=== PATIENT | female | born 1955 ===

== ENCOUNTER 2016-12-26 15:36 | Inpatient (IN) | payer OTHER, SELFPAY ==
[2016-12-26 15:36] VITALS: BMI 18.1
--- NOTE | 2016-12-26 16:10 | C.PDOC ---
History Of Present Illness 61 y/o female presents to the ED complaining of intermittent episodes of shortness of breath and chest tightness, worse since yesterday. Patient notes chest pain last night during the night and again today at noon which radiated to the neck and shoulders. she was brought by EMS and treated with Albuterol/ Atrovent and solumedrol enroute. Note that the patient has history of hypertension, COPD, [place], and prior CVA. She also has recent diagnosis of carcinoma of the rectum for which she has had surgery and follow up with GI. Patient also follows up in the clinic on a regular basis and is noted to have had several admissions for COPD exacerbation. Today patient also complains of some abdominal pain but she denies fever, nausea, vomiting, rash, pain/swelling of the legs, or other complaints. She admits to drinking alcohol 2 nights ago and now c/o feeling shaky. Time Seen by Provider: 12/26/16 15:49 Chief Complaint (Nursing): Respiratory Distress History Per: Patient History/Exam Limitations: no limitations Onset/Duration Of Symptoms: Days, Intermittent Episodes, Persistent, Worse Since (yesterday) Current Symptoms Are (Timing): Still Present Quality: Tightness Current Respiratory Medications: See Home Med List Recent travel outside of the [place]: No Past Medical History Reviewed: Historical Data, Nursing Documentation, Vital Signs Vital Signs: Last Vital Signs Temp 98.5 F 12/26/16 15:47 Pulse 87 12/26/16 17:21 Resp 18 12/26/16 17:21 BP 121/78 12/26/16 17:21 Pulse Ox 98 12/26/16 17:21 - Medical History PMH: Arthritis (B/L KNEE 4 YRS; L SH STIFF), Asthma, COPD, Emphysema, HTN Other PMH: colon ca Surgical History: Appendectomy - [facility] Procedures EXCISION OF ASCENDING COLON, ENDO (07/16/16) EXCISION OF RECTUM, ENDO, DIAGN (07/16/16) EXCISION OF TRANSVERSE COLON, ENDO (07/16/16) INDIVIDUAL PSYCHOTHERAPY, SUPPORTIVE (11/05/16) INTRODUCTION OF ELECTROL/WATER BAL INTO LOW GI, ENDO (07/16/16) Family History: States: Unknown Family Hx - Social History Hx Tobacco Use: Yes Hx Alcohol Use: No Hx Substance Use: No - Immunization History Hx Tetanus Toxoid Vaccination: No Hx Influenza Vaccination: No Hx Pneumococcal Vaccination: No Review Of Systems Except As Marked, All Systems Reviewed And Found Negative. Constitutional: Negative for: Fever Cardiovascular: Positive for: Chest Pain Respiratory: Positive for: Shortness of Breath Gastrointestinal: Positive for: Abdominal Pain. Negative for: Nausea, Vomiting Musculoskeletal: Negative for: Leg Pain (or swelling) Skin: Negative for: Rash Physical Exam - Physical Exam Appears: Non-toxic, Other (in respiratory distress) Skin: Normal Color, Warm, Dry, No Rash Head: Atraumatic, Normacephalic Eye(s): bilateral: Normal Inspection, PERRL Neck: Normal ROM Chest: Symmetrical, No Tenderness Cardiovascular: Rhythm Regular Respiratory: Rales (bibasilar), No Rhonchi, Wheezing (diffuse), Other (tachypnic ) Gastrointestinal/Abdominal: Soft, Tenderness, No Mass, No Guarding, No Rebound Back: Normal Inspection, No CVA Tenderness Extremity: Normal ROM, No Tenderness, No Swelling Extremity: Bilateral: Atraumatic, Normal Color And Temperature Neurological/Psych: Oriented x3, Normal Speech, Normal Cognition ED Course And Treatment - Laboratory Results Result Diagrams: 12/26/16 16:27 12/26/16 16:27 Lab Interpretation: No Acute Changes ECG: Interpreted By Me ECG Rhythm: Sinus Rhythm ECG Interpretation: No Acute Changes O2 Sat by Pulse Oximetry: 97 (ra) Pulse Ox Interpretation: Normal - Radiology CXR: Interpreted by Me CXR Interpretation: Yes: No Acute Disease, COPD, Other (chronic elevation of right hemidiaphragm, 2 clips seen in the rt hemithorax.) Progress Note: Patient comfortable without further respiratory distress. She states that she feels shaky after drinking 2 days ago and would like something to "calm down". She does not appear to have any signs of alcohol withdrawal. Reevaluation Time: 17:59 Reassessment Condition: Improved - Physician Consult Information Time Consulting Physician Contacted: 18:01 Physician Contacted: Daren Strickland Outcome Of Conversation: He knows the patient well and will keep her for exacerbation of COPD with chest pain. Medical Decision Making Medical Decision Making: Plan: * EKG * CXR * Blood Work * Nitrostat SL Tab Disposition - Disposition Disposition: HOSPITALIZED Disposition Time: 18:00 Condition: IMPROVED - POA Present On Arrival: None - Clinical Impression Clinical Impression: Acute exacerbation of chronic obstructive pulmonary disease (COPD) - Scribe Statement The provider has reviewed the documentation as recorded by the Scribe (Addie Portillo) Provider Attestation: All medical record entries made by the Scribe were at my direction and personally dictated by me. I have reviewed the chart and agree that the record accurately reflects my personal performance of the history, physical exam, medical decision making, and the department course for this patient. I have also personally directed, reviewed, and agree with the discharge instructions and disposition.
[2016-12-26 16:33] LABS: BASO # 0.1 K/uL (0.0-0.2); BASO % 0.6 % (0.0-2.0); EOS % 0.3 % (0.0-4.0); LYMPH % 28.9 % (20.0-40.0); MEAN CELL VOLUME 96.7 fL (81.0-99.0); MEAN CORPUSCULAR HEMOGLOBIN 32.1 pg (27.0-31.0); MEAN CORPUSCULAR HGB CONC 33.2 g/dL (33.0-37.0); MEAN PLATELET VOLUME 6.9 fL (7.2-11.7); MONO # 0.6 K/uL (0.0-0.8); MONO % 5.5 % (0.0-10.0); RED CELL DISTRIBUTION WIDTH 15.6 % (11.5-14.5); WHITE BLOOD COUNT 10.5 K/uL (4.8-10.8)
--- NOTE | 2016-12-26 16:36 | RAD ---
PROCEDURE: CHEST RADIOGRAPH, 1 VIEW HISTORY: chest pain COMPARISON: 11/04/2016. FINDINGS: LUNGS: No focal airspace opacity. PLEURA: No pneumothorax or pleural fluid seen.Biapical pleural parenchymal thickening noted. CARDIOVASCULAR: Normal. OSSEOUS STRUCTURES: The osseous structures demonstrate degenerative changes. VISUALIZED UPPER ABDOMEN: Upper abdomen is suboptimally evaluated. OTHER FINDINGS: Nonspecific elevation of the right hemidiaphragm and blunting of the right costophrenic angle essentially unchanged since the prior radiograph from 11/04/2016. Clips in the right paratracheal region. IMPRESSION: Clear lungs. No significant interval change.
[2016-12-26 16:41] LABS: CHLORIDE 104 mmol/L (98-107); POTASSIUM 3.8 mmol/L (3.6-5.2); SODIUM 140 mmol/L (132-148)
[2016-12-26 16:43] LABS: ALB/GLOB RATIO 1.4 (1.0-2.1); ALKALINE PHOSPHATASE 58 U/L (38-126); AST/SGOT 27 U/L (14-36); BILIRUBIN,TOTAL 0.6 mg/dL (0.2-1.3); CARBON DIOXIDE 21 mmol/L (22-30); GFR AFRICAN-AMERICAN > 60; TOTAL PROTEIN 6.5 g/dL (6.3-8.3)
[2016-12-26 16:44] LABS: ALT/SGPT 20 U/L (9-52); BLOOD UREA NITROGEN 16 mg/dL (7-17); CALCIUM 8.1 mg/dl (8.6-10.4); GLUCOSE,RANDOM 80 mg/dL (65-105)
[2016-12-26] MEDS ORDERED: Albuterol-Ipratrop 3 mg / 0.5 (3 ml) UD INH PRN (19:30)
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
[2016-12-26] MEDS ORDERED: cefTRIAXone IV 1 gm in Dextros 0 ML IVPB ONE (20:19)
[2016-12-26] MEDS ORDERED: Morphine 4 MG/ML VIAL ONE (20:32)
[2016-12-26] MEDS: Sodium Chloride 0.9% 1,000 ML IV SCH (20:44)
[2016-12-26] MEDS: Morphine 4 MG/ML VIAL IVP PRN (20:45)
[2016-12-27] MEDS: Morphine 4 MG/ML VIAL IVP PRN ×4 (00:49→18:05)
[2016-12-27] MEDS: Sodium Chloride 0.9% 1,000 ML IV SCH ×3 (04:53→15:45)
[2016-12-27 07:51] LABS: BASO % 0.1 % (0.0-2.0); HEMATOCRIT 43.2 % (34.0-47.0); LYMPH # 1.1 K/uL (1.0-4.3); LYMPH % 10.8 % (20.0-40.0); MEAN CELL VOLUME 98.1 fL (81.0-99.0); MEAN CORPUSCULAR HEMOGLOBIN 32.1 pg (27.0-31.0); MEAN CORPUSCULAR HGB CONC 32.7 g/dL (33.0-37.0); MEAN PLATELET VOLUME 7.4 fL (7.2-11.7); MONO # 0.4 K/uL (0.0-0.8); MONO % 4.3 % (0.0-10.0); NRBC % 0.1 % (0.0-2.0); RED CELL DISTRIBUTION WIDTH 15.7 % (11.5-14.5); WHITE BLOOD COUNT 10.2 K/uL (4.8-10.8)
[2016-12-27 07:53] LABS: CHLORIDE 103 mmol/L (98-107); POTASSIUM 4.6 mmol/L (3.6-5.2); SODIUM 138 mmol/L (132-148)
[2016-12-27 07:55] LABS: ALB/GLOB RATIO 1.5 (1.0-2.1); BILIRUBIN,TOTAL 0.7 mg/dL (0.2-1.3); CARBON DIOXIDE 23 mmol/L (22-30); CHOLESTEROL 139 mg/dL (0-199); GFR AFRICAN-AMERICAN > 60
[2016-12-27 07:56] LABS: ALKALINE PHOSPHATASE 64 U/L (38-126); ALT/SGPT 8 U/L (9-52); AST/SGOT 23 U/L (14-36); BLOOD UREA NITROGEN 12 mg/dL (7-17); CALCIUM 8.8 mg/dl (8.6-10.4); GLUCOSE,RANDOM 103 mg/dL (65-105); MAGNESIUM 1.9 mg/dL (1.6-2.3)
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
[2016-12-27] MEDS ORDERED: MethylPREDNISolone 40 mg Vial IVP SCH (10:00)
--- NOTE | 2016-12-27 10:40 | CP.PCM.PN ---
<Grace Domingo - Last Filed: 12/27/16 12:47> Subjective - Date & Time of Evaluation Date of Evaluation: 12/27/16 Time of Evaluation: 10:37 - Subjective Subjective: Patient seen and examined at bedside. She states she is feeling better today but continues to have abdominal cramping and shortness of breath. Patient describes her chest as feeling tight. She was only given one breathing treatment last night. Patient reports she was able to sleep well last night. She denies nausea but continues to have poor appetite. Objective - Vital Signs/Intake and Output Vital Signs (last 24 hours): Temp Pulse Resp BP Pulse Ox 98.2 F 79 20 149/87 99 12/27/16 09:30 12/27/16 09:30 12/27/16 09:30 12/27/16 09:30 12/27/16 04:30 Intake and Output: 12/27/16 12/27/16 06:59 18:59 Intake Total 900 Output Total 400 Balance 500 - Medications Medications: Current Medications Albuterol/Ipratropium (Duoneb 3 Mg/0.5 Mg (3 Ml) Ud) 3 ml INH RQ6 PRN PRN Reason: Shortness of Breath Amlodipine Besylate (Norvasc) 5 mg PO DAILY [facility] Last Admin: 12/27/16 09:23 Dose: 5 mg Aspirin (Ecotrin) 81 mg PO DAILY [facility] Budesonide (Pulmicort Respules) 0.25 mg INH RQ12 [facility] Escitalopram Oxalate (Lexapro) 5 mg PO DAILY [facility] Last Admin: 12/27/16 09:23 Dose: 5 mg Heparin Sodium (Porcine) (Heparin) 5,000 units SC Q12 [facility] Last Admin: 12/27/16 09:48 Dose: 5,000 units Sodium Chloride (Sodium Chloride 0.9%) 1,000 mls @ 100 mls/hr IV .Q10H [facility] Last Admin: 12/27/16 04:53 Dose: 100 mls/hr Lisinopril (Zestril) 5 mg PO DAILY [facility] Last Admin: 12/27/16 09:23 Dose: 5 mg Lorazepam (Ativan) 1 mg PO Q3H PRN PRN Reason: withdrawal Last Admin: 12/27/16 04:49 Dose: 1 mg Methylprednisolone (Solu-Medrol) 40 mg IVP TID [facility] Last Admin: 12/27/16 09:22 Dose: 40 mg Mirtazapine (Remeron) 7.5 mg PO HS [facility] Last Admin: 12/26/16 22:29 Dose: 7.5 mg Morphine Sulfate (Morphine) 3 mg IVP Q4 PRN PRN Reason: Pain, moderate (4-7) Last Admin: 12/27/16 04:49 Dose: 3 mg Ondansetron HCl (Zofran Inj) 4 mg IVP Q6H PRN PRN Reason: Nausea/Vomiting Tiotropium [place] (Spiriva) 18 mcg INH RQ24 [facility] - Labs Labs: 12/27/16 07:34 12/27/16 07:34 - Constitutional Appears: Non-toxic, No Acute Distress, Cachectic - Head Exam Head Exam: ATRAUMATIC, NORMAL INSPECTION, NORMOCEPHALIC - Eye Exam Eye Exam: EOMI, Normal appearance, PERRL - Neck Exam Neck Exam: Full ROM, Normal Inspection - Respiratory Exam Respiratory Exam: Wheezes, NORMAL BREATHING PATTERN - Cardiovascular Exam Cardiovascular Exam: +S1, +S2. absent: Tachycardia - GI/Abdominal Exam GI & Abdominal Exam: Soft, Normal Bowel Sounds. absent: Tenderness - Extremities Exam Extremities Exam: Normal Inspection. absent: Pedal Edema, Tenderness - Back Exam Back Exam: NORMAL INSPECTION - Neurological Exam Neurological Exam: Alert, Awake, Oriented x3 - Psychiatric Exam Psychiatric exam: Anxious - Skin Skin Exam: Intact, Normal Color, Warm Assessment and Plan - Assessment and Plan (Free Text) Assessment: Chest Pain Rule out Acute Coronary Syndrome Troponin I <0.0120, <0.0120, <0.0102 and EKGs (12/26, 16:04): normal sinus rhythm at 84 (12/26; 00:30) normal sinus rhythm at 92, left atrial enlargement. Chest X-ray: Clear lungs. No significant interval change. Continue on home medications: Norvasc 5 mg po daily, Zestril 5 mg po daily. Continue on Coreg 3.125 mg po BID and Aspirin 81 mg po daily Morphine 2 mg IVP q4 PRN for moderate pain hemoglobin a1c 5.1 triglycerides 75, cholesterol 139, LDL <30, HDL 109 Monitor Shortness of Breath History of COPD Started on Duoneb 3 ml INH RQ6 [facility] instead of PRN Continue on Pulmicort 0,25 mg INH RQ12, Spiriva 18 mcg INH RQ24, and Solumedrol 40 mg IVP TID Monitor Alcohol Abuse Disorder No active signs of withdrawal Ativan 1 mg po q3h PRN for withdrawal Normal Saline IV @100cc History of Rectal Adenocarcinoma Per GI, Dr. Nixon, patient was informed that rectal lesion was removed via endoscopic mucosal resection with negative margins per pathology report. Recommends surgical evaluation for wider excision where rectal lesion was to ensure complete resection to minimize risk of recurrence as there is a chance complete resection was not achieved. Patient requires close outpatient follow- up with frequent endoscopyic evaluations and sigmoidoscopy April 2017. Patient is requesting surgical evaluation. General surgery, Dr. Carey, consulted. Help appreciated. Start on Pepcid 20 mg po daily Start Ensure TID Depression Lexapro 5 mg po daily Started on Remeron 7.5 mg po HS for insomnia and poor appetite Prophylaxis Heparin 5000 U SC Q12 [facility] Zofran 4 mg IVP q6h PRN for nausea Heart Healthy Diet <Daren Strickland H - Last Filed: 12/27/16 15:42> Objective - Vital Signs/Intake and Output Vital Signs (last 24 hours): Temp Pulse Resp BP Pulse Ox 98.2 F 79 20 149/87 99 12/27/16 09:30 12/27/16 09:30 12/27/16 09:30 12/27/16 09:30 12/27/16 04:30 Intake and Output: 12/27/16 12/27/16 06:59 18:59 Intake Total 900 Output Total 400 Balance 500 - Medications Medications: Current Medications Albuterol/Ipratropium (Duoneb 3 Mg/0.5 Mg (3 Ml) Ud) 3 ml INH RQ6 [facility] Amlodipine Besylate (Norvasc) 5 mg PO DAILY [facility] Last Admin: 12/27/16 09:23 Dose: 5 mg Aspirin (Ecotrin) 81 mg PO DAILY [facility] Last Admin: 12/27/16 10:41 Dose: 81 mg Budesonide (Pulmicort Respules) 0.25 mg INH RQ12 [facility] Last Admin: 12/27/16 11:03 Dose: 0.25 mg Escitalopram Oxalate (Lexapro) 5 mg PO DAILY [facility] Last Admin: 12/27/16 09:23 Dose: 5 mg Famotidine (Pepcid) 20 mg PO DAILY [facility] Guaifenesin/Dextromethorphan (Robitussin Dm) 10 ml PO Q4H PRN PRN Reason: Cough and congestion Heparin Sodium (Porcine) (Heparin) 5,000 units SC Q12 [facility] Last Admin: 12/27/16 09:48 Dose: 5,000 units Sodium Chloride (Sodium Chloride 0.9%) 1,000 mls @ 100 mls/hr IV .Q10H [facility] Last Admin: 12/27/16 14:25 Dose: 100 mls/hr Lisinopril (Zestril) 5 mg PO DAILY [facility] Last Admin: 12/27/16 09:23 Dose: 5 mg Lorazepam (Ativan) 1 mg PO Q3H PRN PRN Reason: withdrawal Last Admin: 12/27/16 10:28 Dose: 1 mg Methylprednisolone (Solu-Medrol) 40 mg IVP Q8H [facility] Mirtazapine (Remeron) 7.5 mg PO HS [facility] Last Admin: 12/26/16 22:29 Dose: 7.5 mg Morphine Sulfate (Morphine) 3 mg IVP Q4 PRN PRN Reason: Pain, moderate (4-7) Last Admin: 12/27/16 10:28 Dose: 3 mg Ondansetron HCl (Zofran Inj) 4 mg IVP Q6H PRN PRN Reason: Nausea/Vomiting Tiotropium [place] (Spiriva) 18 mcg INH RQ24 [facility] Last Admin: 12/27/16 11:02 Dose: Not Given - Labs Labs: 12/27/16 07:34 12/27/16 07:34 Attending/Attestation - Attestation I have personally seen and examined this patient.: Yes I have fully participated in the care of the patient.: Yes I have reviewed all pertinent clinical information, including history, physical exam and plan: Yes Notes (Text): Medical attending: Patient was seen and examined by me, agrees the above note by medical records tech. The patient is still on IV Solu-Medrol, Pulmicort, Spiriva. When we saw her she she did appear more calm than when we saw her the previous night, she is getting the Ativan for withdrawal. Her breathing is not as labored as yesterday however she still has the amount of wheezing bilaterally on exam. She was also evaluated by GI as well with regards to the history of rectal CA, and at this there is a surgical evaluation pending in case there needs to be further removal the area. Thank you very much, Daren Strickland
[2016-12-27] MEDS: Tiotropium 18 mcg Cap For Inhalation INH SCH (11:02)
[2016-12-27] MEDS: Budesonide 0.25 mg/2 ml Inhal Susp UD INH SCH ×2 (11:03→19:49)
[2016-12-27 14:56] LABS: CARCINOEMBRYONIC ANTIGEN 2.9 ng/mL (0-3.0)
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
[2016-12-27] MEDS: MethylPREDNISolone 40 mg Vial IVP SCH (16:51)
[2016-12-27] MEDS: Albuterol-Ipratrop 3 mg / 0.5 (3 ml) UD INH SCH (19:49)
[2016-12-28] MEDS: Albuterol-Ipratrop 3 mg / 0.5 (3 ml) UD INH SCH ×4 (01:21→20:02)
[2016-12-28] MEDS: Sodium Chloride 0.9% 1,000 ML IV SCH (01:39)
[2016-12-28] MEDS: MethylPREDNISolone 40 mg Vial IVP SCH ×3 (01:40→17:27)
[2016-12-28] MEDS: Morphine 4 MG/ML VIAL IVP PRN ×3 (05:23→17:37)
--- NOTE | 2016-12-28 07:10 | CP.PCM.PN ---
<Grace Domingo - Last Filed: 12/28/16 15:35> Subjective - Date & Time of Evaluation Date of Evaluation: 12/28/16 Time of Evaluation: 07:09 - Subjective Subjective: Patient seen and examined at bedside. Patient states she continues to feel chest congestion, wheezing, cough and shortness of breath. She denies fever and chills. Patient reports she is tolerating Ensures but has not eaten other food. She continues to have abdominal pain. Patient denies chest pain, palpitations, nausea, vomiting, diarrhea, constipation and dysuria. Objective - Vital Signs/Intake and Output Vital Signs (last 24 hours): Temp Pulse Resp BP Pulse Ox 98 F 81 20 138/85 97 12/27/16 23:35 12/28/16 00:00 12/27/16 23:35 12/27/16 23:35 12/27/16 23:35 Intake and Output: 12/28/16 12/28/16 06:59 18:59 Intake Total 950 Balance 950 - Medications Medications: Current Medications Albuterol/Ipratropium (Duoneb 3 Mg/0.5 Mg (3 Ml) Ud) 3 ml INH RQ6 [facility] Last Admin: 12/28/16 01:21 Dose: Not Given Amlodipine Besylate (Norvasc) 5 mg PO DAILY [facility] Last Admin: 12/27/16 09:23 Dose: 5 mg Aspirin (Ecotrin) 81 mg PO DAILY [facility] Last Admin: 12/27/16 10:41 Dose: 81 mg Budesonide (Pulmicort Respules) 0.25 mg INH RQ12 [facility] Last Admin: 12/27/16 19:49 Dose: 0.25 mg Escitalopram Oxalate (Lexapro) 5 mg PO DAILY [facility] Last Admin: 12/27/16 09:23 Dose: 5 mg Famotidine (Pepcid) 20 mg PO DAILY [facility] Guaifenesin/Dextromethorphan (Robitussin Dm) 10 ml PO Q4H PRN PRN Reason: Cough and congestion Heparin Sodium (Porcine) (Heparin) 5,000 units SC Q12 [facility] Last Admin: 12/27/16 21:39 Dose: 5,000 units Sodium Chloride (Sodium Chloride 0.9%) 1,000 mls @ 100 mls/hr IV .Q10H [facility] Last Admin: 04/21/17 01:39 Dose: 100 mls/hr Lisinopril (Zestril) 5 mg PO DAILY [facility] Last Admin: 12/27/16 09:23 Dose: 5 mg Lorazepam (Ativan) 1 mg PO Q3H PRN PRN Reason: withdrawal Last Admin: 12/28/16 06:31 Dose: 1 mg Methylprednisolone (Solu-Medrol) 40 mg IVP Q8H [facility] Last Admin: 12/28/16 01:40 Dose: 40 mg Mirtazapine (Remeron) 7.5 mg PO HS [facility] Last Admin: 12/27/16 21:59 Dose: 7.5 mg Morphine Sulfate (Morphine) 3 mg IVP Q4 PRN PRN Reason: Pain, moderate (4-7) Last Admin: 12/28/16 05:23 Dose: 3 mg Ondansetron HCl (Zofran Inj) 4 mg IVP Q6H PRN PRN Reason: Nausea/Vomiting Tiotropium Win[place]red (Spiriva) 18 mcg INH RQ24 [facility] Last Admin: 12/27/16 11:02 Dose: Not Given - Labs Labs: 12/27/16 07:34 12/27/16 07:34 - Constitutional Appears: Non-toxic, No Acute Distress, Cachectic - Head Exam Head Exam: ATRAUMATIC, NORMAL INSPECTION, NORMOCEPHALIC - Eye Exam Eye Exam: EOMI, PERRL - ENT Exam ENT Exam: Mucous Membranes Moist - Respiratory Exam Respiratory Exam: Rhonchi, Wheezes, NORMAL BREATHING PATTERN. absent: Rales - Cardiovascular Exam Cardiovascular Exam: +S1, +S2. absent: Tachycardia - GI/Abdominal Exam GI & Abdominal Exam: Soft, Normal Bowel Sounds. absent: Tenderness - Extremities Exam Extremities Exam: Normal Inspection. absent: Pedal Edema, Tenderness - Neurological Exam Neurological Exam: Alert, Awake, Oriented x3 - Psychiatric Exam Psychiatric exam: Normal Affect, Normal Mood - Skin Skin Exam: Intact, Normal Color, Warm Assessment and Plan - Assessment and Plan (Free Text) Assessment: Chest Pain Rule out Acute Coronary Syndrome Troponin I <0.0120, <0.0120, <0.0102 and EKGs (12/26, 16:04): normal sinus rhythm at 84 (12/26; 00:30) normal sinus rhythm at 92, left atrial enlargement. Chest X-ray: Clear lungs. No significant interval change. Continue on home medications: Norvasc 5 mg po daily, Zestril 5 mg po daily. Continue on Coreg 3.125 mg po BID and Aspirin 81 mg po daily Morphine 2 mg IVP q4 PRN for moderate pain hemoglobin a1c 5.1 triglycerides 75, cholesterol 139, LDL <30, HDL 109 Monitor Shortness of Breath History of COPD Started on Avelox 400 mg IVPB Q24h for possible pneumonia. Follow-up Procalcitonin Started on Duoneb 3 ml INH RQ6 [facility] instead of PRN Continue on Pulmicort 0,25 mg INH RQ12, Spiriva 18 mcg INH RQ24, and Solumedrol 40 mg IVP TID Monitor Alcohol Abuse Disorder No active signs of withdrawal Ativan 1 mg po q3h PRN for withdrawal Normal Saline IV @100cc History of Rectal Adenocarcinoma Per GI, Dr. Nixon, patient was informed that rectal lesion was removed via endoscopic mucosal resection with negative margins per pathology report. Recommends surgical evaluation for wider excision where rectal lesion was to ensure complete resection to minimize risk of recurrence as there is a chance complete resection was not achieved. Patient requires close outpatient follow- up with frequent endoscopyic evaluations and sigmoidoscopy April 2017. Patient is requesting surgical evaluation. General surgery, Dr. Carey, consulted. Help appreciated. Per surgery, continue medical management. No emergent or urgent need for surgery. Start on Pepcid 20 mg po daily Start Ensure TID Depression Lexapro 5 mg po daily Started on Remeron 7.5 mg po HS for insomnia and poor appetite Insomnia Start Atarax 25 mg po HS Prophylaxis Heparin 5000 U SC Q12 [facility] Zofran 4 mg IVP q6h PRN for nausea Heart Healthy Diet <Daren Strickland H - Last Filed: 12/28/16 15:55> Objective - Vital Signs/Intake and Output Vital Signs (last 24 hours): Temp Pulse Resp BP Pulse Ox 97.5 F L 78 18 137/87 97 12/28/16 15:41 12/28/16 15:41 12/28/16 15:41 12/28/16 15:41 12/28/16 15:41 Intake and Output: 12/28/16 12/28/16 06:59 18:59 Intake Total 950 Balance 950 - Medications Medications: Current Medications Albuterol/Ipratropium (Duoneb 3 Mg/0.5 Mg (3 Ml) Ud) 3 ml INH RQ6 [facility] Last Admin: 12/28/16 13:35 Dose: 3 ml Amlodipine Besylate (Norvasc) 5 mg PO DAILY [facility] Last Admin: 12/28/16 10:31 Dose: 5 mg Aspirin (Ecotrin) 81 mg PO DAILY [facility] Last Admin: 12/28/16 10:31 Dose: 81 mg Budesonide (Pulmicort Respules) 0.25 mg INH RQ12 [facility] Last Admin: 12/28/16 08:04 Dose: 0.25 mg Escitalopram Oxalate (Lexapro) 5 mg PO DAILY [facility] Last Admin: 12/28/16 10:51 Dose: 5 mg Famotidine (Pepcid) 20 mg PO DAILY [facility] Last Admin: 12/28/16 10:31 Dose: 20 mg Guaifenesin/Dextromethorphan (Robitussin Dm) 10 ml PO Q4H PRN PRN Reason: Cough and congestion Last Admin: 12/28/16 10:51 Dose: 10 ml Heparin Sodium (Porcine) (Heparin) 5,000 units SC Q12 [facility] Last Admin: 12/28/16 10:31 Dose: 5,000 units Hydroxyzine HCl (Atarax) 25 mg PO HS PRN PRN Reason: Insomnia Sodium Chloride (Sodium Chloride 0.9%) 1,000 mls @ 100 mls/hr IV .Q10H [facility] Last Admin: 12/28/16 01:39 Dose: 100 mls/hr Moxifloxacin HCl (Avelox Iv 400mg/250ml Ns) 250 mls @ 167 mls/hr IVPB Q24H [facility] Lisinopril (Zestril) 5 mg PO DAILY [facility] Last Admin: 12/28/16 10:31 Dose: 5 mg Lorazepam (Ativan) 1 mg PO Q3H PRN PRN Reason: withdrawal Last Admin: 12/28/16 10:56 Dose: 1 mg Methylprednisolone (Solu-Medrol) 40 mg IVP Q8H [facility] Last Admin: 12/28/16 09:40 Dose: 40 mg Mirtazapine (Remeron) 7.5 mg PO HS [facility] Last Admin: 12/27/16 21:59 Dose: 7.5 mg Morphine Sulfate (Morphine) 3 mg IVP Q4 PRN PRN Reason: Pain, moderate (4-7) Last Admin: 12/28/16 10:40 Dose: 3 mg Ondansetron HCl (Zofran Inj) 4 mg IVP Q6H PRN PRN Reason: Nausea/Vomiting Tiotropium Winifred (Spiriva) 18 mcg INH RQ24 [facility] Last Admin: 12/28/16 10:31 Dose: Not Given - Labs Labs: 12/28/16 07:17 12/28/16 07:17 Attending/Attestation - Attestation I have personally seen and examined this patient.: Yes I have fully participated in the care of the patient.: Yes I have reviewed all pertinent clinical information, including history, physical exam and plan: Yes Notes (Text): 12/28/16 15:51 Medical Attending: Patient was seen and examined by me. Agree with the above note by the resident. Patient was still having wheezing. It was better than before. At this time continue on IV solumedrol as well as well IV avelox. She is also on pulmicort as well as spiriva and nebulizer treatments. She still appears to be very anxious - yesterday was started on xanax TID. She reports she cannot sleep due to anxiety. She does not want to try trazadone/ benadryl. Camacho did not work either [employer]
[2016-12-28 07:45] LABS: CHLORIDE 100 mmol/L (98-107); POTASSIUM 3.7 mmol/L (3.6-5.2); SODIUM 137 mmol/L (132-148)
[2016-12-28 07:46] LABS: BASO % 0.1 % (0.0-2.0); HEMATOCRIT 42.1 % (34.0-47.0); LYMPH # 0.9 K/uL (1.0-4.3); LYMPH % 8.2 % (20.0-40.0); MEAN CELL VOLUME 97.3 fL (81.0-99.0); MEAN CORPUSCULAR HEMOGLOBIN 32.4 pg (27.0-31.0); MEAN CORPUSCULAR HGB CONC 33.3 g/dL (33.0-37.0); MEAN PLATELET VOLUME 7.7 fL (7.2-11.7); MONO # 0.2 K/uL (0.0-0.8); MONO % 2.1 % (0.0-10.0); NRBC % 0.1 % (0.0-2.0); PLATELET COUNT 206 K/uL (130-400); RED CELL DISTRIBUTION WIDTH 15.8 % (11.5-14.5)
[2016-12-28 07:47] LABS: GFR AFRICAN-AMERICAN > 60
[2016-12-28 07:48] LABS: ALB/GLOB RATIO 1.5 (1.0-2.1); ALKALINE PHOSPHATASE 74 U/L (38-126); ALT/SGPT 15 U/L (9-52); AST/SGOT 21 U/L (14-36); BILIRUBIN,TOTAL 0.7 mg/dL (0.2-1.3); BLOOD UREA NITROGEN 20 mg/dL (7-17); CALCIUM 8.7 mg/dl (8.6-10.4); CARBON DIOXIDE 24 mmol/L (22-30); GLUCOSE,RANDOM 124 mg/dL (65-105); TOTAL PROTEIN 6.6 g/dL (6.3-8.3)
[2016-12-28] MEDS: Budesonide 0.25 mg/2 ml Inhal Susp UD INH SCH ×2 (08:04→20:02)
[2016-12-28] MEDS ORDERED: Potassium Chloride 20 mEq ER Tab PO STA (09:27)
[2016-12-28 09:59] LABS: NEUTROPHIL 86 % (50-75); NUCLEATED RED BLOOD CELL 1 % (0-0); TOTAL CELLS COUNTED 100
[2016-12-28] MEDS: Tiotropium 18 mcg Cap For Inhalation INH SCH (10:31)
[2016-12-28] MEDS: guaiFENesin DM 200 mg-20 mg/10 ml UD PO PRN (10:51)
--- NOTE | 2016-12-28 10:58 | CP.PCM.PN ---
Subjective - Date & Time of Evaluation Date of Evaluation: 12/28/16 Time of Evaluation: 06:45 - Subjective Subjective: General Surgery Dr. Carey Pt S&E @bedside. NAEO. c/o diffuse abd pain worse in lower quadrants and pelvis. some nausea but no vomiting. tolerating diet. Objective - Vital Signs/Intake and Output Vital Signs (last 24 hours): Temp Pulse Resp BP Pulse Ox 97.8 F 61 20 148/88 97 12/28/16 09:12 12/28/16 09:12 12/28/16 09:12 12/28/16 09:12 12/28/16 09:12 Intake and Output: 12/28/16 12/28/16 06:59 18:59 Intake Total 950 Balance 950 - Medications Medications: Current Medications Albuterol/Ipratropium (Duoneb 3 Mg/0.5 Mg (3 Ml) Ud) 3 ml INH RQ6 [facility] Last Admin: 12/28/16 08:04 Dose: 3 ml Amlodipine Besylate (Norvasc) 5 mg PO DAILY [facility] Last Admin: 12/28/16 10:31 Dose: 5 mg Aspirin (Ecotrin) 81 mg PO DAILY [facility] Last Admin: 12/28/16 10:31 Dose: 81 mg Budesonide (Pulmicort Respules) 0.25 mg INH RQ12 [facility] Last Admin: 12/28/16 08:04 Dose: 0.25 mg Escitalopram Oxalate (Lexapro) 5 mg PO DAILY [facility] Last Admin: 12/28/16 10:51 Dose: 5 mg Famotidine (Pepcid) 20 mg PO DAILY [facility] Last Admin: 12/28/16 10:31 Dose: 20 mg Guaifenesin/Dextromethorphan (Robitussin Dm) 10 ml PO Q4H PRN PRN Reason: Cough and congestion Last Admin: 12/28/16 10:51 Dose: 10 ml Heparin Sodium (Porcine) (Heparin) 5,000 units SC Q12 [facility] Last Admin: 12/28/16 10:31 Dose: 5,000 units Sodium Chloride (Sodium Chloride 0.9%) 1,000 mls @ 100 mls/hr IV .Q10H [facility] Last Admin: 12/28/16 01:39 Dose: 100 mls/hr Lisinopril (Zestril) 5 mg PO DAILY [facility] Last Admin: 12/28/16 10:31 Dose: 5 mg Lorazepam (Ativan) 1 mg PO Q3H PRN PRN Reason: withdrawal Last Admin: 12/28/16 06:31 Dose: 1 mg Methylprednisolone (Solu-Medrol) 40 mg IVP Q8H [facility] Last Admin: 12/28/16 09:40 Dose: 40 mg Mirtazapine (Remeron) 7.5 mg PO HS [facility] Last Admin: 12/27/16 21:59 Dose: 7.5 mg Morphine Sulfate (Morphine) 3 mg IVP Q4 PRN PRN Reason: Pain, moderate (4-7) Last Admin: 12/28/16 10:40 Dose: 3 mg Ondansetron HCl (Zofran Inj) 4 mg IVP Q6H PRN PRN Reason: Nausea/Vomiting Tiotropium [place] (Spiriva) 18 mcg INH RQ24 [facility] Last Admin: 12/28/16 10:31 Dose: Not Given - Labs Labs: 12/28/16 07:17 12/28/16 07:17 - Constitutional Appears: Non-toxic, No Acute Distress, Cachectic - Head Exam Head Exam: NORMAL INSPECTION - Eye Exam Eye Exam: Normal appearance - ENT Exam ENT Exam: Mucous Membranes Moist - Respiratory Exam Respiratory Exam: NORMAL BREATHING PATTERN. absent: Accessory Muscle Use, Respiratory Distress - GI/Abdominal Exam GI & Abdominal Exam: Guarding (voluntary), Soft, Tenderness (TTP diffusely; LLQ> RLQ). absent: Distended, Mass Additional comments: scaring from previous surgery present - Rectal Exam Rectal Exam: NORMAL INSPECTION. absent: Hemorrhoids Additional comments: stool present in rectal vault. no mass or lesions palpable - Extremities Exam Extremities Exam: Normal Inspection - Neurological Exam Neurological Exam: Alert, Awake, Oriented x3 - Psychiatric Exam Psychiatric exam: Normal Affect, Normal Mood - Skin Skin Exam: Dry, Intact, Normal Color, Warm Assessment and Plan - Assessment and Plan (Free Text) Assessment: 61 noncompliant F w/ rectal adenocarcinoma (negative margins) and lower abdominal pain - may need pelvic imaging vs repeat colonoscopy - cont medical management - no emergent/urgent need for surgery Further recs per Dr. Aurelio Cook DO PGY1
--- NOTE | 2016-12-28 11:48 | CARD ---
APPROVED REPORT EKG Measurement Heart [id number] <Conclusion> Normal sinus rhythm Possible Left atrial enlargement Septal infarct, age undetermined Abnormal ECG
--- NOTE | 2016-12-28 11:49 | CARD ---
APPROVED REPORT EKG Measurement Heart [id number] <Conclusion> Normal sinus rhythm Normal ECG
[2016-12-28] MEDS: Moxifloxacin IV 400mg/250ml NS 250 ML IVPB SCH (17:26)
[2016-12-29] MEDS: MethylPREDNISolone 40 mg Vial IVP SCH ×5 (01:20→21:39)
[2016-12-29] MEDS: Sodium Chloride 0.9% 1,000 ML IV SCH ×3 (01:20→23:49)
[2016-12-29] MEDS: Morphine 4 MG/ML VIAL IVP PRN ×4 (01:27→22:41)
[2016-12-29 02:51] LABS: HEMATOCRIT 36.6 % (34.0-47.0); LYMPH # 0.9 K/uL (1.0-4.3); LYMPH % 6.4 % (20.0-40.0); MEAN CELL VOLUME 97.2 fL (81.0-99.0); MEAN CORPUSCULAR HEMOGLOBIN 31.6 pg (27.0-31.0); MEAN CORPUSCULAR HGB CONC 32.5 g/dL (33.0-37.0); MEAN PLATELET VOLUME 7.3 fL (7.2-11.7); MONO # 0.7 K/uL (0.0-0.8); PLATELET COUNT 193 K/uL (130-400); RED CELL DISTRIBUTION WIDTH 15.6 % (11.5-14.5); WHITE BLOOD COUNT 14.5 K/uL (4.8-10.8)
[2016-12-29 02:59] LABS: CHLORIDE 105 mmol/L (98-107)
[2016-12-29 03:00] LABS: SODIUM 138 mmol/L (132-148)
[2016-12-29 03:02] LABS: ALB/GLOB RATIO 1.5 (1.0-2.1); ALKALINE PHOSPHATASE 71 U/L (38-126); ALT/SGPT 15 U/L (9-52); AST/SGOT 19 U/L (14-36); BILIRUBIN,TOTAL 0.3 mg/dL (0.2-1.3); BLOOD UREA NITROGEN 18 mg/dL (7-17); CARBON DIOXIDE 23 mmol/L (22-30); GFR AFRICAN-AMERICAN > 60; TOTAL PROTEIN 5.6 g/dL (6.3-8.3)
[2016-12-29 03:03] LABS: CALCIUM 8.4 mg/dl (8.6-10.4); GLUCOSE,RANDOM 123 mg/dL (65-105); MAGNESIUM 1.9 mg/dL (1.6-2.3)
[2016-12-29 04:30] LABS: NEUTROPHIL 87 % (50-75); TOTAL CELLS COUNTED 100
[2016-12-29] MEDS: Budesonide 0.25 mg/2 ml Inhal Susp UD INH SCH ×2 (08:11→20:43)
[2016-12-29] MEDS: Albuterol-Ipratrop 3 mg / 0.5 (3 ml) UD INH SCH ×3 (08:11→20:42)
[2016-12-29] MEDS: Tiotropium 18 mcg Cap For Inhalation INH SCH (09:05)
--- NOTE | 2016-12-29 09:20 | CP.PCM.PN ---
Subjective - Date & Time of Evaluation Date of Evaluation: 12/29/16 Time of Evaluation: 08:00 - Subjective Subjective: Patient explained her breathing seemed to be easier now. She reports still having some shakes and tremors needing ativan IV. Will decrease solumedrol to 20mg IV TID, continue with the inhaled steroids as well as singulair and nebulizers. She reports still difficulty sleeping at night. Will try restoril x 1 tonight She is ambulating, also tolerating diet. Like yesterday and during admission, she has a lot of stress and anxiety. Objective - Vital Signs/Intake and Output Vital Signs (last 24 hours): Temp Pulse Resp BP Pulse Ox 98.2 F 67 20 158/94 H 95 12/29/16 08:53 12/29/16 08:53 12/29/16 08:53 12/29/16 08:53 12/29/16 08:53 Intake and Output: 12/29/16 12/29/16 06:59 18:59 Intake Total 1600 Output Total 400 Balance 1200 - Medications Medications: Current Medications Albuterol/Ipratropium (Duoneb 3 Mg/0.5 Mg (3 Ml) Ud) 3 ml INH RQ6 [facility] Last Admin: 12/28/16 20:02 Dose: 3 ml Amlodipine Besylate (Norvasc) 5 mg PO DAILY [facility] Last Admin: 12/29/16 09:14 Dose: 5 mg Aspirin (Ecotrin) 81 mg PO DAILY [facility] Last Admin: 12/29/16 09:14 Dose: 81 mg Budesonide (Pulmicort Respules) 0.25 mg INH RQ12 [facility] Last Admin: 12/28/16 20:02 Dose: 0.25 mg Escitalopram Oxalate (Lexapro) 5 mg PO DAILY [facility] Last Admin: 12/29/16 09:14 Dose: 5 mg Famotidine (Pepcid) 20 mg PO DAILY [facility] Last Admin: 12/29/16 09:14 Dose: 20 mg Guaifenesin/Dextromethorphan (Robitussin Dm) 10 ml PO Q4H PRN PRN Reason: Cough and congestion Last Admin: 12/28/16 10:51 Dose: 10 ml Heparin Sodium (Porcine) (Heparin) 5,000 units SC Q12 [facility] Last Admin: 12/29/16 09:14 Dose: 5,000 units Hydroxyzine HCl (Atarax) 25 mg PO HS PRN PRN Reason: Insomnia Sodium Chloride (Sodium Chloride 0.9%) 1,000 mls @ 100 mls/hr IV .Q10H [facility] Last Admin: 12/29/16 08:06 Dose: Not Given Moxifloxacin HCl (Avelox Iv 400mg/250ml Ns) 250 mls @ 167 mls/hr IVPB Q24H [facility] Last Admin: 12/28/16 17:26 Dose: 167 mls/hr Lisinopril (Zestril) 5 mg PO DAILY [facility] Last Admin: 12/29/16 09:14 Dose: 5 mg Lorazepam (Ativan) 1 mg PO Q3H PRN PRN Reason: withdrawal Last Admin: 12/29/16 08:18 Dose: 1 mg Methylprednisolone (Solu-Medrol) 40 mg IVP Q8H [facility] Last Admin: 12/29/16 09:14 Dose: 40 mg Mirtazapine (Remeron) 7.5 mg PO HS [facility] Last Admin: 12/28/16 21:30 Dose: 7.5 mg Morphine Sulfate (Morphine) 3 mg IVP Q4 PRN PRN Reason: Pain, moderate (4-7) Last Admin: 12/29/16 08:11 Dose: 3 mg Ondansetron HCl (Zofran Inj) 4 mg IVP Q6H PRN PRN Reason: Nausea/Vomiting Last Admin: 12/29/16 09:13 Dose: 4 mg Tiotropium [place] (Spiriva) 18 mcg INH RQ24 [facility] Last Admin: 12/28/16 10:31 Dose: Not Given - Labs Labs: 12/29/16 02:47 12/29/16 02:47 - Constitutional Appears: No Acute Distress, Chronically Ill - Head Exam Head Exam: NORMAL INSPECTION - Eye Exam Eye Exam: EOMI - ENT Exam ENT Exam: Mucous Membranes Moist - Respiratory Exam Respiratory Exam: Rales, Wheezes - Cardiovascular Exam Cardiovascular Exam: REGULAR RHYTHM - GI/Abdominal Exam GI & Abdominal Exam: Soft, Normal Bowel Sounds - Neurological Exam Neurological Exam: Alert, Awake, CN II-XII Intact, Oriented x3 Neuro motor strength exam: Left Upper Extremity: 5, Right Upper Extremity: 5, Left Lower Extremity: 5, Right Lower Extremity: 5 - Psychiatric Exam Psychiatric exam: Anxious Additional comments: As like before, she is very anxious, appears very depressed - Skin Skin Exam: Warm Assessment and Plan - Assessment and Plan (Free Text) Assessment: COPD, Shortness of Breath, history of smoking 12/29: Today decrease solumedrol to 20 TID, continue pulmicort as well as Spiriva. Currently on Avelox, afebrile - the WBC maybe from the solumedrol being given. Procalcitonin is low. Avelox 400 mg IVPB Q24h for possible pneumonia. Follow-up Procalcitonin Duoneb 3 ml INH RQ6 [facility] instead of PRN Continue on Pulmicort 0,25 mg INH RQ12, Spiriva 18 mcg INH RQ24, Alcohol Abuse Disorder 12/29: She says less shaking today, continue PRN Ativan No active signs of withdrawal Ativan 1 mg po q3h PRN for withdrawal Normal Saline IV @100cc Insomnia 12/29: Will try restoril x 1 today - she reports still unable to sleep. Chest Pain 12/29: Cardiac enzymes negative Rule out Acute Coronary Syndrome Troponin I <0.0120, <0.0120, <0.0102 and EKGs (12/26, 16:04): normal sinus rhythm at 84 (12/26; 00:30) normal sinus rhythm at 92, left atrial enlargement. Chest X-ray: Clear lungs. No significant interval change. Continue on home medications: Norvasc 5 mg po daily, Zestril 5 mg po daily. Continue on Coreg 3.125 mg po BID and Aspirin 81 mg po daily Morphine 2 mg IVP q4 PRN for moderate pain hemoglobin a1c 5.1 triglycerides 75, cholesterol 139, LDL <30, HDL 109 Monitor History of Rectal Adenocarcinoma "Per GI, Dr. Nixon, patient was informed that rectal lesion was removed via endoscopic mucosal resection with negative margins per pathology report. Recommends surgical evaluation for wider excision where rectal lesion was to ensure complete resection to minimize risk of recurrence as there is a chance complete resection was not achieved. Patient requires close outpatient follow- up with frequent endoscopyic evaluations and sigmoidoscopy April 2017. Patient is requesting surgical evaluation. General surgery, Dr. Carey, consulted. Help appreciated. Per surgery, continue medical management. No emergent or urgent need for surgery. " Depression Lexapro 5 mg po daily Started on Remeron 7.5 mg po HS for insomnia and poor appetite Prophylaxis Heparin 5000 U SC Q12 [facility] Zofran 4 mg IVP q6h PRN for nausea Heart Healthy Diet
[2016-12-29] MEDS: Moxifloxacin IV 400mg/250ml NS 250 ML IVPB SCH (13:59)
[2016-12-30] MEDS: Albuterol-Ipratrop 3 mg / 0.5 (3 ml) UD INH SCH ×4 (02:09→20:23)
[2016-12-30] MEDS: Morphine 4 MG/ML VIAL IVP PRN ×4 (04:45→21:09)
[2016-12-30] MEDS: MethylPREDNISolone 40 mg Vial IVP SCH (05:00)
[2016-12-30 08:19] LABS: CHLORIDE 103 mmol/L (98-107)
[2016-12-30 08:20] LABS: POTASSIUM 4.3 mmol/L (3.6-5.2); SODIUM 137 mmol/L (132-148)
[2016-12-30 08:22] LABS: ALB/GLOB RATIO 1.4 (1.0-2.1); ALKALINE PHOSPHATASE 48 U/L (38-126); AST/SGOT 36 U/L (14-36); BASO % 0.1 % (0.0-2.0); BILIRUBIN,TOTAL 0.6 mg/dL (0.2-1.3); CARBON DIOXIDE 23 mmol/L (22-30); GFR AFRICAN-AMERICAN > 60; HEMATOCRIT 38.3 % (34.0-47.0); LYMPH # 1.2 K/uL (1.0-4.3); LYMPH % 8.3 % (20.0-40.0); MEAN CELL VOLUME 98.4 fL (81.0-99.0); MEAN CORPUSCULAR HEMOGLOBIN 32.3 pg (27.0-31.0); MEAN CORPUSCULAR HGB CONC 32.8 g/dL (33.0-37.0); MONO # 0.8 K/uL (0.0-0.8); MONO % 5.7 % (0.0-10.0); PLATELET COUNT 204 K/uL (130-400); RED CELL DISTRIBUTION WIDTH 15.8 % (11.5-14.5); TOTAL PROTEIN 5.9 g/dL (6.3-8.3); WHITE BLOOD COUNT 14.8 K/uL (4.8-10.8)
[2016-12-30 08:23] LABS: ALT/SGPT 22 U/L (9-52); BLOOD UREA NITROGEN 21 mg/dL (7-17); CALCIUM 8.2 mg/dl (8.6-10.4); GLUCOSE,RANDOM 123 mg/dL (65-105)
[2016-12-30] MEDS: Budesonide 0.25 mg/2 ml Inhal Susp UD INH SCH ×2 (09:01→20:23)
[2016-12-30] MEDS: Tiotropium 18 mcg Cap For Inhalation INH SCH (09:02)
--- NOTE | 2016-12-30 10:21 | CP.PCM.PN ---
Subjective - Date & Time of Evaluation Date of Evaluation: 12/30/16 Time of Evaluation: 10:00 - Subjective Subjective: Patient appeared to be more calm and reports she slept ok last night. She still has some wheezing on exam, but she reports it's much easier. Less tremors and withdrawl symptoms as well Today will DC solumedrol IV and change to PO Prednisone Objective - Vital Signs/Intake and Output Vital Signs (last 24 hours): Temp Pulse Resp BP Pulse Ox 98.7 F 63 18 164/84 H 100 12/30/16 07:40 12/30/16 07:42 12/30/16 07:40 12/30/16 07:40 12/30/16 07:40 Intake and Output: 12/30/16 12/30/16 06:59 18:59 Intake Total 1600 Balance 1600 - Medications Medications: Current Medications Albuterol/Ipratropium (Duoneb 3 Mg/0.5 Mg (3 Ml) Ud) 3 ml INH RQ6 [facility] Last Admin: 12/30/16 09:00 Dose: 3 ml Amlodipine Besylate (Norvasc) 5 mg PO DAILY [facility] Last Admin: 12/30/16 09:10 Dose: 5 mg Aspirin (Ecotrin) 81 mg PO DAILY [facility] Last Admin: 12/30/16 09:10 Dose: 81 mg Budesonide (Pulmicort Respules) 0.25 mg INH RQ12 [facility] Last Admin: 12/30/16 09:01 Dose: 0.25 mg Escitalopram Oxalate (Lexapro) 5 mg PO DAILY [facility] Last Admin: 12/30/16 09:10 Dose: 5 mg Famotidine (Pepcid) 20 mg PO DAILY [facility] Last Admin: 12/30/16 09:10 Dose: 20 mg Guaifenesin/Dextromethorphan (Robitussin Dm) 10 ml PO Q4H PRN PRN Reason: Cough and congestion Last Admin: 12/28/16 10:51 Dose: 10 ml Moxifloxacin HCl (Avelox Iv 400mg/250ml Ns) 250 mls @ 167 mls/hr IVPB Q24H [facility] Last Admin: 12/29/16 13:59 Dose: 167 mls/hr Lisinopril (Zestril) 5 mg PO DAILY [facility] Last Admin: 12/30/16 09:10 Dose: 5 mg Lorazepam (Ativan) 1 mg PO Q3H PRN PRN Reason: withdrawal Last Admin: 12/30/16 09:10 Dose: 1 mg Mirtazapine (Remeron) 7.5 mg PO HS [facility] Last Admin: 12/29/16 22:08 Dose: 7.5 mg Morphine Sulfate (Morphine) 3 mg IVP Q4 PRN PRN Reason: Pain, moderate (4-7) Last Admin: 12/30/16 09:10 Dose: 3 mg Ondansetron HCl (Zofran Inj) 4 mg IVP Q6H PRN PRN Reason: Nausea/Vomiting Last Admin: 12/29/16 09:13 Dose: 4 mg Temazepam (Restoril) 30 mg PO HS PRN PRN Reason: Insomnia Last Admin: 12/29/16 21:40 Dose: 30 mg Tiotropium [place] (Spiriva) 18 mcg INH RQ24 [facility] Last Admin: 12/30/16 09:02 Dose: Not Given - Labs Labs: 12/30/16 07:55 12/30/16 07:55 - Constitutional Appears: No Acute Distress, Chronically Ill - Head Exam Head Exam: NORMAL INSPECTION - Eye Exam Eye Exam: EOMI, Normal appearance - ENT Exam ENT Exam: Mucous Membranes Moist - Respiratory Exam Respiratory Exam: Rales, Wheezes - Cardiovascular Exam Cardiovascular Exam: REGULAR RHYTHM - GI/Abdominal Exam GI & Abdominal Exam: Soft, Normal Bowel Sounds - Neurological Exam Neurological Exam: Awake, CN II-XII Intact, Oriented x3 Neuro motor strength exam: Left Upper Extremity: 5, Right Upper Extremity: 5, Left Lower Extremity: 5, Right Lower Extremity: 5 - Psychiatric Exam Psychiatric exam: Anxious, Depressed - Skin Skin Exam: Normal Color, Warm Assessment and Plan - Assessment and Plan (Free Text) Assessment: COPD, Shortness of Breath, history of smoking 12/30: Today DC IV solumedrol. line mover to PO Prednisone BID, continue other respiratory medications 12/29: Today decrease solumedrol to 20 TID, continue pulmicort as well as Spiriva. Currently on Avelox, afebrile - the WBC maybe from the solumedrol being given. Procalcitonin is low. Avelox 400 mg IVPB Q24h for possible pneumonia. Follow-up Procalcitonin Duoneb 3 ml INH RQ6 [facility] instead of PRN Continue on Pulmicort 0,25 mg INH RQ12, Spiriva 18 mcg INH RQ24, Alcohol Abuse Disorder 12/30: Stable withdrawl at this time 12/29: She says less shaking today, continue PRN Ativan No active signs of withdrawal Ativan 1 mg po q3h PRN for withdrawal Normal Saline IV @100cc Insomnia 12/30: Cont Restoril 12/29: Will try restoril x 1 today - she reports still unable to sleep. Chest Pain 12/29: Cardiac enzymes negative Rule out Acute Coronary Syndrome Troponin I <0.0120, <0.0120, <0.0102 and EKGs (12/26, 16:04): normal sinus rhythm at 84 (12/26; 00:30) normal sinus rhythm at 92, left atrial enlargement. Chest X-ray: Clear lungs. No significant interval change. Continue on home medications: Norvasc 5 mg po daily, Zestril 5 mg po daily. Continue on Coreg 3.125 mg po BID and Aspirin 81 mg po daily Morphine 2 mg IVP q4 PRN for moderate pain hemoglobin a1c 5.1 triglycerides 75, cholesterol 139, LDL <30, HDL 109 Monitor History of Rectal Adenocarcinoma "Per GI, Dr. Nixon, patient was informed that rectal lesion was removed via endoscopic mucosal resection with negative margins per pathology report. Recommends surgical evaluation for wider excision where rectal lesion was to ensure complete resection to minimize risk of recurrence as there is a chance complete resection was not achieved. Patient requires close outpatient follow- up with frequent endoscopyic evaluations and sigmoidoscopy April 2017. Patient is requesting surgical evaluation. General surgery, Dr. Carey, consulted. Help appreciated. Per surgery, continue medical management. No emergent or urgent need for surgery. " Depression Lexapro 5 mg po daily Started on Remeron 7.5 mg po HS for insomnia and poor appetite Prophylaxis Heparin 5000 U SC Q12 [facility] Zofran 4 mg IVP q6h PRN for nausea Heart Healthy Diet
[2016-12-30 11:01] LABS: NEUTROPHIL 83 % (50-75); TOTAL CELLS COUNTED 100
[2016-12-30] MEDS: Moxifloxacin IV 400mg/250ml NS 250 ML IVPB SCH (13:24)
[2016-12-31] MEDS: Sodium Chloride 0.9% 1,000 ML IV SCH ×2 (01:30→13:31)
[2016-12-31] MEDS: Albuterol-Ipratrop 3 mg / 0.5 (3 ml) UD INH SCH ×4 (01:31→20:03)
[2016-12-31] MEDS: Morphine 4 MG/ML VIAL IVP PRN ×3 (02:10→12:37)
[2016-12-31 07:54] LABS: BASO % 0.1 % (0.0-2.0); EOS % 0.1 % (0.0-4.0); HEMATOCRIT 34.3 % (34.0-47.0); LYMPH # 2.2 K/uL (1.0-4.3); LYMPH % 17.9 % (20.0-40.0); MEAN CORPUSCULAR HEMOGLOBIN 32.2 pg (27.0-31.0); MEAN CORPUSCULAR HGB CONC 32.5 g/dL (33.0-37.0); MEAN PLATELET VOLUME 7.5 fL (7.2-11.7); MONO # 1.1 K/uL (0.0-0.8); NRBC % 0.1 % (0.0-2.0); RED CELL DISTRIBUTION WIDTH 16.9 % (11.5-14.5); WHITE BLOOD COUNT 12.5 K/uL (4.8-10.8)
[2016-12-31 08:02] LABS: CHLORIDE 105 mmol/L (98-107)
[2016-12-31 08:03] LABS: POTASSIUM 3.7 mmol/L (3.6-5.2); SODIUM 136 mmol/L (132-148)
[2016-12-31 08:05] LABS: ALB/GLOB RATIO 1.5 (1.0-2.1); AST/SGOT 25 U/L (14-36); BILIRUBIN,TOTAL 0.2 mg/dL (0.2-1.3); BLOOD UREA NITROGEN 20 mg/dL (7-17); CARBON DIOXIDE 25 mmol/L (22-30); GFR AFRICAN-AMERICAN > 60; TOTAL PROTEIN 5.2 g/dL (6.3-8.3)
[2016-12-31 08:06] LABS: ALKALINE PHOSPHATASE 52 U/L (38-126); ALT/SGPT 31 U/L (9-52); GLUCOSE,RANDOM 80 mg/dL (65-105)
[2016-12-31] MEDS: Budesonide 0.25 mg/2 ml Inhal Susp UD INH SCH ×2 (08:47→20:03)
[2016-12-31] MEDS: Tiotropium 18 mcg Cap For Inhalation INH SCH (08:47)
--- NOTE | 2016-12-31 09:03 | CP.PCM.PN ---
<Grace Domingo - Last Filed: 12/31/16 13:16> Subjective - Date & Time of Evaluation Date of Evaluation: 12/31/16 Time of Evaluation: 09:03 - Subjective Subjective: Patient seen and examined at bedside. Patient states her breathing has improved. She continues to have dry cough at night. Patient reports difficulty with ambulating due to weakness. She states she is tolerating diet more than last week but continues to have abdominal cramping. Patient admits to normal bowel movements. She expresses concern with being discharged from hospital as she is homeless without clothes. Following examination, medicine notified that patient had a fall when walking and hit her head. Will evaluate for bleed with CT head. Objective - Vital Signs/Intake and Output Vital Signs (last 24 hours): Temp Pulse Resp BP Pulse Ox 97.3 F L 61 20 113/69 96 12/30/16 23:05 12/31/16 07:30 12/30/16 23:05 12/30/16 23:05 12/30/16 23:05 Intake and Output: 12/31/16 12/31/16 06:59 18:59 Intake Total 1600 Output Total 300 Balance 1300 - Medications Medications: Current Medications Albuterol/Ipratropium (Duoneb 3 Mg/0.5 Mg (3 Ml) Ud) 3 ml INH RQ6 [facility] Last Admin: 12/31/16 08:47 Dose: 3 ml Amlodipine Besylate (Norvasc) 5 mg PO DAILY [facility] Last Admin: 12/30/16 09:10 Dose: 5 mg Aspirin (Ecotrin) 81 mg PO DAILY [facility] Last Admin: 12/30/16 09:10 Dose: 81 mg Budesonide (Pulmicort Respules) 0.25 mg INH RQ12 [facility] Last Admin: 12/31/16 08:47 Dose: 0.25 mg Escitalopram Oxalate (Lexapro) 5 mg PO DAILY [facility] Last Admin: 12/30/16 09:10 Dose: 5 mg Famotidine (Pepcid) 20 mg PO DAILY [facility] Last Admin: 12/30/16 09:10 Dose: 20 mg Guaifenesin/Dextromethorphan (Robitussin Dm) 10 ml PO Q4H PRN PRN Reason: Cough and congestion Last Admin: 12/28/16 10:51 Dose: 10 ml Heparin Sodium (Porcine) (Heparin) 5,000 units SC Q8 [facility] Last Admin: 12/31/16 06:19 Dose: 5,000 units Moxifloxacin HCl (Avelox Iv 400mg/250ml Ns) 250 mls @ 167 mls/hr IVPB Q24H [facility] Last Admin: 12/30/16 13:24 Dose: 167 mls/hr Lisinopril (Zestril) 5 mg PO DAILY [facility] Last Admin: 12/30/16 09:10 Dose: 5 mg Lorazepam (Ativan) 1 mg PO Q3H PRN PRN Reason: withdrawal Last Admin: 12/31/16 06:22 Dose: 1 mg Mirtazapine (Remeron) 7.5 mg PO HS [facility] Last Admin: 12/30/16 21:46 Dose: 7.5 mg Morphine Sulfate (Morphine) 3 mg IVP Q4 PRN PRN Reason: Pain, moderate (4-7) Last Admin: 12/31/16 06:22 Dose: 3 mg Ondansetron HCl (Zofran Inj) 4 mg IVP Q6H PRN PRN Reason: Nausea/Vomiting Last Admin: 12/29/16 09:13 Dose: 4 mg Prednisone (Prednisone Tab) 20 mg PO BID [facility] Last Admin: 12/30/16 17:55 Dose: 20 mg Temazepam (Restoril) 30 mg PO HS PRN PRN Reason: Insomnia Last Admin: 12/30/16 21:46 Dose: 30 mg Tiotropium [place] (Spiriva) 18 mcg INH RQ24 [facility] Last Admin: 12/31/16 08:47 Dose: 18 mcg - Labs Labs: 12/31/16 07:38 12/31/16 07:38 - Constitutional Appears: Non-toxic, No Acute Distress, Cachectic - Head Exam Head Exam: ATRAUMATIC, NORMAL INSPECTION, NORMOCEPHALIC - Eye Exam Eye Exam: EOMI, Normal appearance, PERRL - ENT Exam ENT Exam: Mucous Membranes Moist, Normal Exam - Neck Exam Neck Exam: Full ROM, Normal Inspection - Respiratory Exam Respiratory Exam: Clear to Ausculation Bilateral, NORMAL BREATHING PATTERN. absent: Rales, Rhonchi, Wheezes - Cardiovascular Exam Cardiovascular Exam: +S1, +S2. absent: Tachycardia, Murmur - GI/Abdominal Exam GI & Abdominal Exam: Soft, Tenderness, Normal Bowel Sounds Additional comments: lower abdominal tenderness to palpation. - Extremities Exam Extremities Exam: Normal Inspection. absent: Pedal Edema, Tenderness - Neurological Exam Neurological Exam: Alert, Awake, Oriented x3 - Psychiatric Exam Psychiatric exam: Normal Affect, Normal Mood - Skin Skin Exam: Intact, Normal Color, Warm Assessment and Plan - Assessment and Plan (Free Text) Assessment: Chest Pain Rule out Acute Coronary Syndrome Troponin I <0.0120, <0.0120, <0.0102 and EKGs (12/26, 16:04): normal sinus rhythm at 84 (12/26; 00:30) normal sinus rhythm at 92, left atrial enlargement. Chest X-ray: Clear lungs. No significant interval change. Continue on home medications: Norvasc 5 mg po daily, Zestril 5 mg po daily. Aspirin 81 mg po daily Morphine 2 mg IVP q4 PRN for moderate pain hemoglobin a1c 5.1 triglycerides 75, cholesterol 139, LDL <30, HDL 109 Monitor Shortness of Breath History of COPD Started on Avelox 400 mg IVPB Q24h for possible pneumonia. Follow-up Procalcitonin Started on Duoneb 3 ml INH RQ6 [facility] instead of PRN Continue on Pulmicort 0,25 mg INH RQ12, Spiriva 18 mcg INH RQ24, and Solumedrol 40 mg IVP TID Monitor Alcohol Abuse Disorder No active signs of withdrawal Ativan 1 mg po q3h PRN for withdrawal discontinue Normal Saline IV @100cc History of Rectal Adenocarcinoma Per GI, Dr. Nixon, patient was informed that rectal lesion was removed via endoscopic mucosal resection with negative margins per pathology report. Recommends surgical evaluation for wider excision where rectal lesion was to ensure complete resection to minimize risk of recurrence as there is a chance complete resection was not achieved. Patient requires close outpatient follow- up with frequent endoscopyic evaluations and sigmoidoscopy April 2017. Patient is requesting surgical evaluation. General surgery, Dr. Carey, consulted. Help appreciated. Per surgery, continue medical management. No emergent or urgent need for surgery. Start on Pepcid 20 mg po daily Start Ensure TID Depression Lexapro 5 mg po daily Started on Remeron 7.5 mg po HS for insomnia and poor appetite Insomnia Start Atarax 25 mg po HS Fall CT Head without contrast - No CT evidence of acute intracranial hemorrhage or acute territorial infarct. Prophylaxis Heparin 5000 U SC Q12 [facility] Zofran 4 mg IVP q6h PRN for nausea Heart Healthy Diet <Daren Strickland H - Last Filed: 12/31/16 13:25> Objective - Vital Signs/Intake and Output Vital Signs (last 24 hours): Temp Pulse Resp BP Pulse Ox 97.9 F 63 20 154/87 H 98 12/31/16 09:08 12/31/16 09:08 12/31/16 09:08 12/31/16 09:08 12/31/16 09:08 Intake and Output: 12/31/16 12/31/16 06:59 18:59 Intake Total 1600 Output Total 300 Balance 1300 - Medications Medications: Current Medications Albuterol/Ipratropium (Duoneb 3 Mg/0.5 Mg (3 Ml) Ud) 3 ml INH RQ6 [facility] Last Admin: 12/31/16 08:47 Dose: 3 ml Amlodipine Besylate (Norvasc) 5 mg PO DAILY [facility] Last Admin: 12/31/16 10:56 Dose: 5 mg Aspirin (Ecotrin) 81 mg PO DAILY [facility] Last Admin: 12/31/16 10:57 Dose: 81 mg Budesonide (Pulmicort Respules) 0.25 mg INH RQ12 [facility] Last Admin: 12/31/16 08:47 Dose: 0.25 mg Escitalopram Oxalate (Lexapro) 5 mg PO DAILY [facility] Last Admin: 12/31/16 11:05 Dose: 5 mg Famotidine (Pepcid) 20 mg PO DAILY [facility] Last Admin: 12/31/16 10:56 Dose: 20 mg Guaifenesin/Dextromethorphan (Robitussin Dm) 10 ml PO Q4H PRN PRN Reason: Cough and congestion Last Admin: 12/28/16 10:51 Dose: 10 ml Heparin Sodium (Porcine) (Heparin) 5,000 units SC Q8 [facility] Last Admin: 12/31/16 06:19 Dose: 5,000 units Moxifloxacin HCl (Avelox Iv 400mg/250ml Ns) 250 mls @ 167 mls/hr IVPB Q24H [facility] Last Admin: 12/30/16 13:24 Dose: 167 mls/hr Lisinopril (Zestril) 5 mg PO DAILY [facility] Last Admin: 12/31/16 10:56 Dose: 5 mg Mirtazapine (Remeron) 7.5 mg PO HS [facility] Last Admin: 12/30/16 21:46 Dose: 7.5 mg Ondansetron HCl (Zofran Inj) 4 mg IVP Q6H PRN PRN Reason: Nausea/Vomiting Last Admin: 12/29/16 09:13 Dose: 4 mg Prednisone (Prednisone Tab) 20 mg PO BID [facility] Last Admin: 12/31/16 10:56 Dose: 20 mg Temazepam (Restoril) 30 mg PO HS PRN PRN Reason: Insomnia Last Admin: 12/30/16 21:46 Dose: 30 mg Tiotropium [place] (Spiriva) 18 mcg INH RQ24 [facility] Last Admin: 12/31/16 08:47 Dose: 18 mcg - Labs Labs: 12/31/16 07:38 12/31/16 07:38 Attending/Attestation - Attestation I have personally seen and examined this patient.: Yes I have fully participated in the care of the patient.: Yes I have reviewed all pertinent clinical information, including history, physical exam and plan: Yes Notes (Text): 12/31/16 13:23 Medical attending: Patient was seen and examined by me, agree with the above note by medical tech. Earlier in the day the patient had a code*, she fell down as she was in the bathroom. Currently were pending on imaging ordered by the medical tech. The patient states that her breathing is somewhat improved from before. She's having a lot of anxiety issues, difficulty sleeping as well. The issue that worries her the most is her home living situation. The patient explains that she's having difficulty with staying with family. She tells us that she's trying to move to [place] to move in with family members there. In the previous admission she told us the same thing that she was trying to move to [place] to get the family members Thank you very much, Daren Strickland
[2016-12-31] MEDS ORDERED: Potassium Chloride 20 mEq ER Tab PO STA (09:28)
--- NOTE | 2016-12-31 10:17 | CT ---
PROCEDURE: CT HEAD WITHOUT CONTRAST. HISTORY: s/p fall COMPARISON: 07/17/2016 TECHNIQUE: Axial computed tomography images were obtained through the head/brain without intravenous contrast. Radiation dose: Total exam DLP = 695.54 mGy-cm. This CT exam was performed using one or more of the following dose reduction techniques: Automated exposure control, adjustment of the mA and/or kV according to patient size, and/or use of iterative reconstruction technique. FINDINGS: HEMORRHAGE: No intracranial hemorrhage. BRAIN: No mass effect or edema.No CT evidence of acute territorial infarct. Stable mild volume loss. VENTRICLES: Unremarkable. No hydrocephalus. CALVARIUM: Unremarkable. PARANASAL SINUSES: Unremarkable as visualized. No significant inflammatory changes. MASTOID AIR CELLS: Unremarkable as visualized. No inflammatory changes. OTHER FINDINGS: Mild soft tissue swelling in the anterior scalp. IMPRESSION: No CT evidence of acute intracranial hemorrhage or acute territorial infarct. Acute infarction may be CT occult within first 24 hours. If a focal deficit persists, consider followup CT or MRI for further evaluation. Further imaging can be obtained as per clinical indication.
[2016-12-31] MEDS ORDERED: Iohexol 240 (50 ml) PO ONE (13:00)
[2016-12-31] MEDS: Moxifloxacin IV 400mg/250ml NS 250 ML IVPB SCH (13:30)
--- NOTE | 2016-12-31 15:09 | CP.PCM.PN ---
<Beto Sosa - Last Filed: 12/31/16 15:25> Subjective - Date & Time of Evaluation Date of Evaluation: 12/31/16 Time of Evaluation: 06:55 - Subjective Subjective: Gen Surg: Dr. Alexander Patient seen and examined at bedside. Reports dry cough. States she still experiencing abdominal cramping. States she still has lower abdominal pain. Reports dysuria. Patient admits to normal bowel movements. Objective - Vital Signs/Intake and Output Vital Signs (last 24 hours): Temp Pulse Resp BP Pulse Ox 97.9 F 63 20 154/87 H 98 12/31/16 09:08 12/31/16 09:08 12/31/16 09:08 12/31/16 09:08 12/31/16 09:08 Intake and Output: 12/31/16 12/31/16 06:59 18:59 Intake Total 1600 Output Total 300 Balance 1300 - Medications Medications: Current Medications Albuterol/Ipratropium (Duoneb 3 Mg/0.5 Mg (3 Ml) Ud) 3 ml INH RQ6 [facility] Last Admin: 12/31/16 14:39 Dose: Not Given Amlodipine Besylate (Norvasc) 5 mg PO DAILY [facility] Last Admin: 12/31/16 10:56 Dose: 5 mg Aspirin (Ecotrin) 81 mg PO DAILY [facility] Last Admin: 12/31/16 10:57 Dose: 81 mg Budesonide (Pulmicort Respules) 0.25 mg INH RQ12 [facility] Last Admin: 12/31/16 08:47 Dose: 0.25 mg Escitalopram Oxalate (Lexapro) 5 mg PO DAILY [facility] Last Admin: 12/31/16 11:05 Dose: 5 mg Famotidine (Pepcid) 20 mg PO DAILY [facility] Last Admin: 12/31/16 10:56 Dose: 20 mg Guaifenesin/Dextromethorphan (Robitussin Dm) 10 ml PO Q4H PRN PRN Reason: Cough and congestion Last Admin: 12/28/16 10:51 Dose: 10 ml Heparin Sodium (Porcine) (Heparin) 5,000 units SC Q8 [facility] Last Admin: 12/31/16 06:19 Dose: 5,000 units Moxifloxacin HCl (Avelox Iv 400mg/250ml Ns) 250 mls @ 167 mls/hr IVPB Q24H [facility] Last Admin: 12/31/16 13:30 Dose: 167 mls/hr Lisinopril (Zestril) 5 mg PO DAILY [facility] Last Admin: 12/31/16 10:56 Dose: 5 mg Mirtazapine (Remeron) 7.5 mg PO HS [facility] Last Admin: 12/30/16 21:46 Dose: 7.5 mg Ondansetron HCl (Zofran Inj) 4 mg IVP Q6H PRN PRN Reason: Nausea/Vomiting Last Admin: 12/29/16 09:13 Dose: 4 mg Prednisone (Prednisone Tab) 20 mg PO BID [facility] Last Admin: 12/31/16 10:56 Dose: 20 mg Temazepam (Restoril) 30 mg PO HS PRN PRN Reason: Insomnia Last Admin: 12/30/16 21:46 Dose: 30 mg Tiotropium Benson (Spiriva) 18 mcg INH RQ24 [facility] Last Admin: 12/31/16 08:47 Dose: 18 mcg - Labs Labs: 12/31/16 07:38 12/31/16 07:38 - Constitutional Appears: Cachectic - ENT Exam ENT Exam: Mucous Membranes Moist - Respiratory Exam Respiratory Exam: NORMAL BREATHING PATTERN - Cardiovascular Exam Cardiovascular Exam: +S1, +S2 - GI/Abdominal Exam GI & Abdominal Exam: Soft, Tenderness. absent: Distended, Firm, Guarding - Neurological Exam Neurological Exam: Alert, Awake, Oriented x3 - Psychiatric Exam Psychiatric exam: Normal Mood - Skin Skin Exam: Dry, Warm Assessment and Plan - Assessment and Plan (Free Text) Assessment: 61F w/ rectal adenocarcinoma (negative margins) and lower abdominal pain - F/u CT scan -F/u urine culture - cont medical management - no emergent/urgent need for surgery -Gato Alexander <Vishal Alexander - Last Filed: 01/02/17 20:04> Objective - Vital Signs/Intake and Output Vital Signs (last 24 hours): Temp Pulse Resp BP Pulse Ox 98.1 F 77 18 102/66 96 01/02/17 15:33 01/02/17 15:33 01/02/17 15:33 01/02/17 15:33 01/02/17 15:33 - Medications Medications: Current Medications Albuterol/Ipratropium (Duoneb 3 Mg/0.5 Mg (3 Ml) Ud) 3 ml INH RQ6 [facility] Last Admin: 01/02/17 14:00 Dose: Not Given Amlodipine Besylate (Norvasc) 5 mg PO DAILY [facility] Last Admin: 01/02/17 09:17 Dose: 5 mg Aspirin (Ecotrin) 81 mg PO DAILY [facility] Last Admin: 01/02/17 09:18 Dose: 81 mg Budesonide (Pulmicort Respules) 0.25 mg INH RQ12 [facility] Last Admin: 01/02/17 09:24 Dose: Not Given Escitalopram Oxalate (Lexapro) 10 mg PO DAILY [facility] Last Admin: 01/02/17 14:06 Dose: 10 mg Famotidine (Pepcid) 20 mg PO DAILY [facility] Last Admin: 01/02/17 09:18 Dose: 20 mg Gabapentin (Neurontin) 100 mg PO TID [facility] Last Admin: 01/02/17 17:43 Dose: 100 mg Guaifenesin/Dextromethorphan (Robitussin Dm) 10 ml PO Q4H PRN PRN Reason: Cough and congestion Last Admin: 01/01/17 10:37 Dose: 10 ml Heparin Sodium (Porcine) (Heparin) 5,000 units SC Q8 [facility] Moxifloxacin HCl (Avelox Iv 400mg/250ml Ns) 250 mls @ 167 mls/hr IVPB Q24H [facility] Last Admin: 01/02/17 14:06 Dose: 167 mls/hr Lisinopril (Zestril) 5 mg PO DAILY [facility] Last Admin: 01/02/17 09:17 Dose: 5 mg Mirtazapine (Remeron) 7.5 mg PO HS [facility] Last Admin: 01/01/17 21:24 Dose: 7.5 mg Ondansetron HCl (Zofran Inj) 4 mg IVP Q6H PRN PRN Reason: Nausea/Vomiting Last Admin: 12/29/16 09:13 Dose: 4 mg Prednisone (Prednisone Tab) 20 mg PO BID [facility] Last Admin: 01/02/17 17:43 Dose: 20 mg Quetiapine Fumarate (Seroquel) 50 mg PO HS [facility] Temazepam (Restoril) 30 mg PO HS PRN PRN Reason: Insomnia Last Admin: 01/01/17 21:59 Dose: 30 mg Tiotropium Benson (Spiriva) 18 mcg INH RQ24 [facility] Last Admin: 01/02/17 10:09 Dose: 18 mcg - Labs Labs: 01/02/17 07:57 01/02/17 07:57 Attending/Attestation - Attestation I have personally seen and examined this patient.: Yes I have fully participated in the care of the patient.: Yes I have reviewed all pertinent clinical information, including history, physical exam and plan: Yes Notes (Text): 01/02/17 20:03 Pt was seen and examined at bedside on 12/31/16 Agree with above note and assessment. Pt with Abdominal llanes and S/P EMR for Rectal Cancer C/w current mx CT scan of A/P We merary f.u Plan d.w pt in detail.
[2016-12-31] MEDS ORDERED: Iohexol 350mg/ml 100 ML ONE (16:23)
--- NOTE | 2016-12-31 18:10 | CARD ---
APPROVED REPORT EKG Measurement Heart [id number] MD [id number] <Conclusion> Sinus bradycardia with short MD Otherwise normal ECG
[2017-01-01] MEDS: Albuterol-Ipratrop 3 mg / 0.5 (3 ml) UD INH SCH ×4 (01:16→19:52)
[2017-01-01 06:44] LABS: BASO % 0.2 % (0.0-2.0); EOS % 0.1 % (0.0-4.0); HEMATOCRIT 36.4 % (34.0-47.0); LYMPH # 2.2 K/uL (1.0-4.3); MEAN CELL VOLUME 100.1 fL (81.0-99.0); MEAN CORPUSCULAR HEMOGLOBIN 32.9 pg (27.0-31.0); MEAN CORPUSCULAR HGB CONC 32.9 g/dL (33.0-37.0); MEAN PLATELET VOLUME 8.1 fL (7.2-11.7); MONO # 1.1 K/uL (0.0-0.8); MONO % 8.8 % (0.0-10.0); NRBC % 0.1 % (0.0-2.0); RED CELL DISTRIBUTION WIDTH 17.6 % (11.5-14.5)
[2017-01-01] MEDS: Budesonide 0.25 mg/2 ml Inhal Susp UD INH SCH ×2 (07:25→19:52)
[2017-01-01 07:47] LABS: ALT/SGPT 87 U/L (9-52); CALCIUM 8.3 mg/dl (8.6-10.4); MAGNESIUM 2.2 mg/dL (1.6-2.3)
[2017-01-01 08:41] LABS: ALB/GLOB RATIO 1.5 (1.0-2.1); ALKALINE PHOSPHATASE 87 U/L (38-126); AST/SGOT 104 U/L (14-36); BILIRUBIN,TOTAL 0.2 mg/dL (0.2-1.3); BLOOD UREA NITROGEN 25 mg/dL (7-17); CARBON DIOXIDE 22 mmol/L (22-30); CHLORIDE 104 mmol/L (98-107); GFR AFRICAN-AMERICAN > 60; GLUCOSE,RANDOM 81 mg/dL (65-105); POTASSIUM 4.4 mmol/L (3.6-5.2); SODIUM 135 mmol/L (132-148); TOTAL PROTEIN 5.2 g/dL (6.3-8.3)
--- NOTE | 2017-01-01 09:05 | CT ---
PROCEDURE: CT Abdomen and Pelvis with contrast HISTORY: Lower abdominal pain and dysuria. COMPARISON: 07/31/2016. CT thorax including upper abdomen. TECHNIQUE: Contrast dose: 100 cc Omnipaque 350. Radiation dose: Total exam DLP = 198.61. MGy-cm. This CT exam was performed using one or more of the following dose reduction techniques: Automated exposure control, adjustment of the mA and/or kV according to patient size, and/or use of iterative reconstruction technique. FINDINGS: LOWER THORAX: Unremarkable. LIVER: Hepatomegaly. Hepatic steatosis. No intahepatic masses or ductal dilatation. GALLBLADDER AND BILE DUCTS: Unremarkable. PANCREAS: Unremarkable. No gross lesion or ductal dilatation. SPLEEN: Unremarkable. ADRENALS: Unremarkable. No mass. KIDNEYS AND URETERS: Unremarkable. No hydronephrosis. No solid mass. VASCULATURE: Unremarkable. No aortic aneurysm. BOWEL: Unremarkable. No obstruction. No gross mural thickening. Constipation without fecal impaction or obstruction. APPENDIX: Normal appendix. PERITONEUM: Unremarkable. No free fluid. No free air. LYMPH NODES: Unremarkable. No enlarged lymph nodes. BLADDER: Unremarkable. REPRODUCTIVE: Unremarkable. BONES: No acute fracture. OTHER FINDINGS: None. IMPRESSION: No acute findings related to/accounting for the clinical presentation. Concordant results (preliminary interpretation) provided by [facility]. Procedure Completed: 18:32 Preliminary ([facility]) Report: Dictated and Authenticated: 20:30 Final Interpretation: 09:00. January 01, 2017.
[2017-01-01] MEDS: Tiotropium 18 mcg Cap For Inhalation INH SCH (09:14)
--- NOTE | 2017-01-01 09:53 | CP.PCM.PN ---
<Grace Domingo - Last Filed: 01/01/17 12:58> Subjective - Date & Time of Evaluation Date of Evaluation: 01/01/17 Time of Evaluation: 09:51 - Subjective Subjective: Patient seen and examined at bedside. She is complaining of shaking due to anxiety. Patient also notes pain to lower abdomen and difficulty with urination. She denies fever and chills. Patient reports shortness of breath and cough have improved but continues to experience tightness in her chest. She denies palpitations. Patient states appetite continue to be poor but is tolerating Ensures and having normal bowel movements. Objective - Vital Signs/Intake and Output Vital Signs (last 24 hours): Temp Pulse Resp BP Pulse Ox 98.0 F 74 20 155/91 H 96 01/01/17 08:43 01/01/17 08:43 01/01/17 08:43 01/01/17 08:43 01/01/17 08:43 Intake and Output: 01/01/17 01/01/17 06:59 18:59 Intake Total 1280 Output Total 800 Balance 480 - Medications Medications: Current Medications Acetaminophen (Tylenol 325mg Tab) 650 mg PO Q6 PRN PRN Reason: Pain, Mild (1-3) Last Admin: 12/31/16 20:26 Dose: 650 mg Albuterol/Ipratropium (Duoneb 3 Mg/0.5 Mg (3 Ml) Ud) 3 ml INH RQ6 [facility] Last Admin: 01/01/17 07:25 Dose: 3 ml Amlodipine Besylate (Norvasc) 5 mg PO DAILY [facility] Last Admin: 12/31/16 10:56 Dose: 5 mg Aspirin (Ecotrin) 81 mg PO DAILY [facility] Last Admin: 12/31/16 10:57 Dose: 81 mg Budesonide (Pulmicort Respules) 0.25 mg INH RQ12 [facility] Last Admin: 01/01/17 07:25 Dose: 0.25 mg Escitalopram Oxalate (Lexapro) 5 mg PO DAILY [facility] Last Admin: 12/31/16 11:05 Dose: 5 mg Famotidine (Pepcid) 20 mg PO DAILY [facility] Last Admin: 12/31/16 10:56 Dose: 20 mg Guaifenesin/Dextromethorphan (Robitussin Dm) 10 ml PO Q4H PRN PRN Reason: Cough and congestion Last Admin: 12/28/16 10:51 Dose: 10 ml Heparin Sodium (Porcine) (Heparin) 5,000 units SC Q8 [facility] Last Admin: 12/31/16 21:10 Dose: 5,000 units Moxifloxacin HCl (Avelox Iv 400mg/250ml Ns) 250 mls @ 167 mls/hr IVPB Q24H [facility] Last Admin: 12/31/16 13:30 Dose: 167 mls/hr Lisinopril (Zestril) 5 mg PO DAILY [facility] Last Admin: 12/31/16 10:56 Dose: 5 mg Mirtazapine (Remeron) 7.5 mg PO HS [facility] Last Admin: 12/31/16 21:08 Dose: 7.5 mg Ondansetron HCl (Zofran Inj) 4 mg IVP Q6H PRN PRN Reason: Nausea/Vomiting Last Admin: 12/29/16 09:13 Dose: 4 mg Prednisone (Prednisone Tab) 20 mg PO BID [facility] Last Admin: 12/31/16 18:10 Dose: 20 mg Temazepam (Restoril) 30 mg PO HS PRN PRN Reason: Insomnia Last Admin: 12/31/16 22:09 Dose: 30 mg Tiotropium D Hanis (Spiriva) 18 mcg INH RQ24 [facility] Last Admin: 01/01/17 09:14 Dose: 18 mcg - Labs Labs: 01/01/17 06:30 01/01/17 06:49 - Constitutional Appears: Non-toxic, No Acute Distress, Cachectic - Head Exam Head Exam: NORMAL INSPECTION, NORMOCEPHALIC. absent: ATRAUMATIC Additional comments: edema to forehead - Eye Exam Eye Exam: EOMI, Normal appearance, PERRL - ENT Exam ENT Exam: Mucous Membranes Moist - Neck Exam Neck Exam: Full ROM, Normal Inspection - Respiratory Exam Respiratory Exam: Wheezes. absent: Rales, Rhonchi - Cardiovascular Exam Cardiovascular Exam: +S1, +S2. absent: Tachycardia - GI/Abdominal Exam GI & Abdominal Exam: Tenderness, Normal Bowel Sounds. absent: Distended, Firm - Extremities Exam Extremities Exam: Normal Inspection. absent: Pedal Edema, Tenderness - Neurological Exam Neurological Exam: Alert, Awake, Oriented x3 - Psychiatric Exam Psychiatric exam: Anxious - Skin Skin Exam: Intact, Normal Color, Warm Assessment and Plan - Assessment and Plan (Free Text) Assessment: Chest Pain Rule out Acute Coronary Syndrome Troponin I <0.0120, <0.0120, <0.0102 and EKGs (12/26, 16:04): normal sinus rhythm at 84 (12/26; 00:30) normal sinus rhythm at 92, left atrial enlargement. Chest X-ray: Clear lungs. No significant interval change. Continue on home medications: Norvasc 5 mg po daily, Zestril 5 mg po daily. Aspirin 81 mg po daily hemoglobin a1c 5.1 triglycerides 75, cholesterol 139, LDL <30, HDL 109 Monitor Shortness of Breath History of COPD Continue on Avelox 400 mg IVPB Q24h for possible pneumonia. Follow-up Procalcitonin Continue on Duoneb 3 ml INH RQ6 [facility] instead of PRN Continue on Pulmicort 0,25 mg INH RQ12, Spiriva 18 mcg INH RQ24, and Solumedrol 40 mg IVP TID Monitor Alcohol Abuse Disorder No active signs of withdrawal Discontinued Ativan 1 mg po q3h PRN for withdrawal History of Rectal Adenocarcinoma Per GI, Dr. Nixon, patient was informed that rectal lesion was removed via endoscopic mucosal resection with negative margins per pathology report. Recommends surgical evaluation for wider excision where rectal lesion was to ensure complete resection to minimize risk of recurrence as there is a chance complete resection was not achieved. Patient requires close outpatient follow- up with frequent endoscopyic evaluations and sigmoidoscopy April 2017. Patient is requesting surgical evaluation. General surgery, Dr. Carey, consulted. Help appreciated. Per surgery, continue medical management. No emergent or urgent need for surgery. Start on Pepcid 20 mg po daily Start Ensure TID Abdominal Pain Possibly secondary to UTI 01/01: Leukocytosis. WBC increased to 13.0 from 12.5 UA: Negative. F/u urine cx Lipase 79 Start Oxycodone ER 20 mg po q12h Transaminitis likely secondary to Tylenol/Percocet 01/01: AST/ALT 104/87 Discontinue Tylenol and Percocet Anxiety/Depression 12/22: Psychiatry, Dr. Orellana, consulted for anxiety. Help appreciated. Lexapro 5 mg po daily Started on Remeron 7.5 mg po HS for insomnia and poor appetite Insomnia Atarax 25 mg po HS as needed Fall CT Head without contrast - No CT evidence of acute intracranial hemorrhage or acute territorial infarct. Fall Risk Protocol - can only ambulate with assistance Discontinued Morphine and Ativan Prophylaxis Heparin 5000 U SC Q12 [facility] Zofran 4 mg IVP q6h PRN for nausea Heart Healthy Diet <Monica Evans V - Last Filed: 01/02/17 16:07> Objective - Vital Signs/Intake and Output Vital Signs (last 24 hours): Temp Pulse Resp BP Pulse Ox 98.1 F 77 18 102/66 96 01/02/17 15:33 01/02/17 15:33 01/02/17 15:33 01/02/17 15:33 01/02/17 15:33 Intake and Output: 01/02/17 01/02/17 06:59 18:59 Intake Total 240 Balance 240 - Medications Medications: Current Medications Albuterol/Ipratropium (Duoneb 3 Mg/0.5 Mg (3 Ml) Ud) 3 ml INH RQ6 [facility] Last Admin: 01/02/17 14:00 Dose: Not Given Amlodipine Besylate (Norvasc) 5 mg PO DAILY [facility] Last Admin: 01/02/17 09:17 Dose: 5 mg Aspirin (Ecotrin) 81 mg PO DAILY [facility] Last Admin: 01/02/17 09:18 Dose: 81 mg Budesonide (Pulmicort Respules) 0.25 mg INH RQ12 [facility] Last Admin: 01/02/17 09:24 Dose: Not Given Escitalopram Oxalate (Lexapro) 10 mg PO DAILY [facility] Last Admin: 01/02/17 14:06 Dose: 10 mg Famotidine (Pepcid) 20 mg PO DAILY [facility] Last Admin: 01/02/17 09:18 Dose: 20 mg Gabapentin (Neurontin) 100 mg PO TID [facility] Last Admin: 01/02/17 14:05 Dose: 100 mg Guaifenesin/Dextromethorphan (Robitussin Dm) 10 ml PO Q4H PRN PRN Reason: Cough and congestion Last Admin: 01/01/17 10:37 Dose: 10 ml Moxifloxacin HCl (Avelox Iv 400mg/250ml Ns) 250 mls @ 167 mls/hr IVPB Q24H [facility] Last Admin: 01/02/17 14:06 Dose: 167 mls/hr Lisinopril (Zestril) 5 mg PO DAILY [facility] Last Admin: 01/02/17 09:17 Dose: 5 mg Mirtazapine (Remeron) 7.5 mg PO HS [facility] Last Admin: 01/01/17 21:24 Dose: 7.5 mg Ondansetron HCl (Zofran Inj) 4 mg IVP Q6H PRN PRN Reason: Nausea/Vomiting Last Admin: 12/29/16 09:13 Dose: 4 mg Prednisone (Prednisone Tab) 20 mg PO BID [facility] Last Admin: 01/02/17 09:18 Dose: 20 mg Quetiapine Fumarate (Seroquel) 50 mg PO HS [facility] Temazepam (Restoril) 30 mg PO HS PRN PRN Reason: Insomnia Last Admin: 01/01/17 21:59 Dose: 30 mg Tiotropium D Hanis (Spiriva) 18 mcg INH RQ24 [facility] Last Admin: 01/02/17 10:09 Dose: 18 mcg - Labs Labs: 01/02/17 07:57 01/02/17 07:57 Attending/Attestation - Attestation I have personally seen and examined this patient.: Yes I have fully participated in the care of the patient.: Yes I have reviewed all pertinent clinical information, including history, physical exam and plan: Yes Notes (Text): this is a late computer entry for 01/01/17. Patient seen, examined, and case discussed with day-time resident. Patient seen at bedside in the morning complaining of abdominal pain. Patient has mild guarding, positive suprapubic tenderness upon examination. Patient is quite anxious and requesting for ativan and morphine. Patient ordered for repeat lipase, UA/urine culture, discontinue ativan/morphine , and started on low dose extended release narcotic medication. Psych consult ordered given patient's anxiety, alcohol abuse. Assessment/Plan Chest Pain * Rule out Acute Coronary Syndrome * Troponin I <0.0120, <0.0120, <0.0102 and * EKGs (12/26, 16:04): normal sinus rhythm at 84 (12/26; 00:30) normal sinus rhythm at 92, left atrial enlargement. * Chest X-ray (12/26/16): Clear lungs. No significant interval change. * Norvasc 5 mg PO daily * Lisinopril 5 mg po daily. * Aspirin 81 mg po daily * discontinued Morphine 2 mg IVP q4 PRN for moderate pain * Hemoglobin a1c 5.1-->patient is not diabetic * triglycerides 75, cholesterol 139, LDL <30, HDL 109 COPD exacerbation * Avelox 400 mg IVPB Q24H (active since 12/28/16) * Chest X-ray (12/26/16): Clear lungs. No significant interval change * Duoneb 3 ml INH RQ6 [facility] * Pulmicort 0.25 mg INH RQ12 * Spiriva 18 mcg INH RQ24 * Prednsione 20mg PO bid (active since 12/31/15) * Robotussin DM 10ml PO Q 4hou PRN cough and congestion * Chest X-ray (12/26/16): Clear lungs. No significant interval change. Alcohol Abuse Disorder * No active signs of withdrawal * discontinue Ativan 1 mg po q3h PRN for withdrawal * Patient is requesting ativan, but does not show signs of withdrawal. * Psych consult (Dr. Orellana) on board * Repeat lipase-->within normal limits History of Rectal Adenocarcinoma * Per GI, Dr. Nixon, patient was informed that rectal lesion was removed via endoscopic mucosal resection with negative margins per pathology report. Recommends surgical evaluation for wider excision where rectal lesion was to ensure complete resection to minimize risk of recurrence as there is a chance complete resection was not achieved. Patient requires close outpatient follow- up with frequent endoscopyic evaluations and sigmoidoscopy April 2017. * General surgery, Dr. Carey, consulted. Help appreciated. Per surgery, continue medical management. 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 * CT Head without contrast (12/31/16) - No CT evidence of acute intracranial hemorrhage or acute territorial infarct. * Fall risk protocol Prophylaxis * Heparin 5000 units SC [id number] * SCD b/l * Zofran 4 mg IVP q6h PRN for nausea * Heart Healthy Diet * Pepcid 20mh PO bid
[2017-01-01] MEDS ORDERED: Oxycodone/Acetaminophen 5/325 mg Tab PO PRN (10:04)
[2017-01-01] MEDS: guaiFENesin DM 200 mg-20 mg/10 ml UD PO PRN (10:37)
--- NOTE | 2017-01-01 11:39 | CP.PCM.PN ---
Addendum entered and electronically signed by Annie Cook DO 01/01/17 15:43: No surgical intervention at this time. Pt is cleared for discharge from a surgical standpoint. Pt can follow up w/ Dr. Carey as an outpatient to discuss future surgical options. Original Note: <Annie Cook - Last Filed: 01/01/17 11:54> Subjective - Date & Time of Evaluation Date of Evaluation: 01/01/17 Time of Evaluation: 07:30 - Subjective Subjective: General Surgery Dr. Alexander Pt S&E @bedside. Pt fell overnight when trying to use the restroom. pt c/o cramping abd pain worse in lower abdomen. pt requesting better pain control. (+) BM overnight. pt reports decreased appetite and limited mobility 2/2 pain. denies F/C, N/V, D/C. tolerating diet. Objective - Vital Signs/Intake and Output Vital Signs (last 24 hours): Temp Pulse Resp BP Pulse Ox 98.0 F 74 20 155/91 H 96 01/01/17 08:43 01/01/17 08:43 01/01/17 08:43 01/01/17 08:43 01/01/17 08:43 Intake and Output: 01/01/17 01/01/17 06:59 18:59 Intake Total 1280 Output Total 800 Balance 480 - Medications Medications: Current Medications Albuterol/Ipratropium (Duoneb 3 Mg/0.5 Mg (3 Ml) Ud) 3 ml INH RQ6 [facility] Last Admin: 01/01/17 07:25 Dose: 3 ml Amlodipine Besylate (Norvasc) 5 mg PO DAILY [facility] Last Admin: 01/01/17 10:14 Dose: 5 mg Aspirin (Ecotrin) 81 mg PO DAILY [facility] Last Admin: 01/01/17 10:14 Dose: 81 mg Budesonide (Pulmicort Respules) 0.25 mg INH RQ12 [facility] Last Admin: 01/01/17 07:25 Dose: 0.25 mg Escitalopram Oxalate (Lexapro) 5 mg PO DAILY [facility] Last Admin: 01/01/17 10:14 Dose: 5 mg Famotidine (Pepcid) 20 mg PO DAILY [facility] Last Admin: 01/01/17 10:14 Dose: 20 mg Guaifenesin/Dextromethorphan (Robitussin Dm) 10 ml PO Q4H PRN PRN Reason: Cough and congestion Last Admin: 01/01/17 10:37 Dose: 10 ml Heparin Sodium (Porcine) (Heparin) 5,000 units SC Q8 [facility] Last Admin: 12/31/16 21:10 Dose: 5,000 units Moxifloxacin HCl (Avelox Iv 400mg/250ml Ns) 250 mls @ 167 mls/hr IVPB Q24H [facility] Last Admin: 12/31/16 13:30 Dose: 167 mls/hr Ceftriaxone Sodium 1 gm/ (Sodium Chloride) 100 mls @ 200 mls/hr IVPB DAILY [facility] Lisinopril (Zestril) 5 mg PO DAILY [facility] Last Admin: 01/01/17 10:14 Dose: 5 mg Mirtazapine (Remeron) 7.5 mg PO HS [facility] Last Admin: 12/31/16 21:08 Dose: 7.5 mg Ondansetron HCl (Zofran Inj) 4 mg IVP Q6H PRN PRN Reason: Nausea/Vomiting Last Admin: 12/29/16 09:13 Dose: 4 mg Oxycodone/Acetaminophen (Percocet 5/325 Mg Tab) 1 tab PO Q4H PRN PRN Reason: Pain, moderate (4-7) Stop: 01/04/17 10:05 Last Admin: 01/01/17 10:25 Dose: 1 tab Prednisone (Prednisone Tab) 20 mg PO BID [facility] Last Admin: 01/01/17 10:14 Dose: 20 mg Temazepam (Restoril) 30 mg PO HS PRN PRN Reason: Insomnia Last Admin: 12/31/16 22:09 Dose: 30 mg Tiotropium [place] (Spiriva) 18 mcg INH RQ24 [facility] Last Admin: 01/01/17 09:14 Dose: 18 mcg - Labs Labs: 01/01/17 06:30 01/01/17 06:49 - Constitutional Appears: Non-toxic, No Acute Distress, Agitated - Head Exam Head Exam: NORMOCEPHALIC. absent: ATRAUMATIC (hematoma and ecchymosis present over L frontotemporal area) - Eye Exam Eye Exam: Normal appearance Pupil Exam: NORMAL ACCOMODATION - ENT Exam ENT Exam: Mucous Membranes Moist - Neck Exam Neck Exam: Normal Inspection - Respiratory Exam Respiratory Exam: NORMAL BREATHING PATTERN - Cardiovascular Exam Cardiovascular Exam: REGULAR RHYTHM, +S1, +S2 - GI/Abdominal Exam GI & Abdominal Exam: Soft, Tenderness (diffuse TTP; negative exam w/ distraction ), Normal Bowel Sounds. absent: Distended, Firm, Guarding, Rigid, Mass, Rebound - Extremities Exam Extremities Exam: Normal Capillary Refill, Normal Inspection - Neurological Exam Neurological Exam: Alert, Awake, Oriented x3 - Psychiatric Exam Psychiatric exam: Anxious - Skin Skin Exam: Dry, Intact, Normal Color, Warm Assessment and Plan - Assessment and Plan (Free Text) Assessment: 61 F w/ rectal adenocarcinoma (negative margins) and lower abdominal pain - CT scan negative for acute pathology - F/u UCx - cont medical management - no emergent/urgent need for surgery - f/u w/ Dr. Alexander for further recs Annie Cook DO PGY1 <Vishal Alexander - Last Filed: 01/02/17 20:13> Objective - Vital Signs/Intake and Output Vital Signs (last 24 hours): Temp Pulse Resp BP Pulse Ox 98.1 F 77 18 102/66 96 01/02/17 15:33 01/02/17 15:33 01/02/17 15:33 01/02/17 15:33 01/02/17 15:33 - Medications Medications: Current Medications Albuterol/Ipratropium (Duoneb 3 Mg/0.5 Mg (3 Ml) Ud) 3 ml INH RQ6 [facility] Last Admin: 01/02/17 20:02 Dose: 3 ml Amlodipine Besylate (Norvasc) 5 mg PO DAILY [facility] Last Admin: 01/02/17 09:17 Dose: 5 mg Aspirin (Ecotrin) 81 mg PO DAILY [facility] Last Admin: 01/02/17 09:18 Dose: 81 mg Budesonide (Pulmicort Respules) 0.25 mg INH RQ12 [facility] Last Admin: 01/02/17 20:02 Dose: 0.25 mg Escitalopram Oxalate (Lexapro) 10 mg PO DAILY [facility] Last Admin: 01/02/17 14:06 Dose: 10 mg Famotidine (Pepcid) 20 mg PO DAILY [facility] Last Admin: 01/02/17 09:18 Dose: 20 mg Gabapentin (Neurontin) 100 mg PO TID [facility] Last Admin: 01/02/17 17:43 Dose: 100 mg Guaifenesin/Dextromethorphan (Robitussin Dm) 10 ml PO Q4H PRN PRN Reason: Cough and congestion Last Admin: 01/01/17 10:37 Dose: 10 ml Heparin Sodium (Porcine) (Heparin) 5,000 units SC Q8 [facility] Moxifloxacin HCl (Avelox Iv 400mg/250ml Ns) 250 mls @ 167 mls/hr IVPB Q24H [facility] Last Admin: 01/02/17 14:06 Dose: 167 mls/hr Lisinopril (Zestril) 5 mg PO DAILY [facility] Last Admin: 01/02/17 09:17 Dose: 5 mg Mirtazapine (Remeron) 7.5 mg PO HS [facility] Last Admin: 01/01/17 21:24 Dose: 7.5 mg Ondansetron HCl (Zofran Inj) 4 mg IVP Q6H PRN PRN Reason: Nausea/Vomiting Last Admin: 12/29/16 09:13 Dose: 4 mg Prednisone (Prednisone Tab) 20 mg PO BID [facility] Last Admin: 01/02/17 17:43 Dose: 20 mg Quetiapine Fumarate (Seroquel) 50 mg PO HS [facility] Temazepam (Restoril) 30 mg PO HS PRN PRN Reason: Insomnia Last Admin: 01/01/17 21:59 Dose: 30 mg Tiotropium [place] (Spiriva) 18 mcg INH RQ24 [facility] Last Admin: 01/02/17 10:09 Dose: 18 mcg - Labs Labs: 01/02/17 07:57 01/02/17 07:57 Attending/Attestation - Attestation I have personally seen and examined this patient.: Yes I have fully participated in the care of the patient.: Yes I have reviewed all pertinent clinical information, including history, physical exam and plan: Yes Notes (Text): 01/02/17 20:12 Pt was seen and examined at bedside on 01/01/17 Agree with above note and assessment. CT scan of A.P is unremarkable DC plan No surgical intervention is required at present Plan d.w pt in detail.
[2017-01-01 11:50] LABS: URINE BILIRUBIN NEGATIVE (NEGATIVE); URINE BLOOD NEGATIVE (NEGATIVE); URINE COLOR Straw (YELLOW); URINE GLUCOSE (UA) NORMAL (Normal); URINE KETONE NEGATIVE (NEGATIVE); URINE LEUKOCYTE ESTERASE NEG Leu/uL (Negative); URINE PROTEIN NEGATIVE (NEGATIVE); URINE UROBILINOGEN NORMAL mg/dL (0.2-1.0)
[2017-01-01] MEDS: Moxifloxacin IV 400mg/250ml NS 250 ML IVPB SCH (13:49)
[2017-01-01] MEDS ORDERED: Sodium Chloride 0.9% 250 ML IV ONE (16:22)
[2017-01-01] MEDS: oxyCODONE 20 mg ER Tab (oxyCONTIN) PO SCH (21:35)
[2017-01-02] MEDS: Albuterol-Ipratrop 3 mg / 0.5 (3 ml) UD INH SCH ×4 (01:45→20:02)
[2017-01-02 08:11] LABS: BASO % 0.3 % (0.0-2.0); EOS # 0.1 K/uL (0.0-0.7); EOS % 0.4 % (0.0-4.0); HEMATOCRIT 33.9 % (34.0-47.0); LYMPH # 2.6 K/uL (1.0-4.3); LYMPH % 18.4 % (20.0-40.0); MEAN CELL VOLUME 98.9 fL (81.0-99.0); MEAN CORPUSCULAR HGB CONC 32.4 g/dL (33.0-37.0); MEAN PLATELET VOLUME 7.4 fL (7.2-11.7); MONO # 1.3 K/uL (0.0-0.8); MONO % 9.1 % (0.0-10.0); NRBC % 0.1 % (0.0-2.0); RED CELL DISTRIBUTION WIDTH 17.8 % (11.5-14.5); WHITE BLOOD COUNT 14.4 K/uL (4.8-10.8)
[2017-01-02 08:22] LABS: CHLORIDE 102 mmol/L (98-107); SODIUM 135 mmol/L (132-148)
[2017-01-02 08:23] LABS: POTASSIUM 4.2 mmol/L (3.6-5.2)
[2017-01-02 08:25] LABS: ALB/GLOB RATIO 1.4 (1.0-2.1); ALKALINE PHOSPHATASE 62 U/L (38-126); AST/SGOT 58 U/L (14-36); BILIRUBIN,TOTAL 0.2 mg/dL (0.2-1.3); BLOOD UREA NITROGEN 26 mg/dL (7-17); CARBON DIOXIDE 25 mmol/L (22-30); GFR AFRICAN-AMERICAN > 60; GLUCOSE,RANDOM 74 mg/dL (65-105); TOTAL PROTEIN 5.5 g/dL (6.3-8.3)
[2017-01-02 08:26] LABS: ALT/SGPT 86 U/L (9-52); CALCIUM 8.7 mg/dl (8.6-10.4); MAGNESIUM 2.1 mg/dL (1.6-2.3)
[2017-01-02] MEDS: oxyCODONE 20 mg ER Tab (oxyCONTIN) PO SCH (09:17)
[2017-01-02] MEDS: Budesonide 0.25 mg/2 ml Inhal Susp UD INH SCH ×2 (09:24→20:02)
[2017-01-02] MEDS: Tiotropium 18 mcg Cap For Inhalation INH SCH ×2 (09:25→10:09)
--- NOTE | 2017-01-02 12:53 | PCM.PSYCH ---
Initial Psychiatric Evaluation - Initial Psychiatric Evaluation Type of Admission: Voluntary Legal Status: Capacity Chief Complaint (in patient's own words): "Anxiety" History of Present Illness and Precipitating Events: The pt is seen, case discussed, chart reviewed. 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 She reports depressive sxs and anxiety. She blames her adult daughter of using drugs and making her lose her apt and job. She claims she is now homeless and wants to go to [place] where she came from No SI but feels very down and at times hopeless. Used alcohol once recently but has alcoholism in the past. Denies drug use No AVH or del. Past psych hx: Alcohol Medical hx: HTN, asthma, pain syndrome Current Medications: Active Medications Generic Name Dose Route Start Last Admin Trade Name Freq PRN Reason Stop Dose Admin Albuterol/Ipratropium 3 ml 12/27/16 14:00 01/02/17 09:24 Duoneb 3 Mg/0.5 Mg (3 Ml) Ud INH 3 ml RQ6 [facility] Administration Amlodipine Besylate 5 mg 12/27/16 10:00 01/02/17 09:17 Norvasc PO 5 mg DAILY [facility] Administration Aspirin 81 mg 12/27/16 10:00 01/02/17 09:18 Ecotrin PO 81 mg DAILY [facility] Administration Budesonide 0.25 mg 12/26/16 20:00 01/02/17 09:24 Pulmicort Respules INH Not Given RQ12 [facility] Escitalopram Oxalate 5 mg 12/27/16 10:00 01/02/17 09:17 Lexapro PO 5 mg DAILY [facility] Administration Famotidine 20 mg 12/28/16 10:00 01/02/17 09:18 Pepcid PO 20 mg DAILY [facility] Administration Guaifenesin/Dextromethorphan 10 ml 12/27/16 12:53 01/01/17 10:37 Robitussin Dm PO 10 ml Q4H PRN Administration Cough and congestion Heparin Sodium (Porcine) 5,000 units 12/30/16 15:45 01/02/17 05:33 Heparin SC 5,000 units Q8 [facility] Administration Moxifloxacin HCl 250 mls @ 167 mls/hr 12/28/16 14:00 01/01/17 13:49 Avelox Iv 400mg/250ml Ns IVPB 167 mls/hr Q24H [facility] Administration Ceftriaxone Sodium 1 gm/ 100 mls @ 200 mls/hr 01/02/17 10:00 01/02/17 09:18 Sodium Chloride IVPB 200 mls/hr DAILY [facility] Administration Lisinopril 5 mg 12/27/16 10:00 01/02/17 09:17 Zestril PO 5 mg DAILY [facility] Administration Mirtazapine 7.5 mg 12/26/16 22:00 01/01/17 21:24 Remeron PO 7.5 mg HS [facility] Administration Ondansetron HCl 4 mg 12/26/16 19:45 12/29/16 09:13 Zofran Inj IVP 4 mg Q6H PRN Administration Nausea/Vomiting Oxycodone HCl 20 mg 01/01/17 22:00 01/02/17 09:17 Oxycontin Extended Release Tab PO 20 mg Q12 [facility] Administration Prednisone 20 mg 12/30/16 10:30 01/02/17 09:18 Prednisone Tab PO 20 mg BID [facility] Administration Temazepam 30 mg 12/29/16 09:28 01/01/17 21:59 Restoril PO 30 mg HS PRN Administration Insomnia Tiotropium [place] 18 mcg 12/27/16 08:00 01/02/17 10:09 Spiriva INH 18 mcg RQ24 [facility] Administration Past Psychiatric History - Past Psychiatric History Previous Treatment History: None Pertinent Medical Hx (Current Medical&Sleep Prob, Allergies): Allergies Allergy/AdvReac Type Severity Reaction Status Date / Time pantoprazole sodium Allergy RASH Verified 11/04/16 09:40 [From Protonix] Lisinopril [Zestril] 5 mg PO DAILY #0 tab 07/24/16 amLODIPine [Norvasc] 5 mg PO DAILY #0 tab 07/24/16 Acetaminophen/Oxycodone Hydr [Percocet 10/325 mg Tab] 1 tab PO Q6H PRN 10/17/16 Albuterol HFA [Ventolin HFA 90 mcg/actuation (8 g)] 0.09 mg IH PRN PRN 10/17/16 Albuterol/Ipratropium [Duoneb 3 mg/0.5 mg (3 ml) UD] 3 ml INH RQ6 neb 11/09/16 Budesonide [Pulmicort Respules] 0.5 mg INH RQ12 neb 11/09/16 Escitalopram [Lexapro] 5 mg PO DAILY tab 11/09/16 Ferrous Sulfate [Feosol] 325 mg PO BID tab 11/09/16 Gabapentin [Neurontin] 300 mg PO TID cap 11/09/16 Lisinopril [Zestril] 5 mg PO DAILY tab 11/09/16 Polyethylene Glycol 3350 [Miralax] 17 gm PO DAILY packet 11/09/16 QUEtiapine [SEROquel] 150 mg PO HS tab 11/09/16 oxyCODONE/Acetaminophen [Percocet 5/325 mg Tab] 2 tab PO Q6H PRN #0 tab predniSONE [predniSONE Tab] 20 mg PO DAILY tab 11/09/16 Review of Systems - Psychiatric Psychiatric: Abnormal Sleep Pattern, Anhedonia, Anxiety, Depression, Difficulty Concentrating. absent: Homicidal Ideation, Suicidal Ideation Mental Status Examination - Personal Presentation Personal Presentation: Looks older than stated age - Affect Affect: Constricted - Reliability in Providing Information Reliability in Providing Information: Good - Speech Speech: Organized - Mood Mood: Depressed, Anxious - Formal Thought Process Formal Thought Process: No Impairment - Cognitive Functions Orientation: Person, Place, Situation, Time Sensorium: Alert Estimate of Intelligence: Average Judgement: Intact, as evidence by: Insight regarding need for hospitalization Memory: Recent intact, as evidence by: Ability to recall events of the day, Remote intact, as evidenced by: Abilit to recall sig. life events - Risk Risk: Diminished functioning - Strength & Assets Inventory Strength & Assets Inventory: Cooperative - Limitations Limitations: Living alone DSM 5 DX - DSM 5 DSM 5 Diagnosis: Major depressive d/o - single severe CHRIS Alcohol use d/o - in remission - Recommended/Plan of Treatment Treatment Recommendations and Plan of Treatment: Lexapro for depression Gabapentin for anxiety Seroquel for insomnia Support and psychoed 32 min
--- NOTE | 2017-01-02 13:52 | CP.PCM.PN ---
<Grace Domingo - Last Filed: 01/02/17 13:49> Subjective - Date & Time of Evaluation Date of Evaluation: 01/02/17 Time of Evaluation: 13:49 - Subjective Subjective: Patient seen and examined at bedside. Per nursing, no acute events overnight. Patient states her pain is well controlled on Oxycodone extended release. She denies abdominal pain. Patient also states her breathing is improved but continues to feel tightness in her chest. She is notably warm and diaphoretic on examination. Patient reports normal bowel movements and no difficulty with urination. Objective - Vital Signs/Intake and Output Vital Signs (last 24 hours): Temp Pulse Resp BP Pulse Ox 38.7 F L 79 20 165/88 H 100 01/02/17 08:23 01/02/17 08:23 01/02/17 08:23 01/02/17 08:23 01/02/17 08:23 Intake and Output: 01/02/17 01/02/17 06:59 18:59 Intake Total 240 Balance 240 - Medications Medications: Current Medications Albuterol/Ipratropium (Duoneb 3 Mg/0.5 Mg (3 Ml) Ud) 3 ml INH RQ6 [facility] Last Admin: 01/02/17 09:24 Dose: 3 ml Amlodipine Besylate (Norvasc) 5 mg PO DAILY [facility] Last Admin: 01/02/17 09:17 Dose: 5 mg Aspirin (Ecotrin) 81 mg PO DAILY [facility] Last Admin: 01/02/17 09:18 Dose: 81 mg Budesonide (Pulmicort Respules) 0.25 mg INH RQ12 [facility] Last Admin: 01/02/17 09:24 Dose: Not Given Escitalopram Oxalate (Lexapro) 10 mg PO DAILY [facility] Famotidine (Pepcid) 20 mg PO DAILY [facility] Last Admin: 01/02/17 09:18 Dose: 20 mg Gabapentin (Neurontin) 100 mg PO TID [facility] Guaifenesin/Dextromethorphan (Robitussin Dm) 10 ml PO Q4H PRN PRN Reason: Cough and congestion Last Admin: 01/01/17 10:37 Dose: 10 ml Heparin Sodium (Porcine) (Heparin) 5,000 units SC Q8 [facility] Last Admin: 01/02/17 05:33 Dose: 5,000 units Moxifloxacin HCl (Avelox Iv 400mg/250ml Ns) 250 mls @ 167 mls/hr IVPB Q24H [facility] Last Admin: 01/01/17 13:49 Dose: 167 mls/hr Lisinopril (Zestril) 5 mg PO DAILY [facility] Last Admin: 01/02/17 09:17 Dose: 5 mg Mirtazapine (Remeron) 7.5 mg PO HS [facility] Last Admin: 01/01/17 21:24 Dose: 7.5 mg Ondansetron HCl (Zofran Inj) 4 mg IVP Q6H PRN PRN Reason: Nausea/Vomiting Last Admin: 12/29/16 09:13 Dose: 4 mg Prednisone (Prednisone Tab) 20 mg PO BID [facility] Last Admin: 01/02/17 09:18 Dose: 20 mg Quetiapine Fumarate (Seroquel) 50 mg PO HS [facility] Temazepam (Restoril) 30 mg PO HS PRN PRN Reason: Insomnia Last Admin: 01/01/17 21:59 Dose: 30 mg Tiotropium Gay (Spiriva) 18 mcg INH RQ24 [facility] Last Admin: 01/02/17 10:09 Dose: 18 mcg - Labs Labs: 01/02/17 07:57 01/02/17 07:57 - Constitutional Appears: Non-toxic, No Acute Distress, Cachectic, Other (diaphoretic ) - Head Exam Head Exam: ATRAUMATIC, NORMAL INSPECTION, NORMOCEPHALIC - ENT Exam ENT Exam: Mucous Membranes Moist - Neck Exam Neck Exam: Full ROM, Normal Inspection - Respiratory Exam Respiratory Exam: Wheezes, NORMAL BREATHING PATTERN Additional comments: expiratory wheezing present - Cardiovascular Exam Cardiovascular Exam: +S1, +S2. absent: Tachycardia - GI/Abdominal Exam GI & Abdominal Exam: Soft, Tenderness, Normal Bowel Sounds Additional comments: mid-abdominal tenderness to palpation - Extremities Exam Extremities Exam: Normal Inspection. absent: Pedal Edema, Tenderness - Neurological Exam Neurological Exam: Alert, Awake, Oriented x3 - Psychiatric Exam Psychiatric exam: Normal Affect, Normal Mood - Skin Skin Exam: Diaphoretic, Intact, Normal Color, Warm Assessment and Plan - Assessment and Plan (Free Text) Assessment: Chest Pain Rule out Acute Coronary Syndrome Troponin I <0.0120, <0.0120, <0.0102 and EKGs (12/26, 16:04): normal sinus rhythm at 84 (12/26; 00:30) normal sinus rhythm at 92, left atrial enlargement. Chest X-ray: Clear lungs. No significant interval change. Continue on home medications: Norvasc 5 mg po daily, Zestril 5 mg po daily. Aspirin 81 mg po daily hemoglobin a1c 5.1 triglycerides 75, cholesterol 139, LDL <30, HDL 109 Monitor Shortness of Breath History of COPD f/u CT Chest without contrast to rule out pneumonia f/u ESR and CRP Continue on Avelox 400 mg IVPB Q24h for possible pneumonia. Follow-up Procalcitonin Continue on Duoneb 3 ml INH RQ6 [facility] instead of PRN Continue on Pulmicort 0,25 mg INH RQ12, Spiriva 18 mcg INH RQ24, and Solumedrol 40 mg IVP TID Monitor Diaphoresis f/u CRP, ESR f/u CT Chest as above to rule out pneumonia f/u Blood culture Alcohol Abuse Disorder No active signs of withdrawal History of Rectal Adenocarcinoma Per GI, Dr. Nixon, patient was informed that rectal lesion was removed via endoscopic mucosal resection with negative margins per pathology report. Recommends surgical evaluation for wider excision where rectal lesion was to ensure complete resection to minimize risk of recurrence as there is a chance complete resection was not achieved. Patient requires close outpatient follow- up with frequent endoscopyic evaluations and sigmoidoscopy April 2017. Patient is requesting surgical evaluation. General surgery, Dr. Carey, consulted. Help appreciated. Per surgery, continue medical management. No emergent or urgent need for surgery. Start on Pepcid 20 mg po daily Start Ensure TID Abdominal Pain CT Abdomen with contrast: abdominal hernia, palpable. 01/01: Leukocytosis. WBC increased to 14.4 UA: Negative. Urine culture: No growth Lipase 79 Start Oxycodone ER 20 mg po q12h Transaminitis likely secondary to Tylenol/Percocet 01/02: Improved, AST/ALT: 58/86 01/01: AST/ALT 104/87 Discontinue Tylenol and Percocet Anxiety/Depression 12/22: Psychiatry, Dr. Orellana, consulted for anxiety. Help appreciated. Will follow-up recommendations Started on Seroquel 50 mg po HS, Restoril 30 mg po HS Continued on Lexapro 5 mg po daily Continued on on Remeron 7.5 mg po HS for insomnia and poor appetite Insomnia Continued on Remeron. Fall CT Head without contrast - No CT evidence of acute intracranial hemorrhage or acute territorial infarct. Fall Risk Protocol - can only ambulate with assistance Discontinued Morphine and Ativan Prophylaxis Heparin 5000 U SC Q12 [facility] Zofran 4 mg IVP q6h PRN for nausea Heart Healthy Diet PT/OT <Jake Evansia V - Last Filed: 01/02/17 16:21> Objective - Vital Signs/Intake and Output Vital Signs (last 24 hours): Temp Pulse Resp BP Pulse Ox 98.1 F 77 18 102/66 96 01/02/17 15:33 01/02/17 15:33 01/02/17 15:33 01/02/17 15:33 01/02/17 15:33 Intake and Output: 01/02/17 01/02/17 06:59 18:59 Intake Total 240 Balance 240 - Medications Medications: Current Medications Albuterol/Ipratropium (Duoneb 3 Mg/0.5 Mg (3 Ml) Ud) 3 ml INH RQ6 [facility] Last Admin: 01/02/17 14:00 Dose: Not Given Amlodipine Besylate (Norvasc) 5 mg PO DAILY [facility] Last Admin: 01/02/17 09:17 Dose: 5 mg Aspirin (Ecotrin) 81 mg PO DAILY [facility] Last Admin: 01/02/17 09:18 Dose: 81 mg Budesonide (Pulmicort Respules) 0.25 mg INH RQ12 [facility] Last Admin: 01/02/17 09:24 Dose: Not Given Escitalopram Oxalate (Lexapro) 10 mg PO DAILY [facility] Last Admin: 01/02/17 14:06 Dose: 10 mg Famotidine (Pepcid) 20 mg PO DAILY [facility] Last Admin: 01/02/17 09:18 Dose: 20 mg Gabapentin (Neurontin) 100 mg PO TID [facility] Last Admin: 01/02/17 14:05 Dose: 100 mg Guaifenesin/Dextromethorphan (Robitussin Dm) 10 ml PO Q4H PRN PRN Reason: Cough and congestion Last Admin: 01/01/17 10:37 Dose: 10 ml Moxifloxacin HCl (Avelox Iv 400mg/250ml Ns) 250 mls @ 167 mls/hr IVPB Q24H [facility] Last Admin: 01/02/17 14:06 Dose: 167 mls/hr Lisinopril (Zestril) 5 mg PO DAILY [facility] Last Admin: 01/02/17 09:17 Dose: 5 mg Mirtazapine (Remeron) 7.5 mg PO HS [facility] Last Admin: 01/01/17 21:24 Dose: 7.5 mg Ondansetron HCl (Zofran Inj) 4 mg IVP Q6H PRN PRN Reason: Nausea/Vomiting Last Admin: 12/29/16 09:13 Dose: 4 mg Prednisone (Prednisone Tab) 20 mg PO BID [facility] Last Admin: 01/02/17 09:18 Dose: 20 mg Quetiapine Fumarate (Seroquel) 50 mg PO HS [facility] Temazepam (Restoril) 30 mg PO HS PRN PRN Reason: Insomnia Last Admin: 01/01/17 21:59 Dose: 30 mg Tiotropium Gay (Spiriva) 18 mcg INH RQ24 [facility] Last Admin: 01/02/17 10:09 Dose: 18 mcg - Labs Labs: 01/02/17 07:57 01/02/17 07:57 Attending/Attestation - Attestation I have personally seen and examined this patient.: Yes I have fully participated in the care of the patient.: Yes I have reviewed all pertinent clinical information, including history, physical exam and plan: Yes Notes (Text): Patient seen, examined, and case discussed with day-time resident. Patient seen at bedside this morning. Patient appears too comfortable with extended release oxycodone. Will discontinue today. Lipase is normal. UA and urine culture show no growth. Patient is reporting sweats and is sweaty on exam. Patient ordered for CT Chest w/o contrast today. Patient has persistent leukocytosis but is currently on PO steroids. Blood cultures ordered today. Urine culture negative from yesterday. Discussed with psych, patient increased dose of Lexapro and Seroquel. Assessment/Plan Chest Pain * Rule out Acute Coronary Syndrome * Troponin I <0.0120, <0.0120, <0.0102 and * EKGs (12/26, 16:04): normal sinus rhythm at 84 (12/26; 00:30) normal sinus rhythm at 92, left atrial enlargement. * Chest X-ray (12/26/16): Clear lungs. No significant interval change. * Norvasc 5 mg PO daily * Lisinopril 5 mg po daily. * Aspirin 81 mg po daily * discontinued Morphine 2 mg IVP q4 PRN for moderate pain * Hemoglobin a1c 5.1-->patient is not diabetic * triglycerides 75, cholesterol 139, LDL <30, HDL 109 COPD exacerbation * Avelox 400 mg IVPB Q24H (active since 12/28/16) * Chest X-ray (12/26/16): Clear lungs. No significant interval change * Duoneb 3 ml INH RQ6 [facility] * Pulmicort 0.25 mg INH RQ12 * Spiriva 18 mcg INH RQ24 * Prednsione 20mg PO bid (active since 12/31/15) * Robotussin DM 10ml PO Q 4hou PRN cough and congestion * CT Chest (01/02/17): gross stable CT appearance of the chest with multiple tiny calcified and noncalcified pulmonary nodules. Focus of probable scarring within the inferior aspect of the right upper lobe. Centrilobular emphysema Leukocytosis * Patient is undergoing Prednisone taper * Urine culture is negative, CT chest negative for pneumonia * Ordered for repeat blood cultures * Order for procalcitonin, ESR, CR * Patient is on IV abx for cover for community acquired pneumoniaP Alcohol Abuse Disorder * No active signs of withdrawal * discontinue Ativan 1 mg po q3h PRN for withdrawal * Patient is requesting ativan, but does not show signs of withdrawal. * Psych consult (Dr. Orellana) on board * Repeat lipase-->within normal limits * Gabapentin 100mg PO tid History of Rectal Adenocarcinoma * Per GI, Dr. Nixon, patient was informed that rectal lesion was removed via endoscopic mucosal resection with negative margins per pathology report. Recommends surgical evaluation for wider excision where rectal lesion was to ensure complete resection to minimize risk of recurrence as there is a chance complete resection was not achieved. Patient requires close outpatient follow- up with frequent endoscopyic evaluations and sigmoidoscopy April 2017. * CT Abdomen/Pelvis: no acute findings related to/accounting for the clinical presentation * General surgery, Dr. Carey, consulted. Help appreciated. Per surgery, continue medical management. 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 * CT Head without contrast (12/31/16) - No CT evidence of acute intracranial hemorrhage or acute territorial infarct. * Fall risk protocol * will need to work with physical therapy Prophylaxis * Heparin 5000 units SC [id number] * SCD b/l * Zofran 4 mg IVP q6h PRN for nausea * Heart Healthy Diet * Pepcid 20mh PO bid
[2017-01-02] MEDS: Moxifloxacin IV 400mg/250ml NS 250 ML IVPB SCH (14:06)
--- NOTE | 2017-01-02 15:52 | CT ---
CT chest without IV contrast Indication: Chest x-ray performed 11/04/16 Technique: Contiguous axial images were obtained through the chest without intravenous contrast enhancement. Sagittal and coronal reconstructions were generated and reviewed. This CT exam was performed using 1 or more of the falling dose reduction techniques: Automated exposure control, adjustment of the MAA and/or kV according to patient size, and/or use of iterative reconstruction technique. Radiation dose (DLP): 150.97 MGy-cm. Comparison: Chest x-ray performed 11/04/16 Findings: Visualized portions of the inferior thyroid gland appear grossly unremarkable. The mediastinal and hilar vascular structures appear within normal limits. The heart appears within normal limits of size. Atherosclerotic calcifications. Centrilobular emphysema. Scattered regions of scarring or atelectasis. Stable appearing right lower lobe irregular nodular density within the superior aspect of the right upper lobe (for example coronal image 62, axial image 59) with adjacent retraction of the major fissure ; this likely reflects scarring. No pleural effusion. No pneumothorax. Numerous bilateral calcified granuloma measuring no greater than 5 mm. Again seen are several scattered noncalcified tiny nodules measuring less than 4 mm, nonspecific. Limited visualization of the noncontrast upper abdomen appears grossly unremarkable. No acute osseous abnormality is detected. Impression: Grossly stable CT appearance of the chest with multiple tiny calcified and noncalcified pulmonary nodules as above. Focus of probable scarring within the inferior aspect of the right upper lobe. Centrilobular emphysema.
[2017-01-03] MEDS: Albuterol-Ipratrop 3 mg / 0.5 (3 ml) UD INH SCH ×4 (01:54→20:03)
[2017-01-03] MEDS ORDERED: oxyCODONE 20 mg ER Tab (oxyCONTIN) PO STA (05:52)
[2017-01-03 07:21] LABS: BASO % 0.1 % (0.0-2.0); EOS % 0.1 % (0.0-4.0); HEMATOCRIT 35.5 % (34.0-47.0); LYMPH # 2.2 K/uL (1.0-4.3); MEAN CELL VOLUME 99.7 fL (81.0-99.0); MEAN CORPUSCULAR HEMOGLOBIN 32.4 pg (27.0-31.0); MEAN CORPUSCULAR HGB CONC 32.5 g/dL (33.0-37.0); MEAN PLATELET VOLUME 7.5 fL (7.2-11.7); MONO # 1.2 K/uL (0.0-0.8); NRBC % 0.1 % (0.0-2.0); RED CELL DISTRIBUTION WIDTH 17.9 % (11.5-14.5); WHITE BLOOD COUNT 12.4 K/uL (4.8-10.8)
[2017-01-03 08:04] LABS: CHLORIDE 100 mmol/L (98-107); POTASSIUM 4.2 mmol/L (3.6-5.2); SODIUM 136 mmol/L (132-148)
[2017-01-03 08:06] LABS: AST/SGOT 19 U/L (14-36); BILIRUBIN,TOTAL 0.5 mg/dL (0.2-1.3); CARBON DIOXIDE 25 mmol/L (22-30); GFR AFRICAN-AMERICAN > 60
[2017-01-03 08:07] LABS: ALB/GLOB RATIO 1.8 (1.0-2.1); ALKALINE PHOSPHATASE 53 U/L (38-126); ALT/SGPT 65 U/L (9-52); BLOOD UREA NITROGEN 25 mg/dL (7-17); CALCIUM 8.3 mg/dl (8.6-10.4); GLUCOSE,RANDOM 71 mg/dL (65-105); MAGNESIUM 2.3 mg/dL (1.6-2.3); TOTAL PROTEIN 5.5 g/dL (6.3-8.3)
[2017-01-03] MEDS: Budesonide 0.25 mg/2 ml Inhal Susp UD INH SCH ×2 (08:53→20:03)
[2017-01-03] MEDS: Tiotropium 18 mcg Cap For Inhalation INH SCH (08:53)
--- NOTE | 2017-01-03 10:37 | CP.PCM.PN ---
<Grace Domingo - Last Filed: 01/03/17 10:52> Subjective - Date & Time of Evaluation Date of Evaluation: 01/03/17 Time of Evaluation: 10:32 - Subjective Subjective: Patient seen and examined at bedside. Patient complaining of lumbar and sacral pain to the left side. She states she was able to sleep well after receiving sleeping aid. Patient continues to have tightness in her chest. She states her breathing has improved. Patient denies constipation or difficult with urination. Plan for PT to work more with patient. Objective - Vital Signs/Intake and Output Vital Signs (last 24 hours): Temp Pulse Resp BP Pulse Ox 98.5 F 67 20 136/90 99 01/03/17 07:50 01/03/17 07:50 01/03/17 07:50 01/03/17 07:50 01/03/17 07:50 - Medications Medications: Current Medications Albuterol/Ipratropium (Duoneb 3 Mg/0.5 Mg (3 Ml) Ud) 3 ml INH RQ6 [facility] Last Admin: 01/03/17 08:53 Dose: 3 ml Amlodipine Besylate (Norvasc) 5 mg PO DAILY [facility] Last Admin: 01/03/17 09:05 Dose: 5 mg Aspirin (Ecotrin) 81 mg PO DAILY [facility] Last Admin: 01/03/17 09:05 Dose: 81 mg Budesonide (Pulmicort Respules) 0.25 mg INH RQ12 [facility] Last Admin: 01/03/17 08:53 Dose: 0.25 mg Escitalopram Oxalate (Lexapro) 10 mg PO DAILY [facility] Last Admin: 01/03/17 09:05 Dose: 10 mg Famotidine (Pepcid) 20 mg PO DAILY [facility] Last Admin: 01/03/17 09:05 Dose: 20 mg Gabapentin (Neurontin) 100 mg PO TID [facility] Last Admin: 01/03/17 09:05 Dose: 100 mg Guaifenesin/Dextromethorphan (Robitussin Dm) 10 ml PO Q4H PRN PRN Reason: Cough and congestion Last Admin: 01/01/17 10:37 Dose: 10 ml Heparin Sodium (Porcine) (Heparin) 5,000 units SC Q8 [facility] Last Admin: 01/03/17 05:37 Dose: 5,000 units Moxifloxacin HCl (Avelox Iv 400mg/250ml Ns) 250 mls @ 167 mls/hr IVPB Q24H [facility] Last Admin: 01/02/17 14:06 Dose: 167 mls/hr Lisinopril (Zestril) 5 mg PO DAILY [facility] Last Admin: 01/02/17 09:17 Dose: 5 mg Mirtazapine (Remeron) 7.5 mg PO HS [facility] Last Admin: 01/02/17 21:56 Dose: 7.5 mg Ondansetron HCl (Zofran Inj) 4 mg IVP Q6H PRN PRN Reason: Nausea/Vomiting Last Admin: 12/29/16 09:13 Dose: 4 mg Prednisone (Prednisone Tab) 20 mg PO BID [facility] Last Admin: 01/03/17 09:05 Dose: 20 mg Quetiapine Fumarate (Seroquel) 50 mg PO HS [facility] Last Admin: 01/02/17 21:56 Dose: 50 mg Temazepam (Restoril) 30 mg PO HS PRN PRN Reason: Insomnia Last Admin: 01/01/17 21:59 Dose: 30 mg Tiotropium [place] (Spiriva) 18 mcg INH RQ24 [facility] Last Admin: 01/03/17 08:53 Dose: 18 mcg - Labs Labs: 01/03/17 06:54 01/03/17 06:54 - Constitutional Appears: Non-toxic, No Acute Distress, Cachectic - Head Exam Head Exam: ATRAUMATIC, NORMAL INSPECTION, NORMOCEPHALIC - Eye Exam Eye Exam: EOMI, PERRL - ENT Exam ENT Exam: Mucous Membranes Moist - Neck Exam Neck Exam: Full ROM, Normal Inspection - Respiratory Exam Respiratory Exam: Wheezes Additional comments: expiratory wheezing - Cardiovascular Exam Cardiovascular Exam: +S1, +S2. absent: Tachycardia - GI/Abdominal Exam GI & Abdominal Exam: Soft, Normal Bowel Sounds - Extremities Exam Extremities Exam: Normal Inspection. absent: Pedal Edema, Tenderness - Neurological Exam Neurological Exam: Alert, Awake, Oriented x3 - Psychiatric Exam Psychiatric exam: Anxious - Skin Skin Exam: Intact, Normal Color, Warm Assessment and Plan - Assessment and Plan (Free Text) Assessment: Chest Pain Rule out Acute Coronary Syndrome Troponin I <0.0120, <0.0120, <0.0102 and EKGs (12/26, 16:04): normal sinus rhythm at 84 (12/26; 00:30) normal sinus rhythm at 92, left atrial enlargement. Chest X-ray: Clear lungs. No significant interval change. Continue on home medications: Norvasc 5 mg po daily, Zestril 5 mg po daily. Aspirin 81 mg po daily hemoglobin a1c 5.1 triglycerides 75, cholesterol 139, LDL <30, HDL 109 Monitor Shortness of Breath History of COPD CT Chest without contrast:Grossly stable CT appearance of chest with multiple tiny calcified and noncalcified pulmonary nodules. Focus of probable scarring within inferior aspect of right upper lobe. Centrilobular emphysema. Continue on Avelox 400 mg IVPB Q24h for possible pneumonia. Repeat Procalcitonin <0.05 Continue on Duoneb 3 ml INH RQ6 [facility] instead of PRN Continue on Pulmicort 0,25 mg INH RQ12, Spiriva 18 mcg INH RQ24, and Solumedrol 40 mg IVP TID Monitor Diaphoresis CRP 0.73, ESR 2 f/u CT Chest as above to rule out pneumonia f/u Blood culture Alcohol Abuse Disorder No active signs of withdrawal History of Rectal Adenocarcinoma Per GI, Dr. Nixon, patient was informed that rectal lesion was removed via endoscopic mucosal resection with negative margins per pathology report. Recommends surgical evaluation for wider excision where rectal lesion was to ensure complete resection to minimize risk of recurrence as there is a chance complete resection was not achieved. Patient requires close outpatient follow- up with frequent endoscopyic evaluations and sigmoidoscopy April 2017. Patient is requesting surgical evaluation. General surgery, Dr. Carey, consulted. Help appreciated. Per surgery, continue medical management. No emergent or urgent need for surgery. Start on Pepcid 20 mg po daily Start Ensure TID Abdominal Pain No pain medications CT Abdomen with contrast: abdominal hernia, palpable. 01/01: Leukocytosis. WBC increased to 14.4 UA: Negative. Urine culture: No growth Lipase 79 Discontinue Oxycodone ER 20 mg po q12h Transaminitis likely secondary to Tylenol/Percocet 01/02: Improved, AST/ALT: 58/86 01/01: AST/ALT 104/87 Discontinue Tylenol and Percocet Anxiety/Depression 12/22: Psychiatry, Dr. Orellana, consulted for anxiety. Help appreciated. Will follow-up recommendations Continue on Seroquel 50 mg po HS, Restoril 30 mg po HS Continued on Lexapro 5 mg po daily Continued on on Remeron 7.5 mg po HS for insomnia and poor appetite Insomnia Continued on Remeron and Restoril as above Fall CT Head without contrast - No CT evidence of acute intracranial hemorrhage or acute territorial infarct. Fall Risk Protocol - can only ambulate with assistance Discontinued Morphine and Ativan Prophylaxis Heparin 5000 U SC Q12 [facility] Zofran 4 mg IVP q6h PRN for nausea Heart Healthy Diet PT/OT Dispo Physical therapy to work with patient today. <Monica Evans V - Last Filed: 01/03/17 16:08> Objective - Vital Signs/Intake and Output Vital Signs (last 24 hours): Temp Pulse Resp BP Pulse Ox 98.5 F 67 20 136/90 99 01/03/17 07:50 01/03/17 07:50 01/03/17 07:50 01/03/17 07:50 01/03/17 07:50 - Medications Medications: Current Medications Albuterol/Ipratropium (Duoneb 3 Mg/0.5 Mg (3 Ml) Ud) 3 ml INH RQ6 [facility] Last Admin: 01/03/17 14:14 Dose: 3 ml Amlodipine Besylate (Norvasc) 5 mg PO DAILY [facility] Last Admin: 01/03/17 09:05 Dose: 5 mg Aspirin (Ecotrin) 81 mg PO DAILY [facility] Last Admin: 01/03/17 09:05 Dose: 81 mg Budesonide (Pulmicort Respules) 0.25 mg INH RQ12 [facility] Last Admin: 01/03/17 08:53 Dose: 0.25 mg Escitalopram Oxalate (Lexapro) 10 mg PO DAILY [facility] Last Admin: 01/03/17 09:05 Dose: 10 mg Famotidine (Pepcid) 20 mg PO DAILY [facility] Last Admin: 01/03/17 09:05 Dose: 20 mg Gabapentin (Neurontin) 100 mg PO TID [facility] Last Admin: 01/03/17 14:38 Dose: 100 mg Guaifenesin/Dextromethorphan (Robitussin Dm) 10 ml PO Q4H PRN PRN Reason: Cough and congestion Last Admin: 01/01/17 10:37 Dose: 10 ml Heparin Sodium (Porcine) (Heparin) 5,000 units SC Q8 [facility] Last Admin: 01/03/17 14:38 Dose: 5,000 units Lisinopril (Zestril) 5 mg PO DAILY [facility] Last Admin: 01/03/17 12:32 Dose: 5 mg Mirtazapine (Remeron) 7.5 mg PO HS [facility] Last Admin: 01/02/17 21:56 Dose: 7.5 mg Ondansetron HCl (Zofran Inj) 4 mg IVP Q6H PRN PRN Reason: Nausea/Vomiting Last Admin: 12/29/16 09:13 Dose: 4 mg Prednisone (Prednisone Tab) 20 mg PO BID [facility] Last Admin: 01/03/17 09:05 Dose: 20 mg Quetiapine Fumarate (Seroquel) 100 mg PO HS [facility] Temazepam (Restoril) 30 mg PO HS PRN PRN Reason: Insomnia Last Admin: 01/01/17 21:59 Dose: 30 mg Tiotropium [place] (Spiriva) 18 mcg INH RQ24 [facility] Last Admin: 01/03/17 08:53 Dose: 18 mcg - Labs Labs: 01/03/17 06:54 01/03/17 06:54 Attending/Attestation - Attestation I have personally seen and examined this patient.: Yes I have fully participated in the care of the patient.: Yes I have reviewed all pertinent clinical information, including history, physical exam and plan: Yes Notes (Text): Patient seen, examined, and case discussed with day-time resident. Patient seen at bedside this morning. Patient received a dose ox oxycodone overnight. Patient advised this morning she will not be receive narcotic medication Patient was also started new psychiatric medications yesterday to help with anxiety and depression. Patient has persistent leukocytosis which is improving but is currently on PO steroids. Urine culture negative. Awaiting prelim read of blood culture results. procalcitonin is low. Assessment/Plan Chest Pain * Rule out Acute Coronary Syndrome * Troponin I <0.0120, <0.0120, <0.0102 and * EKGs (12/26, 16:04): normal sinus rhythm at 84 (12/26; 00:30) normal sinus rhythm at 92, left atrial enlargement. * Chest X-ray (12/26/16): Clear lungs. No significant interval change. * Norvasc 5 mg PO daily * Lisinopril 5 mg po daily. * Aspirin 81 mg po daily * Hemoglobin a1c 5.1-->patient is not diabetic * triglycerides 75, cholesterol 139, LDL <30, HDL 109 * No narcotic medication COPD exacerbation * Avelox 400 mg IVPB Q24H (active since 12/28/16) * Chest X-ray (12/26/16): Clear lungs. No significant interval change * Duoneb 3 ml INH RQ6 [facility] * Pulmicort 0.25 mg INH RQ12 * Spiriva 18 mcg INH RQ24 * Prednsione 20mg PO bid (active since 12/31/15; will end tomorrow) * Robotussin DM 10ml PO Q 4hou PRN cough and congestion * CT Chest (01/02/17): gross stable CT appearance of the chest with multiple tiny calcified and noncalcified pulmonary nodules. Focus of probable scarring within the inferior aspect of the right upper lobe. Centrilobular emphysema * Patient is stablized Leukocytosis * Patient is undergoing Prednisone taper * Urine culture is negative, CT chest negative for pneumonia * Ordered for repeat blood cultures pending * ESR low, CRP low, and procalcitonin low * Patient is on IV abx for cover for community acquired pneumonia * Monitor CBC Alcohol Abuse Disorder * No active signs of withdrawal * discontinue Ativan 1 mg po q3h PRN for withdrawal * Patient is requesting ativan and narcotic, but does not show signs of withdrawal. * Psych consult (Dr. Orellana) on board * Repeat lipase-->within normal limits * Gabapentin 100mg PO tid History of Rectal Adenocarcinoma * Per GI, Dr. Nixon, patient was informed that rectal lesion was removed via endoscopic mucosal resection with negative margins per pathology report. Recommends surgical evaluation for wider excision where rectal lesion was to ensure complete resection to minimize risk of recurrence as there is a chance complete resection was not achieved. Patient requires close outpatient follow- up with frequent endoscopyic evaluations and sigmoidoscopy April 2017. * CT Abdomen/Pelvis: no acute findings related to/accounting for the clinical presentation * General surgery, Dr. Carey, consulted. Help appreciated. Per surgery, continue medical management. 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 * CT Head without contrast (12/31/16) - No CT evidence of acute intracranial hemorrhage or acute territorial infarct. * Fall risk protocol * will need to work with physical therapy * Discussed with nursing staff, patient is ambulatory. Prophylaxis * Heparin 5000 units SC [id number] * SCD b/l * Zofran 4 mg IVP q6h PRN for nausea * Heart Healthy Diet * Pepcid 20mh PO bid
--- NOTE | 2017-01-03 12:44 | PCM.PYCHPN ---
Psychiatric Progress Note - Psychiatric Progress Note Patient seen today, length of contact: 16 min Patient Chief Complaint: "I couldn't sleep" Problems Identified/Issues Discussed: The pt is seen, chart reviewed, case discussed. Her daughter who she came with from [place] was with her. The pt is compliant with medications and reports no side-effects. Symptoms are improving but needs more time to stabilize. Sleeplessness continue After care discussed, support and psychoeducation given. Medication Change: Yes (increase seroquel) Medical Record Reviewed: Yes Mental Status Examination - Cognitive Function Orientation: Person, Place, Situation, Time Memory: Impaired Attention: Poor Concentration: Poor Association: WNL - Mood Mood: Depressed, Anxious - Affect Affect: Constricted - Speech Speech: Appropriate - Formal Thought Process Formal Thought Process: No Impairment - Suicidal Ideation Suicidal Ideation: No - Homicidal Ideation Homicidal Ideation: No Goal/Treatment Plan - Goal/Treatment Plan Need for Continued Stay: Severe functional impairment Progress Toward Problem(s) and Goals/Treatment Plan: Lexapro for depression Gabapentin for anxiety Seroquel for insomnia, increased Support and psychoed
[2017-01-03] MEDS: Moxifloxacin IV 400mg/250ml NS 250 ML IVPB SCH (14:38)
[2017-01-04 01:27] VITALS: RESP 20
[2017-01-04] MEDS: Albuterol-Ipratrop 3 mg / 0.5 (3 ml) UD INH SCH ×2 (01:29→08:12)
[2017-01-04 07:27] LABS: BASO % 0.1 % (0.0-2.0); EOS % 0.1 % (0.0-4.0); HEMATOCRIT 34.4 % (34.0-47.0); LYMPH # 2.6 K/uL (1.0-4.3); LYMPH % 21.3 % (20.0-40.0); MEAN CELL VOLUME 99.7 fL (81.0-99.0); MEAN CORPUSCULAR HEMOGLOBIN 32.7 pg (27.0-31.0); MEAN CORPUSCULAR HGB CONC 32.8 g/dL (33.0-37.0); MEAN PLATELET VOLUME 7.4 fL (7.2-11.7); MONO # 1.4 K/uL (0.0-0.8); RED CELL DISTRIBUTION WIDTH 18.2 % (11.5-14.5)
[2017-01-04 07:44] LABS: CHLORIDE 100 mmol/L (98-107); POTASSIUM 4.1 mmol/L (3.6-5.2); SODIUM 136 mmol/L (132-148)
[2017-01-04 07:46] LABS: BILIRUBIN,TOTAL 0.6 mg/dL (0.2-1.3); GFR AFRICAN-AMERICAN > 60
[2017-01-04 07:47] LABS: ALB/GLOB RATIO 1.5 (1.0-2.1); ALKALINE PHOSPHATASE 48 U/L (38-126); ALT/SGPT 46 U/L (9-52); AST/SGOT 16 U/L (14-36); BLOOD UREA NITROGEN 27 mg/dL (7-17); CALCIUM 8.5 mg/dl (8.6-10.4); CARBON DIOXIDE 28 mmol/L (22-30); GLUCOSE,RANDOM 75 mg/dL (65-105); MAGNESIUM 2.4 mg/dL (1.6-2.3); TOTAL PROTEIN 5.6 g/dL (6.3-8.3)
[2017-01-04] MEDS: Budesonide 0.25 mg/2 ml Inhal Susp UD INH SCH (08:13)
[2017-01-04 08:38] VITALS: BP 110/69; PULSE 64; TEMP 98.3; O2SAT 95
[2017-01-04] MEDS: Tiotropium 18 mcg Cap For Inhalation INH SCH (10:55)
--- NOTE | 2017-01-04 21:34 | CP.PCM.DIS ---
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 Patient is undergoing Prednisone taper * Urine culture is negative, CT chest negative for pneumonia * Blood cultures are negative thus far; urine culture negative * ESR low, CRP low, and procalcitonin low * Patient is on IV abx for cover for community acquired pneumonia completed * Monitor CBC Alcohol Abuse Disorder * No active signs of withdrawal * discontinue Ativan 1 mg po q3h PRN for withdrawal * Patient is requesting ativan and narcotic, but does not show signs of withdrawal. * Psych consult (Dr. Orellana) on board * Repeat lipase-->within normal limits * Gabapentin 100mg PO tid History of Rectal Adenocarcinoma * Per GI, Dr. Nixon, patient was informed that rectal lesion was removed via endoscopic mucosal resection with negative margins per pathology report. Recommends surgical evaluation for wider excision where rectal lesion was to ensure complete resection to minimize risk of recurrence as there is a chance complete resection was not achieved. Patient requires close outpatient follow- up with frequent endoscopyic evaluations and sigmoidoscopy April 2017. * CT Abdomen/Pelvis: no acute findings related to/accounting for the clinical presentation * General surgery, Dr. Carey, consulted. Help appreciated. Per surgery, continue medical management. 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 * CT Head without contrast (12/31/16) - No CT evidence of acute intracranial hemorrhage or acute territorial infarct. * Fall risk protocol * will need to work with physical therapy * Discussed with nursing staff, patient is ambulatory. Prophylaxis * Heparin 5000 units SC [id number] * SCD b/l * Zofran 4 mg IVP q6h PRN for nausea * Heart Healthy Diet * Pepcid 20mh PO bid
--- NOTE | 2017-01-07 23:19 | CARD ---
APPROVED REPORT EKG Measurement Heart [id number] <Conclusion> Normal sinus rhythm Possible Left atrial enlargement Borderline ECG
== END 2017-01-04 13:27 | disposition home or self-care (01) | DRG 88 ==
LOC: C.ER 15:36 → C.5T 18:03 → OBSVTOIN 18:55 → C.9E 18:55 → C.6T 20:56
PROVIDERS: ADMIT Hospitalist; ATTEND Hospitalist
DX: J44.1 Chronic obstructive pulmonary disease with (acute) exacerbation (principal); C20 Malignant neoplasm of rectum; I10 Essential (primary) hypertension; F32.9 Major depressive disorder, single episode, unspecified; D72.829 Elevated white blood cell count, unspecified; J43.2 Centrilobular emphysema; W19.XXXA Unspecified fall, initial encounter; K59.00 Constipation, unspecified; F10.10 Alcohol abuse, uncomplicated; R07.2 Precordial pain; J45.909 Unspecified asthma, uncomplicated; F17.210 Nicotine dependence, cigarettes, uncomplicated; Z91.19 Patient's noncompliance with other medical treatment and regimen; Z86.73 Personal history of transient ischemic attack (TIA), and cerebral infarction without residual deficits; I25.2 Old myocardial infarction; Z83.3 Family history of diabetes mellitus; Z82.49 Family history of ischemic heart disease and other diseases of the circulatory system; Z59.0 Homelessness; Z79.899 Other long term (current) drug therapy; Z79.82 Long term (current) use of aspirin; F41.1 Generalized anxiety disorder; R74.0 Nonspecific elevation of levels of transaminase and lactic acid dehydrogenase [LDH]; S00.83XA Contusion of other part of head, initial encounter; T42.4X5A Adverse effect of benzodiazepines, initial encounter; T40.2X5A Adverse effect of other opioids, initial encounter; Y92.230 Patient room in hospital as the place of occurrence of the external cause; K29.50 Unspecified chronic gastritis without bleeding; K44.9 Diaphragmatic hernia without obstruction or gangrene; M53.3 Sacrococcygeal disorders, not elsewhere classified

== ENCOUNTER 2017-03-03 09:31 | Inpatient (IN) | payer MEDICAID, OTHER ==
[2017-03-03 09:36] VITALS: BMI 18.6
[2017-03-03] MEDS ORDERED: Albuterol-Ipratrop 3 mg / 0.5 (3 ml) UD INH STA ×4 (09:49→13:28)
[2017-03-03] MEDS ORDERED: Oxycodone/Acetaminophen 5/325 mg Tab PO STA (09:50)
[2017-03-03] MEDS ORDERED: Albuterol-Ipratrop 3 mg / 0.5 (3 ml) UD ONE ×2 (09:58→12:30)
[2017-03-03] MEDS ORDERED: Oxycodone/Acetaminophen 5/325 mg Tab ONE (09:59)
[2017-03-03 10:18] LABS: BASO % 0.4 % (0.0-2.0); EOS # 0.1 K/uL (0.0-0.7); EOS % 0.5 % (0.0-4.0); HEMOGLOBIN 13.3 g/dL (11.0-16.0); LYMPH # 2.3 K/uL (1.0-4.3); LYMPH % 24.6 % (20.0-40.0); MEAN CELL VOLUME 93.5 fL (81.0-99.0); MEAN CORPUSCULAR HEMOGLOBIN 30.4 pg (27.0-31.0); MEAN CORPUSCULAR HGB CONC 32.5 g/dL (33.0-37.0); MEAN PLATELET VOLUME 7.2 fL (7.2-11.7); MONO # 0.4 K/uL (0.0-0.8); MONO % 4.3 % (0.0-10.0); NEUT # 6.6 K/uL (1.8-7.0); NEUT % 70.2 % (50.0-75.0); RBC 4.37 Mil/uL (3.80-5.20); RED CELL DISTRIBUTION WIDTH 15.7 % (11.5-14.5); WHITE BLOOD COUNT 9.4 K/uL (4.8-10.8)
--- NOTE | 2017-03-03 10:31 | C.PDOC ---
History Of Present Illness 61 year old female presents to the ER with a complaint of SOB, wheezing and productive cough with clear sputum since yesterday. Patient has Hx of COPD/ asthma. Patient also reports having chronic bilateral leg pain due sciatica; she states she has not been able to follow up with pain management due to the recent of her daughter. She states she takes Percocet 10mg. She denies fever, chest pain, abdominal pain, nausea/vomiting. Time Seen by Provider: 03/03/17 09:43 Chief Complaint (Nursing): Shortness Of Breath History Per: Patient History/Exam Limitations: no limitations Onset/Duration Of Symptoms: Days (Since yesterday) Current Symptoms Are (Timing): Still Present Initiating Event: Other (Not known) Severity: Moderate Associated Symptoms: Productive Cough (Clear sputum), Other (Wheezing). denies : Fever, Chest Pain Past Medical History Reviewed: Historical Data, Nursing Documentation, Vital Signs Vital Signs: Last Vital Signs Temp 98.3 F 03/04/17 15:00 Pulse 80 03/04/17 15:30 Resp 20 03/04/17 15:00 BP 117/72 03/04/17 15:00 Pulse Ox 97 03/04/17 15:00 - Medical History PMH: Anxiety, Arthritis (B/L KNEE 4 YRS; L SH STIFF), Asthma, COPD, Depression, Emphysema, HTN Surgical History: Appendectomy - [facility] Procedures EXCISION OF ASCENDING COLON, ENDO (07/16/16) EXCISION OF RECTUM, ENDO, DIAGN (07/16/16) EXCISION OF TRANSVERSE COLON, ENDO (07/16/16) INDIVIDUAL PSYCHOTHERAPY, SUPPORTIVE (11/05/16) INTRODUCTION OF ELECTROL/WATER BAL INTO LOW GI, ENDO (07/16/16) Family History: States: No Known Family Hx - Social History Hx Tobacco Use: Yes Hx Alcohol Use: Yes Hx Substance Use: No - Immunization History Hx Tetanus Toxoid Vaccination: No Hx Influenza Vaccination: No Hx Pneumococcal Vaccination: No Review Of Systems Except As Marked, All Systems Reviewed And Found Negative. Cardiovascular: Negative for: Chest Pain, Palpitations Respiratory: Positive for: Cough, Shortness of Breath, Sputum (Clear), Wheezing Gastrointestinal: Negative for: Nausea, Vomiting, Abdominal Pain, Diarrhea Musculoskeletal: Positive for: Leg Pain (Bilateral, chronic) Physical Exam - Physical Exam Appears: Non-toxic, Other (Speaking in complete sentences) Skin: Normal Color, Warm, Dry Head: Normacephalic Oral Mucosa: Moist Throat: Normal, No Erythema, No Exudate Neck: Normal, Supple Cardiovascular: Rhythm Regular, No Murmur Respiratory: No Accessory Muscle Use, No Rales, No Rhonchi, Wheezing (Diffuse expiratory wheezing bilaterally) Gastrointestinal/Abdominal: Normal Exam, Bowel Sounds, Soft, No Tenderness Extremity: No Pedal Edema, No Calf Tenderness, No Deformity, No Swelling (Lower extremity) Neurological/Psych: Oriented x3 ED Course And Treatment - Laboratory Results Result Diagrams: 03/04/17 08:08 03/04/17 08:08 ECG: Interpreted By Me, Viewed By Me (NSR 81 bpm, normal axis, no acute ST/T wave changes) ECG Rhythm: Sinus Rhythm ECG Interpretation: Normal O2 Sat by Pulse Oximetry: 99 (Room air) Pulse Ox Interpretation: Normal - Radiology CXR: Interpreted by Me, Viewed By Me CXR Interpretation: No: No Acute Disease, Infiltrates Progress Note: Blood work, EKG and CXR ordered and reviewed. Patient given IV solumedrol, duoneb treatments, PO Prednisone. Patient then coughed up Percocet , IV morphine given instead. Reevaluation Time: 13:15 Reassessment Condition: Improved (Patient reassessed, pain has improved. On exam, she has improved air entry B/L and wheezing has improved but is still present. Patient still c/o feeling SOB, will need admission for COPD exacerbation.) - Physician Consult Information Physician Contacted: Monica Evans Outcome Of Conversation: Discussed patient with hospitalist, agrees with admission for COPD exacerbation. Given IV Rocephin and IV azithromycin dose for COPD. Critical Care Time - Critical Care Note Total Time (in mins): 35 Documented critical care: time excludes all time spent performing seperately billable procedures. Disposition - Disposition Disposition: HOSPITALIZED Disposition Time: 13:30 Condition: STABLE - Clinical Impression Clinical Impression: COPD exacerbation, Dyspnea - Scribe Statement The provider has reviewed the documentation as recorded by the Jorge Libhunter Tilley All medical record entries made by the Scribe were at my direction and personally dictated by me. I have reviewed the chart and agree that the record accurately reflects my personal performance of the history, physical exam, medical decision making, and the department course for this patient. I have also personally directed, reviewed, and agree with the discharge instructions and disposition.
[2017-03-03 11:20] LABS: ALBUMIN 3.5 g/dL (3.5-5.0)
[2017-03-03 11:23] LABS: ALB/GLOB RATIO 1.4 (1.0-2.1); AST/SGOT 57 U/L (14-36); GFR AFRICAN-AMERICAN > 60; GFR NON-AFRICAN AMERICAN > 60
[2017-03-03 11:24] LABS: ALT/SGPT 32 U/L (9-52); BLOOD UREA NITROGEN 10 mg/dL (7-17); CALCIUM 8.3 mg/dl (8.6-10.4)
[2017-03-03 11:38] LABS: B-TYPE NATRIURETIC PEPTIDE 193 pg/mL (0-900); CK-MB 0.83 ng/mL (0.0-3.38)
[2017-03-03] MEDS ORDERED: Morphine 4 MG/ML VIAL ONE (12:11)
[2017-03-03] MEDS ORDERED: Azithromycin 500 MG in Sodium Chloride 0.9% 250 ML IVPB STA (13:27)
[2017-03-03] MEDS ORDERED: cefTRIAXone IV 1 gm in Dextros 50 ML IV STA (13:27)
[2017-03-03] MEDS ORDERED: cefTRIAXone IV 1 gm in Dextros 50 ML IVPB ONE (13:58)
[2017-03-03] MEDS ORDERED: Azithromycin 500mg/250ML NS 500 MG/250 ML BAG IVPB ONE (13:59)
--- NOTE | 2017-03-03 15:22 | RAD ---
PROCEDURE: CHEST RADIOGRAPH, 1 VIEW HISTORY: SOB COMPARISON: 12/26/2016 FINDINGS: LUNGS: Clear. PLEURA: Elevated right hemidiaphragm with associated blunting of the right costophrenic angle. This is unchanged compared to at least 2015 and is a chronic finding. CARDIOVASCULAR: Normal heart size. Surgical clips seen in right paratracheal region. OSSEOUS STRUCTURES: No significant abnormalities. VISUALIZED UPPER ABDOMEN: Normal. OTHER FINDINGS: None. IMPRESSION: No active disease.
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
[2017-03-03] MEDS: Budesonide 0.5 mg/2 ml Inhal Susp UD INH SCH (20:13)
[2017-03-03] MEDS: Albuterol-Ipratrop 3 mg / 0.5 (3 ml) UD INH SCH (20:14)
[2017-03-03 20:23] LABS: CK-MB 1.22 ng/mL (0.0-3.38)
[2017-03-03] MEDS: Oxycodone/Acetaminophen 5/325 mg Tab PO PRN (21:48)
[2017-03-04] MEDS: Albuterol-Ipratrop 3 mg / 0.5 (3 ml) UD INH SCH ×4 (01:42→19:40)
[2017-03-04] MEDS: Budesonide 0.5 mg/2 ml Inhal Susp UD INH SCH ×2 (07:25→19:40)
[2017-03-04] MEDS: Tiotropium 18 mcg Cap For Inhalation INH SCH (07:29)
[2017-03-04 08:19] LABS: BASO % 0.1 % (0.0-2.0); HEMOGLOBIN 13.2 g/dL (11.0-16.0); LYMPH # 0.9 K/uL (1.0-4.3); MEAN CELL VOLUME 92.1 fL (81.0-99.0); MEAN CORPUSCULAR HEMOGLOBIN 30.8 pg (27.0-31.0); MEAN CORPUSCULAR HGB CONC 33.5 g/dL (33.0-37.0); MEAN PLATELET VOLUME 7.4 fL (7.2-11.7); MONO # 0.2 K/uL (0.0-0.8); MONO % 1.7 % (0.0-10.0); NEUT # 8.2 K/uL (1.8-7.0); NEUT % 88.2 % (50.0-75.0); RBC 4.3 Mil/uL (3.80-5.20); RED CELL DISTRIBUTION WIDTH 15.3 % (11.5-14.5); WHITE BLOOD COUNT 9.2 K/uL (4.8-10.8)
[2017-03-04 08:30] LABS: ALBUMIN 3.4 g/dL (3.5-5.0)
[2017-03-04 08:33] LABS: ALB/GLOB RATIO 1.2 (1.0-2.1); ALT/SGPT 22 U/L (9-52); AST/SGOT 25 U/L (14-36); BLOOD UREA NITROGEN 10 mg/dL (7-17); GFR AFRICAN-AMERICAN > 60; GFR NON-AFRICAN AMERICAN > 60
[2017-03-04 08:34] LABS: CALCIUM 8.8 mg/dl (8.6-10.4)
[2017-03-04 08:42] LABS: CK-MB 1.44 ng/mL (0.0-3.38)
[2017-03-04] MEDS: Oxycodone/Acetaminophen 5/325 mg Tab PO PRN ×2 (08:51→17:08)
--- NOTE | 2017-03-04 10:05 | CARD ---
APPROVED REPORT EKG Measurement Heart [id number] <Conclusion> Normal sinus rhythm Cannot rule out Anterior infarct, age undetermined Abnormal ECG
--- NOTE | 2017-03-04 11:06 | CP.PCM.PN ---
<Kiana Lua - Last Filed: 03/04/17 13:33> Subjective - Date & Time of Evaluation Date of Evaluation: 03/04/17 Time of Evaluation: 11:06 - Subjective Subjective: Medicine Progress Note: Dr. Strickland Service Patient was seen and examined at bedside. Patient was upset and depressed due to her daughter recent passing. Patient reports not sleeping well the previous night, only getting a few hours of sleep. Patient reports her shortness of breath and chest pain has improved. She also states that she has very high anxiety and her throat and chest feel tight. Patient admits to feeling dizzy and no appetite this morning.Patient denies chest pain, palpitations, abdominal pain, vomiting, diarrhea, constipation, fever, and chills. Objective - Vital Signs/Intake and Output Vital Signs (last 24 hours): Temp Pulse Resp BP Pulse Ox 98.1 F 62 18 148/89 98 03/04/17 08:00 03/04/17 08:00 03/04/17 08:00 03/04/17 08:00 03/04/17 08:00 - Medications Medications: Current Medications Albuterol/Ipratropium (Duoneb 3 Mg/0.5 Mg (3 Ml) Ud) 3 ml INH RQ6 [facility] Last Admin: 03/04/17 07:25 Dose: Not Given Alprazolam (Xanax) 0.5 mg PO TID PRN PRN Reason: Anxiety Last Admin: 03/04/17 10:15 Dose: 0.5 mg Amlodipine Besylate (Norvasc) 5 mg PO DAILY [facility] Last Admin: 03/04/17 10:14 Dose: 5 mg Aspirin (Ecotrin) 81 mg PO DAILY [facility] Last Admin: 03/04/17 10:15 Dose: 81 mg Budesonide (Pulmicort Respules) 0.5 mg INH RQ12 [facility] Last Admin: 03/04/17 07:25 Dose: Not Given Escitalopram Oxalate (Lexapro) 10 mg PO DAILY [facility] Last Admin: 03/04/17 10:15 Dose: 10 mg Famotidine (Pepcid) 20 mg PO BID [facility] Last Admin: 03/04/17 10:15 Dose: 20 mg Gabapentin (Neurontin) 100 mg PO TID [facility] Last Admin: 03/04/17 10:15 Dose: 100 mg Heparin Sodium (Porcine) (Heparin) 5,000 units SC BID [facility] Last Admin: 03/04/17 10:15 Dose: 5,000 units Ceftriaxone Sodium 1 gm/ (Sodium Chloride) 100 mls @ 100 mls/hr IVPB DAILY [facility] Last Admin: 03/04/17 10:15 Dose: 100 mls/hr Lisinopril (Zestril) 5 mg PO DAILY [facility] Last Admin: 03/04/17 10:14 Dose: 5 mg Methylprednisolone (Solu-Medrol) 50 mg IV Q12H [facility] Mirtazapine (Remeron) 7.[address] [facility] Last Admin: 03/03/17 21:36 Dose: 7.5 mg Oxycodone/Acetaminophen (Percocet 5/325 Mg Tab) 1 tab PO Q6H PRN PRN Reason: Pain, moderate (4-7) Stop: 03/06/17 15:55 Last Admin: 03/04/17 08:51 Dose: 1 tab Potassium Chloride (K-Dur 20 Meq Er Tab) 40 meq PO ONCE ONE Stop: 03/05/17 10:36 Potassium Chloride (K-Dur 20 Meq Er Tab) 20 meq PO ONCE ONE Stop: 03/04/17 15:01 Quetiapine Fumarate (Seroquel) [address] [facility] Last Admin: 03/04/17 00:05 Dose: 100 mg Tiotropium [place] (Spiriva) 18 mcg INH RQ24 [facility] - Labs Labs: 03/04/17 08:08 03/04/17 08:08 - Constitutional Appears: In Acute Distress - Head Exam Head Exam: NORMAL INSPECTION, NORMOCEPHALIC - Eye Exam Eye Exam: EOMI, Normal appearance - ENT Exam ENT Exam: Mucous Membranes Moist - Neck Exam Neck Exam: Full ROM, Normal Inspection - Respiratory Exam Respiratory Exam: Decreased Breath Sounds, Wheezes, NORMAL BREATHING PATTERN. absent: Clear to Ausculation Bilateral - Cardiovascular Exam Cardiovascular Exam: REGULAR RHYTHM, +S1, +S2 - GI/Abdominal Exam GI & Abdominal Exam: Soft, Normal Bowel Sounds. absent: Distended, Tenderness - Extremities Exam Extremities Exam: Full ROM. absent: Calf Tenderness, Pedal Edema, Tenderness - Neurological Exam Neurological Exam: Alert, Awake, Oriented x3 - Psychiatric Exam Psychiatric exam: Anxious, Depressed. absent: Normal Affect, Normal Mood - Skin Skin Exam: Dry, Intact, Normal Color, Warm Assessment and Plan (1) COPD exacerbation Assessment & Plan: Chest Xray (03/03/17)- no active disease Duoneb 3ml ING Q6 Methyprednisolone 50mg IV Q6 Pulmicort 0.5 INH Q12 (home med) Spiriva 18mcg ING Q24 (home med) Tiotropium [place] 1 inhaler INH once Status: Acute (2) Sciatica Assessment & Plan: Gabapentin 100mg PO TID Status: Acute (3) Chest pain Assessment & Plan: ROMIs x 3 negative EKG- normal Percocet 5/325mg Tab Q6 PRN Status: Acute (4) HTN (hypertension) Assessment & Plan: Norvasc 5mg PO daily (home med) Lisinopril 5mg PO daily (home med) Monitor BP Heart healthy diet, 2Na diet Status: Chronic (5) Depression with anxiety Assessment & Plan: Xanax 0.5mg PO TID PRN Lexapro 10mg PO Daily (home med) Remeron 7.5mg PO HS (home med) Seroquel 100mg PO HS Consult Psychiatry- Dr. Palencia, help appreciated. Status: Acute (6) Hypokalemia Assessment & Plan: Potassium on 03/04/17- 3.2 K-Dur 40mEq PO once (03/04/17) K-Dur 20mEq PO once (03/04/17) Status: Acute (7) Prophylactic measure Assessment & Plan: SCDs Heart Healthy Diet ASA 81mg daily Pepcid 20mg BID Heparin 5,000 SC BID Activity as tolerated Status: Acute <Daren Strickland H - Last Filed: 03/04/17 16:38> Objective - Vital Signs/Intake and Output Vital Signs (last 24 hours): Temp Pulse Resp BP Pulse Ox 98.1 F 80 18 148/89 98 03/04/17 08:00 03/04/17 15:30 03/04/17 08:00 03/04/17 08:00 03/04/17 08:00 Intake and Output: 03/04/17 03/04/17 06:59 18:59 Intake Total 840 Balance 840 - Medications Medications: Current Medications Albuterol/Ipratropium (Duoneb 3 Mg/0.5 Mg (3 Ml) Ud) 3 ml INH RQ6 [facility] Last Admin: 03/04/17 13:29 Dose: 3 ml Alprazolam (Xanax) 0.5 mg PO TID PRN PRN Reason: Anxiety Last Admin: 03/04/17 10:15 Dose: 0.5 mg Amlodipine Besylate (Norvasc) 5 mg PO DAILY [facility] Last Admin: 03/04/17 10:14 Dose: 5 mg Aspirin (Ecotrin) 81 mg PO DAILY [facility] Last Admin: 03/04/17 10:15 Dose: 81 mg Budesonide (Pulmicort Respules) 0.5 mg INH RQ12 [facility] Last Admin: 03/04/17 07:25 Dose: Not Given Escitalopram Oxalate (Lexapro) 10 mg PO DAILY [facility] Last Admin: 03/04/17 10:15 Dose: 10 mg Famotidine (Pepcid) 20 mg PO BID [facility] Last Admin: 03/04/17 10:15 Dose: 20 mg Gabapentin (Neurontin) 100 mg PO TID [facility] Last Admin: 03/04/17 14:23 Dose: 100 mg Heparin Sodium (Porcine) (Heparin) 5,000 units SC BID [facility] Last Admin: 03/04/17 10:15 Dose: 5,000 units Ceftriaxone Sodium 1 gm/ (Sodium Chloride) 100 mls @ 100 mls/hr IVPB DAILY [facility] Last Admin: 03/04/17 10:15 Dose: 100 mls/hr Lisinopril (Zestril) 5 mg PO DAILY [facility] Last Admin: 03/04/17 10:14 Dose: 5 mg Methylprednisolone (Solu-Medrol) 50 mg IV Q12H [facility] Mirtazapine (Remeron) 7.5 mg PO HS [facility] Last Admin: 03/03/17 21:36 Dose: 7.5 mg Oxycodone/Acetaminophen (Percocet 5/325 Mg Tab) 1 tab PO Q6H PRN PRN Reason: Pain, moderate (4-7) Stop: 03/06/17 15:55 Last Admin: 03/04/17 08:51 Dose: 1 tab Quetiapine Fumarate (Seroquel) 100 mg PO HS [facility] Last Admin: 03/04/17 00:05 Dose: 100 mg Tiotropium [place] (Spiriva) 18 mcg INH RQ24 [facility] Last Admin: 03/04/17 07:29 Dose: Not Given - Labs Labs: 03/04/17 08:08 03/04/17 08:08 Attending/Attestation - Attestation I have personally seen and examined this patient.: Yes I have fully participated in the care of the patient.: Yes I have reviewed all pertinent clinical information, including history, physical exam and plan: Yes Notes (Text): 03/04/17 16:37 Medical attending: Patient was seen and examined by me, agree with the above note by vp medical. The patient's breathing was improved, however like previous admissions, here she 's been very emotional, crying, anxiety, this is not a new situation from before she she's had a lot of stress and anxiety in her life she reports that she recently her daughter has . Regarding consult psychiatry to see if any adjustments to her medications need to be made. Thank you very much, Daren Strickland
[2017-03-04] MEDS ORDERED: Potassium Chloride 20 mEq ER Tab PO ONE ×2 (12:00→15:00)
[2017-03-05] MEDS: Albuterol-Ipratrop 3 mg / 0.5 (3 ml) UD INH SCH ×4 (01:42→20:44)
--- NOTE | 2017-03-05 07:21 | CP.PCM.PN ---
Subjective - Date & Time of Evaluation Date of Evaluation: 03/05/17 Time of Evaluation: 07:20 - Subjective Subjective: Medicine Progress Note: Dr. Strickland Service Patient was seen and examined at bedside. Patient reports her shortness of breath and chest pain has improved. She states she has chest tightness and congestion, coughing up green sputum. Patient reports sleeping better. Patient reports her sciatic is still causing discomfort. She states she had a bowel movement yesterday. Patient denies chest pain, palpitations, abdominal pain, vomiting, diarrhea, constipation, dizziness fever, and chills. Objective - Vital Signs/Intake and Output Vital Signs (last 24 hours): Temp Pulse Resp BP Pulse Ox 97.4 F L 84 20 132/82 99 03/04/17 23:05 03/04/17 23:05 03/04/17 23:05 03/04/17 23:05 03/04/17 23:05 Intake and Output: 03/05/17 03/05/17 06:59 18:59 Intake Total 240 Balance 240 - Medications Medications: Current Medications Albuterol/Ipratropium (Duoneb 3 Mg/0.5 Mg (3 Ml) Ud) 3 ml INH RQ6 [facility] Last Admin: 03/05/17 01:42 Dose: Not Given Alprazolam (Xanax) 0.5 mg PO TID PRN PRN Reason: Anxiety Last Admin: 03/04/17 21:38 Dose: 0.5 mg Amlodipine Besylate (Norvasc) 5 mg PO DAILY [facility] Last Admin: 03/04/17 10:14 Dose: 5 mg Aspirin (Ecotrin) 81 mg PO DAILY [facility] Last Admin: 03/04/17 10:15 Dose: 81 mg Budesonide (Pulmicort Respules) 0.5 mg INH RQ12 [facility] Last Admin: 03/04/17 19:40 Dose: Not Given Escitalopram Oxalate (Lexapro) 10 mg PO DAILY [facility] Last Admin: 03/04/17 10:15 Dose: 10 mg Famotidine (Pepcid) 20 mg PO BID [facility] Last Admin: 03/04/17 17:07 Dose: 20 mg Gabapentin (Neurontin) 100 mg PO TID [facility] Last Admin: 03/04/17 17:07 Dose: 100 mg Heparin Sodium (Porcine) (Heparin) 5,000 units SC BID [facility] Last Admin: 03/04/17 17:07 Dose: 5,000 units Ceftriaxone Sodium 1 gm/ (Sodium Chloride) 100 mls @ 100 mls/hr IVPB DAILY [facility] Last Admin: 03/04/17 10:15 Dose: 100 mls/hr Lisinopril (Zestril) 5 mg PO DAILY [facility] Last Admin: 03/04/17 10:14 Dose: 5 mg Methylprednisolone (Solu-Medrol) 50 mg IV Q12H [facility] Last Admin: 03/05/17 06:29 Dose: 50 mg Mirtazapine (Remeron) 7.5 mg PO [facility] Last Admin: 03/04/17 21:39 Dose: 7.5 mg Oxycodone/Acetaminophen (Percocet 5/325 Mg Tab) 1 tab PO Q6H PRN PRN Reason: Pain, moderate (4-7) Stop: 03/06/17 15:55 Last Admin: 03/04/17 17:08 Dose: 1 tab Quetiapine Fumarate (Seroquel) 100 mg PO [facility] Last Admin: 03/04/17 21:39 Dose: 100 mg Tiotropium [place] (Spiriva) 18 mcg INH RQ24 [facility] Last Admin: 03/04/17 07:29 Dose: Not Given - Labs Labs: 03/04/17 08:08 03/04/17 08:08 - Constitutional Appears: No Acute Distress - Head Exam Head Exam: NORMAL INSPECTION, NORMOCEPHALIC - Eye Exam Eye Exam: EOMI, Normal appearance - ENT Exam ENT Exam: Mucous Membranes Moist - Neck Exam Neck Exam: Full ROM, Normal Inspection - Respiratory Exam Respiratory Exam: Decreased Breath Sounds, Rhonchi, Wheezes. absent: Clear to Ausculation Bilateral - Cardiovascular Exam Cardiovascular Exam: REGULAR RHYTHM, +S1, +S2 - GI/Abdominal Exam GI & Abdominal Exam: Soft, Tenderness (when palpated), Normal Bowel Sounds - Extremities Exam Extremities Exam: Full ROM. absent: Calf Tenderness, Pedal Edema, Tenderness - Neurological Exam Neurological Exam: Alert, Awake, Oriented x3 - Psychiatric Exam Psychiatric exam: Anxious, Depressed - Skin Skin Exam: Dry, Intact, Normal Color, Warm Assessment and Plan (1) COPD exacerbation Assessment & Plan: Chest Xray (03/03/17)- no active disease Duoneb 3ml ING Q6 Methyprednisolone 50mg IV Q6 Pulmicort 0.5 INH Q12 (home med) Spiriva 18mcg ING Q24 (home med) Tiotropium [place] 1 inhaler INH once Status: Acute (2) Sciatica Assessment & Plan: Gabapentin 100mg PO TID Status: Acute (3) Chest pain Assessment & Plan: ROMIs x 3 negative EKG- normal Percocet 5/325mg Tab Q6 PRN Status: Acute (4) HTN (hypertension) Assessment & Plan: Norvasc 5mg PO daily (home med) Lisinopril 5mg PO daily (home med) Monitor BP Heart healthy diet, 2Na diet Status: Chronic (5) Depression with anxiety Assessment & Plan: Xanax 0.5mg PO TID PRN Lexapro 10mg PO Daily (home med) Remeron 7.5mg PO HS (home med) Seroquel 100mg PO HS Consult Psychiatry- Dr. Palencia, help appreciated. Status: Acute (6) Hypokalemia Assessment & Plan: Potassium on 03/04/17- 3.2 K-Dur 40mEq PO once (03/04/17) K-Dur 20mEq PO once (03/04/17) Status: Acute (7) Prophylactic measure Assessment & Plan: SCDs Heart Healthy Diet ASA 81mg daily Pepcid 20mg BID Heparin 5,000 SC BID Activity as tolerated Status: Acute
[2017-03-05 08:08] LABS: ALBUMIN 3.1 g/dL (3.5-5.0)
[2017-03-05 08:11] LABS: GFR AFRICAN-AMERICAN > 60; GFR NON-AFRICAN AMERICAN > 60
[2017-03-05 08:12] LABS: ALT/SGPT 20 U/L (9-52); AST/SGOT 23 U/L (14-36); BLOOD UREA NITROGEN 19 mg/dL (7-17); CALCIUM 8.7 mg/dl (8.6-10.4)
[2017-03-05 08:14] LABS: ALB/GLOB RATIO 1.2 (1.0-2.1)
[2017-03-05] MEDS: Budesonide 0.5 mg/2 ml Inhal Susp UD INH SCH ×2 (08:50→20:44)
[2017-03-05] MEDS: Tiotropium 18 mcg Cap For Inhalation INH SCH (08:50)
[2017-03-05] MEDS: Oxycodone/Acetaminophen 5/325 mg Tab PO PRN ×2 (09:28→15:46)
[2017-03-05] MEDS ORDERED: Potassium Chloride 20 mEq ER Tab PO ONE (10:35)
--- NOTE | 2017-03-05 11:33 | PCM.PSYCH ---
Initial Psychiatric Evaluation - Initial Psychiatric Evaluation Type of Admission: Voluntary Legal Status: Capacity Chief Complaint (in patient's own words): ' I m feeling very depressed.' History of Present Illness and Precipitating Events: This is a 61 y/o HF who lives with her daughter, unemployed on SSD, came to the ED for shortness of breath. Today pt was consulted because of depressed mood. Pt reports past history of depression but denies any history of any inpatient psychiatric hospitalization. She states that her young daughter just a couple of months ago. Since then she is becoming increasingly depressed. She reports depressed mood, feelings of hopelessness and helplessness. She also reports recent vague thoughts of suicide, but denies active suicide plan/ intent. Pt denies any prior hx of suicide ideation or any attempts. She denies any manic or psychotic symptoms. She reports past history of drinking but denies any active drinking and drugs. PMH: COPD/Asthma, HTN, Sciatica Current Medications: Active Medications Generic Name Dose Route Start Last Admin Trade Name Freq PRN Reason Stop Dose Admin Albuterol/Ipratropium 3 ml 03/03/17 20:00 03/05/17 08:52 Duoneb 3 Mg/0.5 Mg (3 Ml) Ud INH 3 ml RQ6 [facility] Administration Alprazolam 0.5 mg 03/03/17 15:53 03/05/17 07:43 Xanax PO 0.5 mg TID PRN Administration Anxiety Amlodipine Besylate 5 mg 03/03/17 16:00 03/05/17 09:29 Norvasc PO 5 mg DAILY [facility] Administration Aspirin 81 mg 03/03/17 16:00 03/05/17 09:30 Ecotrin PO 81 mg DAILY [facility] Administration Budesonide 0.5 mg 03/03/17 20:00 03/05/17 08:50 Pulmicort Respules INH Not Given RQ12 [facility] Escitalopram Oxalate 10 mg 03/03/17 16:00 03/05/17 09:30 Lexapro PO 10 mg DAILY [facility] Administration Famotidine 20 mg 03/03/17 18:00 03/05/17 09:29 Pepcid PO 20 mg BID [facility] Administration Gabapentin 100 mg 03/03/17 18:00 03/05/17 09:29 Neurontin PO 100 mg TID [facility] Administration Heparin Sodium (Porcine) 5,000 units 03/03/17 18:00 03/05/17 09:30 Heparin SC 5,000 units BID [facility] Administration Ceftriaxone Sodium 1 gm/ 100 mls @ 100 mls/hr 03/04/17 10:00 03/05/17 09:30 Sodium Chloride IVPB 100 mls/hr DAILY [facility] Administration Lisinopril 5 mg 03/03/17 16:00 03/05/17 09:28 Zestril PO 5 mg DAILY [facility] Administration Methylprednisolone 50 mg 03/04/17 18:00 03/05/17 06:29 Solu-Medrol IV 50 mg Q12H [facility] Administration Mirtazapine 7.5 mg 03/03/17 22:00 03/04/17 21:39 Remeron PO 7.5 mg HS [facility] Administration Oxycodone/Acetaminophen 1 tab 03/03/17 15:54 03/05/17 09:28 Percocet 5/325 Mg Tab PO 03/06/17 15:55 1 tab Q6H PRN Administration Pain, moderate (4-7) Quetiapine Fumarate 100 mg 03/04/17 22:00 03/04/17 21:39 Seroquel PO 100 mg HS [facility] Administration Tiotropium [place] 18 mcg 03/04/17 08:00 03/05/17 08:50 Spiriva INH Not Given RQ24 [facility] Past Psychiatric History - Past Psychiatric History Previous Treatment History: None Pertinent Medical Hx (Current Medical&Sleep Prob, Allergies): Allergies Allergy/AdvReac Type Severity Reaction Status Date / Time pantoprazole sodium Allergy RASH Verified 11/04/16 09:40 [From Protonix] Albuterol HFA [Ventolin HFA 90 mcg/actuation (8 g)] 0.09 mg IH Q4H PRN #1 01/04 Aspirin [Ecotrin] 81 mg PO DAILY #30 01/04/17 Budesonide [Pulmicort Respules] 0.5 mg INH RQ12 #1 neb 01/04/17 Escitalopram [Lexapro] 10 mg PO DAILY #30 tab 01/04/17 Gabapentin [Neurontin] 100 mg PO TID #90 cap 01/04/17 Lisinopril [Zestril] 5 mg PO DAILY #30 tab 01/04/17 Mirtazapine [Remeron] 7.5 mg PO HS #30 tab 01/04/17 QUEtiapine [Seroquel] 100 mg PO HS #30 tab 01/04/17 Tiotropium [Spiriva] 18 mcg INH RQ24 #1 inhaler 01/04/17 amLODIPine [Norvasc] 5 mg PO DAILY #30 tab 01/04/17 Review of Systems - Review of Systems All systems: reviewed and no additional remarkable complaints except - Psychiatric Psychiatric: Anxiety, Hopelessness, Irritability, Suicidal Ideation Mental Status Examination - Personal Presentation Personal Presentation: Looks stated age - Affect Affect: Constricted, Depressed - Motor Activity Motor Activity: Calm - Reliability in Providing Information Reliability in Providing Information: Good - Speech Speech: Organized - Mood Mood: Depressed, Anxious - Formal Thought Process Formal Thought Process: No Impairment - Obsessions/Compulsions Obsessions: No Compulsions: No - Cognitive Functions Orientation: Person, Place, Situation, Time Sensorium: Alert Attention/Concentration: Attentive Abstract Thinking: [place] Estimate of Intelligence: Below average Judgement: Imparied, as evidence by: Poor judgement, Imparied, as evidence by: Lack of insight into illness - Risk Risk: Suicidal, Diminished functioning - Strength & Assets Inventory Strength & Assets Inventory: Family support DSM 5 DX - DSM 5 DSM 5 Diagnosis: Alcohol use disorder in remission Major depressive disorder recurrent severe without psychotic features - Recommended/Plan of Treatment Treatment Recommendations and Plan of Treatment: Alcohol use disorder in remission CBT Psychoeducation Use [place] for abstinence Major depressive disorder recurrent severe without psychotic features CBT Psychoeducation Seroquel 100 mg Increase Remeron to 15 mg po QHS Gabapentin 100 mg PO TID lexapro 10 mg PO Daily Klonopin 0.5 mg PO BID - Smoking Cessation Smoking Cessation Initiated: No
[2017-03-05 12:11] LABS: BASO % 0.1 % (0.0-2.0); HEMOGLOBIN 13.2 g/dL (11.0-16.0); LYMPH % 6.3 % (20.0-40.0); MEAN CORPUSCULAR HEMOGLOBIN 30.5 pg (27.0-31.0); MEAN PLATELET VOLUME 8.1 fL (7.2-11.7); MONO # 0.5 K/uL (0.0-0.8); MONO % 3.2 % (0.0-10.0); NEUT # 13.9 K/uL (1.8-7.0); NEUT % 90.4 % (50.0-75.0); PLATELET COUNT 207 K/uL (130-400); RBC 4.32 Mil/uL (3.80-5.20); RED CELL DISTRIBUTION WIDTH 15.4 % (11.5-14.5)
[2017-03-05 12:12] LABS: MEAN CELL VOLUME 95.3 fL (81.0-99.0); WHITE BLOOD COUNT 15.4 K/uL (4.8-10.8)
[2017-03-05 12:31] LABS: BANDS 7 % (0-2); LYMPHOCYTE 6 % (20-40); NEUTROPHIL 87 % (50-75); PLATELET ESTIMATE NORMAL (NORMAL); TOTAL CELLS COUNTED 100
[2017-03-05 12:32] LABS: ANISOCYTOSIS SLIGHT; OVALOCYTES SLIGHT; POIKILOCYTOSIS SLIGHT
[2017-03-06] MEDS: Albuterol-Ipratrop 3 mg / 0.5 (3 ml) UD INH SCH ×4 (01:27→19:46)
[2017-03-06] MEDS: Oxycodone/Acetaminophen 5/325 mg Tab PO PRN ×2 (03:42→10:02)
[2017-03-06 08:07] LABS: BASO % 0.1 % (0.0-2.0); HEMOGLOBIN 12.8 g/dL (11.0-16.0); LYMPH # 2.1 K/uL (1.0-4.3); LYMPH % 13.1 % (20.0-40.0); MEAN CELL VOLUME 93.4 fL (81.0-99.0); MEAN CORPUSCULAR HEMOGLOBIN 30.5 pg (27.0-31.0); MEAN CORPUSCULAR HGB CONC 32.7 g/dL (33.0-37.0); MEAN PLATELET VOLUME 7.7 fL (7.2-11.7); MONO # 0.7 K/uL (0.0-0.8); MONO % 4.6 % (0.0-10.0); NEUT # 13.2 K/uL (1.8-7.0); NEUT % 82.2 % (50.0-75.0); RBC 4.2 Mil/uL (3.80-5.20); RED CELL DISTRIBUTION WIDTH 15.9 % (11.5-14.5)
[2017-03-06 08:28] LABS: ALBUMIN 3.4 g/dL (3.5-5.0)
[2017-03-06] MEDS: Tiotropium 18 mcg Cap For Inhalation INH SCH (08:29)
[2017-03-06] MEDS: Budesonide 0.5 mg/2 ml Inhal Susp UD INH SCH ×2 (08:30→19:45)
[2017-03-06 08:31] LABS: ALB/GLOB RATIO 1.3 (1.0-2.1); AST/SGOT 48 U/L (14-36); BLOOD UREA NITROGEN 18 mg/dL (7-17); GFR AFRICAN-AMERICAN > 60; GFR NON-AFRICAN AMERICAN > 60
[2017-03-06 08:32] LABS: ALT/SGPT 50 U/L (9-52); MAGNESIUM 2.1 mg/dL (1.6-2.3)
--- NOTE | 2017-03-06 10:26 | RAD ---
HISTORY: Cough, dyspnea COMPARISON: 03/03/2017. TECHNIQUE: Chest PA and lateral FINDINGS: LUNGS: The lungs are well inflated. No focal consolidation. PLEURA: Interval development of small right pleural effusion with No significant left pleural effusion identified. No pneumothorax apparent. CARDIOVASCULAR: Normal. OSSEOUS STRUCTURES: No significant abnormalities. VISUALIZED UPPER ABDOMEN: Normal. OTHER FINDINGS: None. IMPRESSION: Interval development of small right pleural effusion. Underlying atelectasis/pneumonia cannot be entirely excluded. Follow-up is advised.
[2017-03-06 15:30] LABS: SQUAMOUS EPITHIAL 2 /hpf (0-5); URINE BILIRUBIN NEGATIVE (NEGATIVE); URINE BLOOD NEGATIVE (NEGATIVE); URINE CLARITY Clear (Clear); URINE COLOR Straw (YELLOW); URINE GLUCOSE (UA) NORMAL (Normal); URINE LEUKOCYTE ESTERASE NEG Leu/uL (Negative); URINE NITRATE NEGATIVE (NEGATIVE); URINE PROTEIN NEGATIVE (NEGATIVE); URINE UROBILINOGEN NORMAL mg/dL (0.2-1.0)
--- NOTE | 2017-03-06 15:45 | PCM.PYCHPN ---
Psychiatric Progress Note - Psychiatric Progress Note Patient seen today, length of contact: 15 min Patient Chief Complaint: ' I m feeling very depressed.' Problems Identified/Issues Discussed: Patient seen and evaluated, chart reviewed and discussed with the nurse. Patient still reports depressed mood and reports at times feelings of hopelessness or helplessness. She remained tearful and crying and does not contract for safety. She remained isolated and withdrawn. She reports poor sleep and poor appetite. She needs some more time for stabilization. She is compliant with her medications and denies any side effects. Patient requested to go to the psych floor once she gets cleared from the medical floor. Supportive therapy and psychoeducation were given. Medication Change: No Medical Record Reviewed: Yes Mental Status Examination - Cognitive Function Orientation: Person, Place, Situation, Time Memory: Intact Attention: Poor Concentration: WNL Association: WNL Fund of Knowledge: Poor - Mood Mood: Depressed, Anxious - Affect Affect: Constricted, Depressed - Speech Speech: Soft - Formal Thought Process Formal Thought Process: No Impairment - Suicidal Ideation Suicidal Ideation: Yes - Homicidal Ideation Homicidal Ideation: No Goal/Treatment Plan - Goal/Treatment Plan Need for Continued Stay: Discharge may exacerbated symptoms, Severe functional impairment Progress Toward Problem(s) and Goals/Treatment Plan: Alcohol use disorder in remission CBT Psychoeducation Use [place] for abstinence Major depressive disorder recurrent severe without psychotic features CBT Psychoeducation Seroquel 100 mg Increase Remeron to 15 mg po QHS Gabapentin 100 mg PO TID lexapro 10 mg PO Daily Klonopin 0.5 mg PO BID - Smoking Cessation Smoking Cessation Initiated: No
[2017-03-06 16:39] VITALS: O2SAT 99
--- NOTE | 2017-03-06 17:01 | CP.PCM.PN ---
<Kiana Lua - Last Filed: 03/06/17 17:56> Subjective - Date & Time of Evaluation Date of Evaluation: 03/06/17 Time of Evaluation: 16:56 - Subjective Subjective: Medicine Progress Note: Dr. Strickland Service Patient was seen and examined at bedside. Patient reports her shortness of breath and chest pain has improved. She states she has chest tightness and congestion, coughing up yellow sputum. Patient reports sleeping better. Patient reports her sciatic is still causing discomfort. She states she had a bowel movement last night. Patient reports have a decreased appetite. She also reports having discomfort burning with urination. Patient denies palpitations, abdominal pain, vomiting, diarrhea, constipation, dizziness fever, and chills. Objective - Vital Signs/Intake and Output Vital Signs (last 24 hours): Temp Pulse Resp BP Pulse Ox 98.0 F 69 20 143/90 99 03/06/17 15:37 03/06/17 15:37 03/06/17 15:37 03/06/17 15:37 03/06/17 15:37 Intake and Output: 03/06/17 03/06/17 06:59 18:59 Intake Total 920 Balance 920 - Medications Medications: Current Medications Albuterol/Ipratropium (Duoneb 3 Mg/0.5 Mg (3 Ml) Ud) 3 ml INH RQ6 [facility] Last Admin: 03/06/17 15:50 Dose: Not Given Amlodipine Besylate (Norvasc) 5 mg PO DAILY [facility] Last Admin: 03/06/17 10:03 Dose: 5 mg Aspirin (Ecotrin) 81 mg PO DAILY [facility] Last Admin: 03/06/17 10:03 Dose: 81 mg Budesonide (Pulmicort Respules) 0.5 mg INH RQ12 [facility] Last Admin: 03/06/17 08:30 Dose: 0.5 mg Clonazepam (Klonopin) 0.5 mg PO BID [facility] Last Admin: 03/06/17 10:02 Dose: 0.5 mg Escitalopram Oxalate (Lexapro) 10 mg PO DAILY [facility] Last Admin: 03/06/17 10:03 Dose: 10 mg Famotidine (Pepcid) 20 mg PO BID [facility] Last Admin: 03/06/17 10:03 Dose: 20 mg Gabapentin (Neurontin) 100 mg PO TID [facility] Last Admin: 03/06/17 13:15 Dose: 100 mg Heparin Sodium (Porcine) (Heparin) 5,000 units SC BID [facility] Last Admin: 03/06/17 10:03 Dose: 5,000 units Ceftriaxone Sodium 1 gm/ (Sodium Chloride) 100 mls @ 100 mls/hr IVPB DAILY [facility] Last Admin: 03/06/17 10:03 Dose: 100 mls/hr Lisinopril (Zestril) 5 mg PO DAILY [facility] Last Admin: 03/06/17 10:03 Dose: 5 mg Lorazepam (Ativan) 0.5 mg PO Q6 PRN PRN Reason: Agitation Last Admin: 03/06/17 06:56 Dose: 0.5 mg Mirtazapine (Remeron) 15 mg PO HS [facility] Last Admin: 03/05/17 22:08 Dose: 15 mg Prednisone (Prednisone Tab) 10 mg PO BID [facility] Quetiapine Fumarate (Seroquel) 100 mg PO HS [facility] Last Admin: 03/05/17 21:54 Dose: 100 mg Tiotropium [place] (Spiriva) 18 mcg INH RQ24 [facility] Last Admin: 03/06/17 08:29 Dose: 18 mcg - Labs Labs: 03/06/17 07:54 03/06/17 07:54 - Constitutional Appears: No Acute Distress - Head Exam Head Exam: NORMAL INSPECTION, NORMOCEPHALIC - Eye Exam Eye Exam: EOMI, Normal appearance - ENT Exam ENT Exam: Mucous Membranes Moist - Neck Exam Neck Exam: Full ROM, Normal Inspection - Respiratory Exam Respiratory Exam: Accessory Muscle Use, Decreased Breath Sounds, Rhonchi, Wheezes - Cardiovascular Exam Cardiovascular Exam: REGULAR RHYTHM, +S1, +S2 - GI/Abdominal Exam GI & Abdominal Exam: Soft, Normal Bowel Sounds. absent: Tenderness - Extremities Exam Extremities Exam: Full ROM. absent: Calf Tenderness, Pedal Edema, Tenderness - Neurological Exam Neurological Exam: Alert, Awake, Oriented x3 - Psychiatric Exam Psychiatric exam: Depressed, Normal Affect - Skin Skin Exam: Dry, Intact, Normal Color, Warm Assessment and Plan (1) COPD exacerbation Assessment & Plan: Chest Xray (03/03/17)- no active disease Duoneb 3ml ING Q6 Discontinue Methyprednisolone 50mg IV Q6 (03/06/17) Start Prednisone 10mg PO BID Pulmicort 0.5 INH Q12 (home med) Spiriva 18mcg ING Q24 (home med) Tiotropium [place] 1 inhaler INH once Status: Acute (2) Sciatica Assessment & Plan: Gabapentin 100mg PO TID Status: Acute (3) Chest pain Assessment & Plan: ROMIs x 3 negative EKG- normal Percocet 5/325mg Tab Q6 PRN Status: Acute (4) HTN (hypertension) Assessment & Plan: Norvasc 5mg PO daily (home med) Lisinopril 5mg PO daily (home med) Monitor BP Heart healthy diet, 2Na diet Status: Chronic (5) Depression with anxiety Assessment & Plan: Xanax 0.5mg PO TID PRN Lexapro 10mg PO Daily (home med) Remeron 7.5mg PO HS (home med) Seroquel 100mg PO HS Consult Psychiatry- Dr. Palencia, help appreciated. Patient to be transferred to Psych department on 03/06/17 Status: Acute (6) Hypokalemia Assessment & Plan: Potassium on 03/04/17- 3.2, on 03/06/17- 3.5 K-Dur 40mEq PO once (03/04/17) K-Dur 20mEq PO once (03/04/17) Status: Acute (7) Prophylactic measure Assessment & Plan: SCDs Heart Healthy Diet ASA 81mg daily Pepcid 20mg BID Heparin 5,000 SC BID Status: Acute <Daren Strickland H - Last Filed: 03/06/17 18:08> Objective - Vital Signs/Intake and Output Vital Signs (last 24 hours): Temp Pulse Resp BP Pulse Ox 98.0 F 69 20 143/90 99 03/06/17 15:37 03/06/17 15:37 03/06/17 15:37 03/06/17 15:37 03/06/17 15:37 Intake and Output: 03/06/17 03/06/17 06:59 18:59 Intake Total 920 Balance 920 - Medications Medications: Current Medications Albuterol/Ipratropium (Duoneb 3 Mg/0.5 Mg (3 Ml) Ud) 3 ml INH RQ6 [facility] Last Admin: 03/06/17 15:50 Dose: Not Given Amlodipine Besylate (Norvasc) 5 mg PO DAILY [facility] Last Admin: 03/06/17 10:03 Dose: 5 mg Aspirin (Ecotrin) 81 mg PO DAILY [facility] Last Admin: 03/06/17 10:03 Dose: 81 mg Budesonide (Pulmicort Respules) 0.5 mg INH RQ12 [facility] Last Admin: 03/06/17 08:30 Dose: 0.5 mg Clonazepam (Klonopin) 0.5 mg PO BID [facility] Last Admin: 03/06/17 17:21 Dose: 0.5 mg Escitalopram Oxalate (Lexapro) 10 mg PO DAILY [facility] Last Admin: 03/06/17 10:03 Dose: 10 mg Famotidine (Pepcid) 20 mg PO BID [facility] Last Admin: 03/06/17 17:24 Dose: 20 mg Gabapentin (Neurontin) 100 mg PO TID [facility] Last Admin: 03/06/17 17:21 Dose: 100 mg Heparin Sodium (Porcine) (Heparin) 5,000 units SC BID [facility] Last Admin: 03/06/17 17:21 Dose: 5,000 units Ceftriaxone Sodium 1 gm/ (Sodium Chloride) 100 mls @ 100 mls/hr IVPB DAILY [facility] Last Admin: 03/06/17 10:03 Dose: 100 mls/hr Lisinopril (Zestril) 5 mg PO DAILY [facility] Last Admin: 03/06/17 10:03 Dose: 5 mg Lorazepam (Ativan) 0.5 mg PO Q6 PRN PRN Reason: Agitation Last Admin: 03/06/17 06:56 Dose: 0.5 mg Mirtazapine (Remeron) 15 mg PO [facility] Last Admin: 03/05/17 22:08 Dose: 15 mg Prednisone (Prednisone Tab) 10 mg PO BID [facility] Quetiapine Fumarate (Seroquel) 100 mg PO HS [facility] Last Admin: 03/05/17 21:54 Dose: 100 mg Tiotropium [place] (Spiriva) 18 mcg INH RQ24 [facility] Last Admin: 03/06/17 08:29 Dose: 18 mcg - Labs Labs: 03/06/17 07:54 03/06/17 07:54 Attending/Attestation - Attestation I have personally seen and examined this patient.: Yes I have fully participated in the care of the patient.: Yes I have reviewed all pertinent clinical information, including history, physical exam and plan: Yes Notes (Text): Medical attending: Patient was seen and examined by me, agrees the above note by medical assistant float. On examination the patient's breathing is much improved from before. She still does have minimal wheezing on exam however not like when she came in this being said she is still quite emotional, she's as mentioned before under a lot of stress at this time she's not sure what to do with regards to her social situation. At this time her IV Solu-Medrol has been changed over to oral prednisone. She will be going over to the psychiatry team at this time, will also be following her over there as well Thank you very much, Daren Strickland
[2017-03-07] MEDS: Albuterol-Ipratrop 3 mg / 0.5 (3 ml) UD INH SCH ×4 (01:38→22:15)
[2017-03-07 09:08] LABS: BASO % 0.1 % (0.0-2.0); EOS # 0.1 K/uL (0.0-0.7); EOS % 0.4 % (0.0-4.0); LYMPH # 4.5 K/uL (1.0-4.3); LYMPH % 25.1 % (20.0-40.0); MEAN CELL VOLUME 94.4 fL (81.0-99.0); MEAN CORPUSCULAR HGB CONC 32.9 g/dL (33.0-37.0); MEAN PLATELET VOLUME 8.2 fL (7.2-11.7); MONO # 1.2 K/uL (0.0-0.8); MONO % 6.8 % (0.0-10.0); NEUT # 12.2 K/uL (1.8-7.0); NEUT % 67.6 % (50.0-75.0); NRBC % 0.1 % (0.0-2.0); RBC 4.53 Mil/uL (3.80-5.20); RED CELL DISTRIBUTION WIDTH 16.3 % (11.5-14.5); WHITE BLOOD COUNT 18.1 K/uL (4.8-10.8)
[2017-03-07] MEDS: Tiotropium 18 mcg Cap For Inhalation INH SCH (12:29)
[2017-03-07] MEDS: Budesonide 0.5 mg/2 ml Inhal Susp UD INH SCH (14:13)
--- NOTE | 2017-03-07 15:21 | CP.PCM.PN ---
<Kiana Lua - Last Filed: 03/07/17 19:23> Subjective - Date & Time of Evaluation Date of Evaluation: 03/07/17 Time of Evaluation: 15:21 - Subjective Subjective: Medicine Progress Note- Dr. Strickland Service Patient was seen and examined at bedside in no acute distress. She reports feeling better, less depressed and anxious, and less short of breath. Patient reports having leg pain from her sciatic. She also states she is still dizzy and has dysuria. Patient reports having a bowel movement yesterday. Patient denies hacing chest pain, palpitations, abdominal pain, nausea, vomiting, fever , diarrhea, and constipation. Patient is stable. Medicine is signing off. Please reconsult of necessary. Objective - Vital Signs/Intake and Output Vital Signs (last 24 hours): Temp Pulse Resp BP Pulse Ox 97.9 F 68 18 141/88 99 03/07/17 09:21 03/07/17 09:21 03/07/17 09:21 03/07/17 09:21 03/06/17 15:37 - Medications Medications: Current Medications Albuterol/Ipratropium (Duoneb 3 Mg/0.5 Mg (3 Ml) Ud) 3 ml INH RQ6 [facility] Last Admin: 03/07/17 14:13 Dose: Not Given Amlodipine Besylate (Norvasc) 5 mg PO DAILY [facility] Last Admin: 03/07/17 10:05 Dose: 5 mg Aspirin (Ecotrin) 81 mg PO DAILY [facility] Last Admin: 03/07/17 10:05 Dose: 81 mg Budesonide (Pulmicort Respules) 0.5 mg INH RQ12 [facility] Last Admin: 03/07/17 14:13 Dose: Not Given Clonazepam (Klonopin) 0.5 mg PO BID [facility] Last Admin: 03/07/17 10:05 Dose: 0.5 mg Escitalopram Oxalate (Lexapro) 20 mg PO DAILY [facility] Last Admin: 03/07/17 10:05 Dose: 20 mg Famotidine (Pepcid) 20 mg PO BID [facility] Last Admin: 03/07/17 10:05 Dose: 20 mg Gabapentin (Neurontin) 300 mg PO BID [facility] Last Admin: 03/07/17 12:00 Dose: 300 mg Ibuprofen (Motrin Tab) 600 mg PO Q6H PRN PRN Reason: Pain, moderate (4-7) Lisinopril (Zestril) 5 mg PO DAILY [facility] Last Admin: 03/07/17 10:05 Dose: 5 mg Lorazepam (Ativan) 0.5 mg PO Q6 PRN PRN Reason: Agitation Last Admin: 03/07/17 01:38 Dose: 0.5 mg Mirtazapine (Remeron) 15 mg PO [facility] Last Admin: 03/06/17 21:22 Dose: 15 mg Prednisone (Prednisone Tab) 10 mg PO BID [facility] Last Admin: 03/07/17 10:05 Dose: 10 mg Quetiapine Fumarate (Seroquel) 100 mg PO HS [facility] Last Admin: 03/06/17 21:22 Dose: 100 mg Tiotropium [place] (Spiriva) 18 mcg INH RQ24 [facility] Last Admin: 03/07/17 12:29 Dose: 18 mcg - Labs Labs: 03/07/17 08:53 03/06/17 07:54 - Constitutional Appears: No Acute Distress - Head Exam Head Exam: NORMAL INSPECTION, NORMOCEPHALIC - Eye Exam Eye Exam: EOMI, Normal appearance - ENT Exam ENT Exam: Mucous Membranes Moist - Neck Exam Neck Exam: Full ROM, Normal Inspection - Respiratory Exam Respiratory Exam: Accessory Muscle Use, Decreased Breath Sounds, Rhonchi, Wheezes. absent: Clear to Ausculation Bilateral - Cardiovascular Exam Cardiovascular Exam: REGULAR RHYTHM, +S1, +S2 - GI/Abdominal Exam GI & Abdominal Exam: Soft, Normal Bowel Sounds. absent: Tenderness - Extremities Exam Extremities Exam: Full ROM, Normal Inspection. absent: Calf Tenderness, Pedal Edema, Tenderness - Neurological Exam Neurological Exam: Alert, Awake, Oriented x3 - Psychiatric Exam Psychiatric exam: Depressed, Normal Affect - Skin Skin Exam: Dry, Intact, Normal Color, Warm Assessment and Plan (1) COPD exacerbation Assessment & Plan: Patient is stable. Medicine is signing off. Please reconsult of necessary. Chest Xray (03/03/17)- no active disease Duoneb 3ml ING Q6 Discontinue Methyprednisolone 50mg IV Q6 (03/06/17) Decreased Prednisone to 10mg PO once daily Pulmicort 0.5 INH Q12 (home med) Spiriva 18mcg ING Q24 (home med) Tiotropium [place] 1 inhaler INH once Status: Acute (2) Sciatica Assessment & Plan: Gabapentin 100mg PO TID Percocet 5/325mg Q6 prn for pain Status: Acute (3) Chest pain Assessment & Plan: Resolved ROMIs x 3 negative EKG- normal Percocet 5/325mg Tab Q6 PRN Status: Resolved (4) HTN (hypertension) Assessment & Plan: Norvasc 5mg PO daily (home med) Lisinopril 5mg PO daily (home med) Monitor BP Heart healthy diet, 2Na diet Status: Chronic (5) Depression with anxiety Assessment & Plan: Xanax 0.5mg PO TID PRN Lexapro 10mg PO Daily (home med) Remeron 7.5mg PO HS (home med) Seroquel 100mg PO HS Consult Psychiatry- Dr. Palencia, help appreciated. Patient transferred to Psych department on 03/06/17 Medicine Signing off as of 03/07/17. Please reconsult if necessary. Status: Acute (6) Hypokalemia Assessment & Plan: Potassium on 03/04/17- 3.2, on 03/06/17- 3.5 K-Dur 40mEq PO once (03/04/17) K-Dur 20mEq PO once (03/04/17) Status: Acute (7) Prophylactic measure Assessment & Plan: SCDs Heart Healthy Diet ASA 81mg daily Pepcid 20mg BID Heparin 5,000 SC BID Status: Acute <Daren Strickland H - Last Filed: 03/08/17 08:59> Objective - Vital Signs/Intake and Output Vital Signs (last 24 hours): Temp Pulse Resp BP Pulse Ox 97.5 F L 59 L 20 139/80 99 03/08/17 08:23 03/08/17 08:23 03/08/17 08:23 03/08/17 08:23 03/06/17 15:37 - Medications Medications: Current Medications Albuterol/Ipratropium (Duoneb 3 Mg/0.5 Mg (3 Ml) Ud) 3 ml INH RQ6 [facility] Last Admin: 03/08/17 07:49 Dose: Not Given Amlodipine Besylate (Norvasc) 5 mg PO DAILY [facility] Last Admin: 03/07/17 10:05 Dose: 5 mg Aspirin (Ecotrin) 81 mg PO DAILY [facility] Last Admin: 03/07/17 10:05 Dose: 81 mg Budesonide (Pulmicort Respules) 0.5 mg INH RQ12 [facility] Last Admin: 03/08/17 07:49 Dose: Not Given Clonazepam (Klonopin) 0.5 mg PO BID [facility] Last Admin: 03/07/17 17:15 Dose: 0.5 mg Escitalopram Oxalate (Lexapro) 20 mg PO DAILY [facility] Last Admin: 03/07/17 10:05 Dose: 20 mg Famotidine (Pepcid) 20 mg PO BID [facility] Last Admin: 03/07/17 17:15 Dose: 20 mg Gabapentin (Neurontin) 300 mg PO BID [facility] Last Admin: 03/07/17 17:15 Dose: 300 mg Ibuprofen (Motrin Tab) 600 mg PO Q6H PRN PRN Reason: Pain, moderate (4-7) Lisinopril (Zestril) 5 mg PO DAILY [facility] Last Admin: 03/07/17 10:05 Dose: 5 mg Lorazepam (Ativan) 0.5 mg PO Q6 PRN PRN Reason: Agitation Last Admin: 03/08/17 02:55 Dose: 0.5 mg Mirtazapine (Remeron) 30 mg PO [facility] Last Admin: 03/07/17 21:08 Dose: 30 mg Oxycodone/Acetaminophen (Percocet 5/325 Mg Tab) 1 tab PO Q6H PRN PRN Reason: Pain, severe (8-10) Stop: 03/10/17 15:21 Last Admin: 03/08/17 06:45 Dose: 1 tab Prednisone (Prednisone Tab) 10 mg PO DAILY [facility] Quetiapine Fumarate (Seroquel) 100 mg PO [facility] Last Admin: 03/07/17 21:08 Dose: 100 mg Tiotropium [place] (Spiriva) 18 mcg INH RQ24 [facility] Last Admin: 03/08/17 07:47 Dose: 18 mcg - Labs Labs: 03/07/17 08:53 03/06/17 07:54 Attending/Attestation - Attestation I have personally seen and examined this patient.: Yes I have fully participated in the care of the patient.: Yes I have reviewed all pertinent clinical information, including history, physical exam and plan: Yes Notes (Text): 03/08/17 08:57 Patient asked for 120 tablets of Percocet. She wanted the larger dose of Percocet as well. I made it very clear that the patient that she came in acutely short of breath and this is why he was not initially given any type of narcotic pain medication Furthermore she wants to go to [place] and I was very clear to her that I did not feel comfortable giving a large amount of Percocet because of her telling me that she wants to go to [place] and I pointed out to her that there has been a rather large problem of opiate abuse particularly in [place]. The patient was crying, emotional, upset, complaining that she was always in pain and nobody was helping her For the record it needs to be pointed out that in the past she's gone back and forth between [place]. However this occasion she's been asking for large amounts of narcotic pain medication - which is a change from before. She was given a prescription for 5 day supply of Percocet with no refill. She was not happy with this however I explained to her that we could not give her more than this.
[2017-03-07] MEDS: Oxycodone/Acetaminophen 5/325 mg Tab PO PRN ×2 (15:47→21:54)
--- NOTE | 2017-03-07 19:12 | PCM.PYCHPN ---
Psychiatric Progress Note - Psychiatric Progress Note Patient seen today, length of contact: 15 min Patient Chief Complaint: ' I m feeling very depressed.' Problems Identified/Issues Discussed: Patient seen and evaluated, chart reviewed and discussed with the nurse. Patient was transferred from the medical floor Staff reports that patient remained isolated and withdrawn and remained depressed and tearful. Patient still reports depressed mood and reports at times feelings of hopelessness or helplessness. She remained tearful about the of her daughter and does not contract for safety. She needs some more time for stabilization. She is compliant with her medications and denies any side effects. Supportive therapy and psychoeducation were given. Medication Change: Yes (Increase Remeron) Medical Record Reviewed: Yes Mental Status Examination - Cognitive Function Orientation: Person, Place, Situation, Time Memory: Intact Attention: Poor Concentration: WNL Association: WNL Fund of Knowledge: Poor - Mood Mood: Depressed, Anxious - Affect Affect: Constricted, Depressed - Speech Speech: Soft - Formal Thought Process Formal Thought Process: No Impairment - Suicidal Ideation Suicidal Ideation: Yes - Homicidal Ideation Homicidal Ideation: No Goal/Treatment Plan - Goal/Treatment Plan Need for Continued Stay: Discharge may exacerbated symptoms, Severe functional impairment Progress Toward Problem(s) and Goals/Treatment Plan: Major depressive disorder recurrent severe without psychotic features CBT Psychoeducation Seroquel 100 mg Increase Remeron to 30 mg po QHS Gabapentin 300 mg PO TID Lexapro 20 mg PO Daily Klonopin 0.5 mg PO BID Alcohol use disorder in remission CBT Psychoeducation Use [place] for abstinence
[2017-03-08] MEDS: Albuterol-Ipratrop 3 mg / 0.5 (3 ml) UD INH SCH ×2 (02:53→07:49)
[2017-03-08] MEDS: Oxycodone/Acetaminophen 5/325 mg Tab PO PRN (06:45)
[2017-03-08] MEDS: Tiotropium 18 mcg Cap For Inhalation INH SCH (07:47)
[2017-03-08] MEDS: Budesonide 0.5 mg/2 ml Inhal Susp UD INH SCH (07:49)
[2017-03-08 08:24] VITALS: BP 139/80; PULSE 59; RESP 20; TEMP 97.5
--- NOTE | 2017-03-08 10:32 | PCM.PYCHDC ---
Mental Status Examination - Mental Status Examination Orientation: Person, Place, Situation, Time Memory: Intact Mood: Depressed (less depressed), Anxious Affect: Constricted Speech: Appropriate Attention: WNL Concentration: WNL Association: WNL Fund of Knowledge: WNL Formal Thought Process: No Impairment Description of patient's judgement and insight: good, fair Psychotic Thoughts and Behaviors: denies any AVH Suicidal Ideation: No Current Homicidal Ideation?: No Discharge Summary - Discharge Note Reason for Hospitalization: This is a 61 y/o HF who lives with her daughter, unemployed on SSD, came to the ED for shortness of breath. Today pt was consulted because of depressed mood. Pt reports past history of depression but denies any history of any inpatient psychiatric hospitalization. She states that her young daughter just a couple of months ago. Since then she is becoming increasingly depressed. She reports depressed mood, feelings of hopelessness and helplessness. She also reports recent vague thoughts of suicide, but denies active suicide plan/ intent. Pt denies any prior hx of suicide ideation or any attempts. She denies any manic or psychotic symptoms. She reports past history of drinking but denies any active drinking and drugs. Consultations:: List each consultation separately and include: 1. Reason for request. 2. Findings. 3. Follow-up Summary of Hospital Course include:: 1. Description of specific treatment plan utilized for patients during their course of treatmen. 2. Summarize the time- course for resolution of acute symptoms and/or regressed behaviors. 3. Describe issues identified and worked on during hospitalization. 4. Describe medication utilized. 5. Describe medical problems identified and treated. 6. Reassessment of suicide risk Summary of Hospital Course: During the course of her stay, patient (pt) started progressively improving and she no longer remained anxious, depressed and suicidal. Her mood was getting better and she started attending groups and meetings and started socializing. The doses of her medications were maximized and patient denied any feelings of hopelessness, helplessness, and worthlessness, denied any problem with the sleep or appetite, denied suicidal ideation or homicidal ideation. Pt denied any auditory or visual hallucinations. Patient reported improvement in her mood and tolerated these medications very well and denied any side effects. - Final Diagnosis (DSM 5) Condition upon Discharge: STABLE DSM 5: Major depressive disorder recurrent severe without psychotic features Alcohol use disorder in remission Disposition: HOME/ ROUTINE Follow-up Treatment Plan: Education: Pt was educated and counseled about the risks and benefits of taking and not taking medications. Pt was educated and counseled about the risks of drinking and abusing drugs. Pt was educated and counseled to go to the ER or call 911 if pt develop suicidal ideation or homicidal ideation, worsening of symptoms or severe side effects of the meds. Prescriptions/Medication Reconciliation: Escitalopram [Lexapro] 20 mg PO DAILY #30 tab Gabapentin [Neurontin] 100 mg PO TID #90 cap hydrOXYzine HCl [Atarax] 25 mg PO BID #60 tab Mirtazapine [Remeron] 30 mg PO HS #30 tab - Smoking Cessation Smoking Cessation Medication prescribed: No - Antipsychotic Medications Pt discharged on 2 or more routine antipsychotic medications: No
== END 2017-03-08 11:15 | disposition home or self-care (01) | DRG 191 ==
LOC: C.ER 09:31 → C.9E 13:30 → C.6T 15:02 → OBSVTOIN 18:01 → C.6T 19:35 → C.5E 03-06 20:44
PROVIDERS: ADMIT Psychiatry & Neurology Psychiatry; ATTEND Psychiatry & Neurology Psychiatry
PROC: GZ58ZZZ Individual Psychotherapy, Cognitive-Behavioral (ICD-10-PCS; principal; 2017-03-03)
DX: J44.1 Chronic obstructive pulmonary disease with (acute) exacerbation (principal); F33.2 Major depressive disorder, recurrent severe without psychotic features; I10 Essential (primary) hypertension; F41.8 Other specified anxiety disorders; F17.210 Nicotine dependence, cigarettes, uncomplicated; M54.30 Sciatica, unspecified side; E87.6 Hypokalemia

== ENCOUNTER 2017-03-08 23:11 | Inpatient (IN) | payer MEDICAID, OTHER ==
[2017-03-08 23:11] VITALS: BMI 18.6
[2017-03-08] MEDS ORDERED: Sodium Chloride 0.9% 1,000 ML IV ONE ×2 (23:50→23:51)
[2017-03-09 00:10] LABS: BASO % 0.2 % (0.0-2.0); EOS # 0.1 K/uL (0.0-0.7); EOS % 0.4 % (0.0-4.0); HEMOGLOBIN 10.7 g/dL (11.0-16.0); LYMPH # 2.7 K/uL (1.0-4.3); LYMPH % 12.2 % (20.0-40.0); MEAN CELL VOLUME 96.2 fL (81.0-99.0); MEAN CORPUSCULAR HEMOGLOBIN 29.8 pg (27.0-31.0); MEAN PLATELET VOLUME 7.6 fL (7.2-11.7); MONO # 1.6 K/uL (0.0-0.8); MONO % 7.1 % (0.0-10.0); NEUT # 17.6 K/uL (1.8-7.0); NEUT % 80.1 % (50.0-75.0); NRBC % 0.1 % (0.0-2.0); RBC 3.59 Mil/uL (3.80-5.20); RED CELL DISTRIBUTION WIDTH 16.7 % (11.5-14.5); WHITE BLOOD COUNT 21.9 K/uL (4.8-10.8)
[2017-03-09 00:22] LABS: ALB/GLOB RATIO 1.4 (1.0-2.1); AST/SGOT 33 U/L (14-36); BLOOD UREA NITROGEN 42 mg/dL (7-17); GFR AFRICAN-AMERICAN 43; GFR NON-AFRICAN AMERICAN 35
[2017-03-09 00:23] LABS: ALT/SGPT 49 U/L (9-52); CALCIUM 7.7 mg/dl (8.6-10.4); INR 0.9; PROTHROMBIN TIME 9.6 SECONDS (9.7-12.2)
[2017-03-09 00:32] LABS: CK-MB 2.52 ng/mL (0.0-3.38)
[2017-03-09] MEDS ORDERED: Sodium Chloride 0.9% 1,000 ML IV ONE (01:01)
[2017-03-09 01:32] LABS: VENOUS BLOOD GAS PCO2 55 mmHg (40-60); VENOUS BLOOD GAS PO2 23 mm/Hg (30-55); VENOUS BLOOD PH 7.15 (7.32-7.43)
--- NOTE | 2017-03-09 01:34 | C.PDOC ---
<Renuka Dahl - Last Filed: 03/09/17 01:43> <Obi Xavier - Last Filed: 03/09/17 03:56> Time Seen by Provider: 03/08/17 23:28 Chief Complaint (Nursing): Female Genitourinary Past Medical History - Medical History PMH: Anxiety, Arthritis, Asthma, COPD, Depression, Emphysema, HTN Denies: Chronic Kidney Disease Surgical History: Appendectomy Family History: States: Unknown Family Hx - Social History Hx Tobacco Use: Yes Hx Alcohol Use: No Hx Substance Use: Yes - Immunization History Hx Tetanus Toxoid Vaccination: No Hx Influenza Vaccination: No Hx Pneumococcal Vaccination: No <Renuka Dahl - Last Filed: 03/09/17 01:43> ED Course And Treatment - Laboratory Results Result Diagrams: 03/09/17 00:00 03/09/17 00:00 O2 Sat by Pulse Oximetry: 100 Progress Note: Blood work, CT scan ordered. Blood obtained by arterial stick - right brachial artery (by me). peripheral IV access on right lower leg placed by me. IV NS bolus x 2 given. 1:00am- Patient signed out to Dr. xavier pending reassess, CT scan. Bp improving with IV fluids, Hgb 10.7 and no active bleeding - no transfusion needed at this time. <Renuka Dahl - Last Filed: 03/09/17 01:43> - Laboratory Results Result Diagrams: 03/09/17 00:00 03/09/17 00:00 Lab Interpretation: Abnormal (leukocytosis ? related to chronic PO steroids) Urine POC: Negative ECG: Interpreted By Me ECG Rhythm: Sinus Rhythm Pulse Ox Interpretation: Normal - Radiology CXR: Interpreted by Me CXR Interpretation: Yes: No Acute Disease Reevaluation Time: 03:51 Reassessment Condition: Improved (pain free, normotensive,) - Physician Consult Information Outcome Of Conversation: 0350: d/w Dr. Calderon, Hospitalist Ar[employer]ist Representative- ok to Tele Obs. <Obi Xavier - Last Filed: 03/09/17 03:56> Medical Decision Making <Renuka Dahl - Last Filed: 03/09/17 01:43> <Obi Xavier - Last Filed: 03/09/17 03:56> Medical Decision Making: scant stool on rectal exam, but guaic positive- probably related to rectal lesion/cancer with mild bleeding tendencies. HGB stable few scant BM's with blood streaking in ED follow CBC and GI consult. chronic leukocytosis prob due to chronic PO steroids, defer ABX for no source identified at this time. (Obi Xavier) Disposition <Renuka Dahl - Last Filed: 03/09/17 01:43> Doctor Will See Patient In The: Hospital Counseled Patient/Family Regarding: Studies Performed, Diagnosis - Disposition Disposition Time: 03:54 <Obi Xavier - Last Filed: 03/09/17 03:56> - Disposition Disposition: HOSPITALIZED Condition: FAIR - Clinical Impression Clinical Impression: Rectal adenocarcinoma, Rectal bleeding
[2017-03-09] MEDS ORDERED: Albuterol HFA 90 mcg/actuation (8 g) IH PRN (05:13)
[2017-03-09] MEDS: Sodium Chloride 0.9% 1,000 ML IV SCH ×3 (05:49→23:55)
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
[2017-03-09] MEDS ORDERED: Sodium Chloride 0.9% 500 ML IV ONE (07:32)
--- NOTE | 2017-03-09 07:40 | PCM.RRTMUL ---
[facility]MON[facility] SOR[facility] Nurses Assessment - Situation [facility] Reason for Call: Hypotension - IV IV Inserted during ALMON[facility] SORTER?: Yes IV Fluids Initiated During ALMOND SORTER?: 500CC BOLUS New IV Insertion Tolerance:: Fair - Respiratory Oxygen Delivery Method:: Nasal Cannula - Vital Signs Pulse Rate:: 81 I.Reason for ALMOND SORTER - A) Acute Change in Patient: (Select all that apply): Acute change in SBP below (75/46) Subjective: Rapid response was called at 07:20 due to Hypotension and AMS. Upon walking into the room, patient was extremely lethargic, disoriented, and weak. She reports extensive BRBPR prior to admission (10-12 episodes). Vitals read BP 75/ 46, HR81, T98.7, RR20, O2 sat 96%. Glucose 91. Patient was given NS 500cc bolus and UDS ordered. Vitals 10 minutes later read BP 81/45, HR 80, T98.7, RR 16, O2 sat 98%. Patient more alert. Admits to abdominal pain (chronic) and lightheadedness. Denies f/c, chest pain, SOB, LE edema, or any additional complaints. AAOx3. - A) Initial Vital Signs: Blood Pressure: 75/46 Pulse Rate: 81 Respiratory Rate: 20 Temperature: 98.7 F O2 Sat by Pulse Oximetry: 98 Finger Stick Blood Glucose: 91 - B) Neurological Status (Select all that apply): Disoriented, Lethargic, Weakness - C) Respiratory Oxygen Delivery Method: Nasal Cannula @L/min (3) - Constitutional Appears: Non-toxic, In Acute Distress - Head Head Exam: ATRAUMATIC, NORMAL INSPECTION - Eyes Eye Exam: EOMI, Normal appearance - Respiratory Exam Respiratory Exam: Clear to Ausculation Bilateral, NORMAL BREATHING PATTERN. absent: Wheezes - Cardiovascular Exam Cardiovascular Exam: Tachycardia, +S1, +S2 - GI/Abdominal Exam GI & Abdominal Exam: Soft, Tenderness - Neurological Exam Neurological Exam: Altered, Awake (lethargic), Oriented x3 - Extremities Exam Extremities Exam: Normal Inspection. absent: Pedal Edema, Tenderness Plan - A. End of ALMOND SORTER Vital Signs: Blood Pressure: 81/45 Pulse Rate: 80 Respiratory Rate: 16 Temperature: 98.7 F O2 Sat by Pulse Oximetry: 98 - B. Assessment of Findings&Treatment Plan Hypotension, Anemia * f/u CBC, CMP * f/u UDS * IVF 500cc bolus * consider narcan if no improvement * 2u PRBC ordered for possible administration
[2017-03-09] MEDS: Budesonide 0.5 mg/2 ml Inhal Susp UD INH SCH ×2 (07:44→19:45)
[2017-03-09] MEDS: Tiotropium 18 mcg Cap For Inhalation INH SCH (07:45)
[2017-03-09 08:09] LABS: BASO % 0.2 % (0.0-2.0); EOS % 0.3 % (0.0-4.0); HEMOGLOBIN 9.5 g/dL (11.0-16.0); LYMPH # 1.2 K/uL (1.0-4.3); LYMPH % 7.8 % (20.0-40.0); MEAN CELL VOLUME 95.5 fL (81.0-99.0); MEAN CORPUSCULAR HEMOGLOBIN 30.6 pg (27.0-31.0); MEAN CORPUSCULAR HGB CONC 32.1 g/dL (33.0-37.0); MEAN PLATELET VOLUME 7.5 fL (7.2-11.7); MONO % 12.4 % (0.0-10.0); NEUT # 12.7 K/uL (1.8-7.0); NEUT % 79.3 % (50.0-75.0); NRBC % 0.1 % (0.0-2.0); PLATELET COUNT 146 K/uL (130-400); RED CELL DISTRIBUTION WIDTH 16.8 % (11.5-14.5)
[2017-03-09 08:23] LABS: ALBUMIN 2.3 g/dL (3.5-5.0)
[2017-03-09 08:26] LABS: AST/SGOT 31 U/L (14-36); BLOOD UREA NITROGEN 27 mg/dL (7-17); GFR AFRICAN-AMERICAN > 60; GFR NON-AFRICAN AMERICAN > 60
[2017-03-09 08:27] LABS: ALB/GLOB RATIO 1.2 (1.0-2.1); ALT/SGPT 48 U/L (9-52); CALCIUM 6.6 mg/dl (8.6-10.4); MAGNESIUM 1.7 mg/dL (1.6-2.3)
--- NOTE | 2017-03-09 09:14 | CT ---
PROCEDURE: CT Abdomen and Pelvis without intravenous contrast HISTORY: ABD PAIN, RECTAL BLEEDING COMPARISON: None. TECHNIQUE: CT scan of the abdomen and pelvis was performed without administration of intravenous or oral contrast. Coronal and sagittal reformatted images were obtained. Radiation dose: Total exam DLP = 192.11 mGy-cm. This CT exam was performed using one or more of the following dose reduction techniques: Automated exposure control, adjustment of the mA and/or kV according to patient size, and/or use of iterative reconstruction technique. FINDINGS: LOWER THORAX: There are numerous tiny calcified and noncalcified nodules in the lower lobes. There is bibasilar atelectasis/scarring. LIVER: The liver is normal in size. There is an anterior diaphragmatic hernia with partial herniation of the hepatic dome. No gross lesion or ductal dilatation. GALLBLADDER AND BILE DUCTS: No calcified gallstones. PANCREAS: Normal in size. No gross lesion or ductal dilatation. SPLEEN: Normal in size. ADRENALS: Both adrenal glands are normal in size without discrete nodule. . KIDNEYS AND URETERS: Both kidneys are normal in size without nephrolithiasis. No hydronephrosis. No solid mass. VASCULATURE: No aortic aneurysm. BOWEL: The small bowel loops are normal in caliber. There is a left posterolateral hernia through the posterolateral abdominal wall with herniation of portion of the proximal descending colon. Fluid-filled colon is normal in caliber. No evidence of obstruction. APPENDIX: Normal appendix. PERITONEUM: No free fluid. No free air. LYMPH NODES: No enlarged lymph nodes. BLADDER: Well distended and normal in appearance. REPRODUCTIVE: The uterus is normal. BONES: No acute fracture. Moderate degenerative disc disease at L4-5 with grade 1 anterior listhesis of L4 on L5. OTHER FINDINGS: Nodular soft tissue densities in the subcutaneous fat most compatible with injection granulomas. IMPRESSION: Fluid filled small bowel loops and colon without evidence of bowel wall thickening or bowel obstruction could be related to nonspecific gastroenteritis. Left posterolateral abdominal wall hernia with herniation of a portion of proximal descending colon. No evidence of incarceration. A preliminary report was provided by [facility].
[2017-03-09 09:28] LABS: ANISOCYTOSIS SLIGHT; BANDS 9 % (0-2); EOSINOPHIL 1 % (0-4); HYPOCHROMIC SLIGHT; LYMPHOCYTE 19 % (20-40); MONOCYTE 8 % (0-10); NEUTROPHIL 63 % (50-75); PLATELET ESTIMATE NORMAL (NORMAL); TOTAL CELLS COUNTED 100
[2017-03-09 09:48] LABS: ABG ALLEN TEST YES; ARTERIAL BLOOD GAS HCO3 18.3 mmol/L (21-28); ARTERIAL BLOOD GAS O2 SAT 99.7 % (95-98); ARTERIAL BLOOD GAS PCO2 35 mm/Hg (35-45); ARTERIAL BLOOD GAS PO2 86 mm/Hg (80-100); ARTERIAL BLOOD GAS TCO2 18.3 mmol/L (22-28)
--- NOTE | 2017-03-09 09:59 | RAD ---
PROCEDURE: CHEST RADIOGRAPH, 1 VIEW HISTORY: GI bleed COMPARISON: None available. FINDINGS: LUNGS: The lungs are well inflated and clear. PLEURA: No pneumothorax or pleural fluid seen. CARDIOVASCULAR: The heart is normal in size. Atherosclerotic aortic arch calcifications are present. With OSSEOUS STRUCTURES: No significant abnormalities. VISUALIZED UPPER ABDOMEN: Normal. OTHER FINDINGS: None. IMPRESSION: No active pulmonary disease.
[2017-03-09 11:27] LABS: SQUAMOUS EPITHIAL 2 /hpf (0-5); URINE BACTERIA RARE (<OCC); URINE BILIRUBIN NEGATIVE (NEGATIVE); URINE BLOOD 3+ (NEGATIVE); URINE CLARITY Clear (Clear); URINE COLOR Yellow (YELLOW); URINE GLUCOSE (UA) NORMAL (Normal); URINE LEUKOCYTE ESTERASE 3+ Leu/uL (Negative); URINE NITRATE NEGATIVE (NEGATIVE); URINE PROTEIN 1+ mg/dL (NEGATIVE); URINE UROBILINOGEN NORMAL mg/dL (0.2-1.0)
[2017-03-09 11:31] LABS: BENZODIAZEPINES, UR NEGATIVE (NEGATIVE)
[2017-03-09 11:32] LABS: BARBITURATES, UR NEGATIVE (NEGATIVE)
[2017-03-09 11:36] LABS: PHENCYCLIDINE, UR NEGATIVE (NEGATIVE)
[2017-03-09 12:48] LABS: OPIATES, UR POSITIVE (NEGATIVE)
[2017-03-09] MEDS ORDERED: Dextrose 5%/0.45% NS 1,000 ML IV SCH (13:00)
[2017-03-09] MEDS ORDERED: Bisacodyl 5mg EC Tab PO ONE ×2 (17:00)
[2017-03-09] MEDS ORDERED: Peg-Electrolyte Oral Soln 4L (Golytely) PO ONE ×2 (19:00→19:08)
[2017-03-09 21:18] LABS: HEMOGLOBIN 9.9 g/dL (11.0-16.0); MEAN CELL VOLUME 97.5 fL (81.0-99.0); MEAN CORPUSCULAR HEMOGLOBIN 30.1 pg (27.0-31.0); MEAN CORPUSCULAR HGB CONC 30.8 g/dL (33.0-37.0); MEAN PLATELET VOLUME 7.5 fL (7.2-11.7); RBC 3.31 Mil/uL (3.80-5.20); RED CELL DISTRIBUTION WIDTH 17.2 % (11.5-14.5); WHITE BLOOD COUNT 11.8 K/uL (4.8-10.8)
[2017-03-10] MEDS: Sodium Chloride 0.9% 1,000 ML IV SCH ×3 (01:15→21:26)
[2017-03-10 07:34] LABS: BASO % 0.2 % (0.0-2.0); EOS # 0.1 K/uL (0.0-0.7); EOS % 0.4 % (0.0-4.0); HEMOGLOBIN 11.6 g/dL (11.0-16.0); LYMPH # 1.9 K/uL (1.0-4.3); LYMPH % 14.4 % (20.0-40.0); MEAN CELL VOLUME 95.7 fL (81.0-99.0); MEAN CORPUSCULAR HEMOGLOBIN 30.8 pg (27.0-31.0); MEAN CORPUSCULAR HGB CONC 32.1 g/dL (33.0-37.0); MEAN PLATELET VOLUME 7.7 fL (7.2-11.7); MONO # 1.5 K/uL (0.0-0.8); MONO % 11.2 % (0.0-10.0); NEUT % 73.8 % (50.0-75.0); RBC 3.77 Mil/uL (3.80-5.20); RED CELL DISTRIBUTION WIDTH 17.3 % (11.5-14.5); WHITE BLOOD COUNT 13.5 K/uL (4.8-10.8)
[2017-03-10 07:52] LABS: AST/SGOT 39 U/L (14-36); GFR AFRICAN-AMERICAN > 60; GFR NON-AFRICAN AMERICAN > 60
[2017-03-10 07:53] LABS: ALT/SGPT 51 U/L (9-52); MAGNESIUM 1.9 mg/dL (1.6-2.3)
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
--- NOTE | 2017-03-10 08:11 | CP.PCM.PN ---
Subjective - Date & Time of Evaluation Date of Evaluation: 03/10/17 Time of Evaluation: 08:09 - Subjective Subjective: Brief Endoscopy note: Called at 7:45 this morning prior to 8:00 am colonoscopy and notified that patient only drank 500cc of the 4000cc of Gol[place] last evening. I was not notified by the nursing staff or the electric distribution checker resident staff who was notified of this according to the nurse this morning. Unable to give alternative preparation though an enema revealed essentailly a"clear" stool per staff. Colonoscopy: Acute colitis with exudate vs pseudomembranes highly suggestive of C diff. Stool specimens and biopsies taken. Scope only advanced to splenic flexure. Begin Flagyl 250mg QID. Objective - Vital Signs/Intake and Output Vital Signs (last 24 hours): Temp Pulse Resp BP Pulse Ox 99 F 85 18 134/80 95 03/10/17 07:45 03/10/17 07:45 03/10/17 07:45 03/10/17 07:45 03/10/17 07:45 - Medications Medications: Current Medications Acetaminophen (Tylenol 325mg Tab) 650 mg PO Q6 PRN PRN Reason: Fever >100.4 F Last Admin: 03/09/17 22:42 Dose: 650 mg Albuterol (Ventolin Hfa 90 Mcg/Actuation (8 G)) 1 puff IH RQ4 PRN PRN Reason: Shortness of Breath Last Admin: 03/09/17 07:45 Dose: 1 puff Budesonide (Pulmicort Respules) 0.5 mg INH RQ12 [facility] Last Admin: 03/09/17 19:45 Dose: Not Given Escitalopram Oxalate (Lexapro) 20 mg PO DAILY [facility] Last Admin: 03/09/17 10:38 Dose: Not Given Famotidine (Pepcid) 20 mg IVP Q12 [facility] Last Admin: 03/09/17 21:56 Dose: 20 mg Gabapentin (Neurontin) 100 mg PO TID [facility] Last Admin: 03/09/17 21:00 Dose: 100 mg Hydroxyzine HCl (Atarax) 25 mg PO BID [facility] Last Admin: 03/09/17 21:08 Dose: 25 mg Sodium Chloride (Sodium Chloride 0.9%) 1,000 mls @ 100 mls/hr IV .Q10H [facility] Last Admin: 03/10/17 01:15 Dose: Not Given Ibuprofen (Motrin Tab) 800 mg PO BID [facility] Last Admin: 03/09/17 21:00 Dose: Not Given Mirtazapine (Remeron) 30 mg PO HS [facility] Last Admin: 03/09/17 21:56 Dose: 30 mg Quetiapine Fumarate (Seroquel) 100 mg PO HS [facility] Last Admin: 03/09/17 22:41 Dose: 100 mg Tiotropium [place] (Spiriva) 18 mcg INH RQ24 [facility] Last Admin: 03/09/17 07:45 Dose: 18 mcg - Labs Labs: 03/10/17 07:26 03/09/17 07:44 PT 9.6 SECONDS (9.7-12.2) L 03/09/17 00:00 INR 0.9 03/09/17 00:00 APTT 25 SECONDS (21-34) 03/09/17 00:00 Assessment and Plan (1) Hematochezia Status: Acute (2) Acute blood loss anemia Status: Acute (3) H/O malignant neoplasm of rectum Status: Acute
[2017-03-10] MEDS: Tiotropium 18 mcg Cap For Inhalation INH SCH (08:33)
[2017-03-10] MEDS: Budesonide 0.5 mg/2 ml Inhal Susp UD INH SCH ×2 (08:33→19:00)
[2017-03-10 08:34] LABS: ALB/GLOB RATIO 1.2 (1.0-2.1)
[2017-03-10 08:35] LABS: BLOOD UREA NITROGEN 7 mg/dL (7-17); CALCIUM 8.2 mg/dl (8.6-10.4)
[2017-03-10] MEDS ORDERED: Propofol 10 mg/ml Inj (20 ML) ONE (09:47)
--- NOTE | 2017-03-10 11:50 | CP.PCM.PN ---
Subjective - Date & Time of Evaluation Date of Evaluation: 03/10/17 Time of Evaluation: 11:30 - Subjective Subjective: Patient returned from colonscopy this morning. Appreciate GI seeing patient. Flagyl has been started, concern for acute colitis /C Diff. Increasing IVF, there is a diet for later today. Her Hgb was better today. She is also more alert awake, back at her previous mental state. Yesterday was very drousy and likely this was from the large dose of fentany she got in the ER. The patient was asking for more pain medications. As mentioned previously she was asking for huge quantity of percocet when in detox 5E recently, a search on the [employer] Prescription Monitoring system did not show anything suspicious so far. Objective - Vital Signs/Intake and Output Vital Signs (last 24 hours): Temp Pulse Resp BP Pulse Ox 98 F 77 20 118/76 96 03/10/17 10:52 03/10/17 10:52 03/10/17 10:52 03/10/17 10:52 03/10/17 10:52 Intake and Output: 03/10/17 03/10/17 06:59 18:59 Intake Total 150 Balance 150 - Medications Medications: Current Medications Acetaminophen (Tylenol 325mg Tab) 650 mg PO Q6 PRN PRN Reason: Fever >100.4 F Last Admin: 03/09/17 22:42 Dose: 650 mg Albuterol (Ventolin Hfa 90 Mcg/Actuation (8 G)) 1 puff IH RQ4 PRN PRN Reason: Shortness of Breath Last Admin: 03/09/17 07:45 Dose: 1 puff Budesonide (Pulmicort Respules) 0.5 mg INH RQ12 [facility] Last Admin: 03/10/17 08:33 Dose: Not Given Escitalopram Oxalate (Lexapro) 20 mg PO DAILY [facility] Last Admin: 03/10/17 11:00 Dose: 20 mg Famotidine (Pepcid) 20 mg IVP Q12 [facility] Last Admin: 03/10/17 11:00 Dose: 20 mg Gabapentin (Neurontin) 100 mg PO TID [facility] Last Admin: 03/10/17 11:00 Dose: 100 mg Hydroxyzine HCl (Atarax) 25 mg PO BID [facility] Last Admin: 03/10/17 11:00 Dose: Not Given Sodium Chloride (Sodium Chloride 0.9%) 1,000 mls @ 125 mls/hr IV .Q8H [facility] Ibuprofen (Motrin Tab) 800 mg PO BID [facility] Last Admin: 03/10/17 11:00 Dose: Not Given Metronidazole (Flagyl) 500 mg PO Q8 [facility] Last Admin: 03/10/17 11:00 Dose: 500 mg Mirtazapine (Remeron) 30 mg PO [facility] Last Admin: 03/09/17 21:56 Dose: 30 mg Quetiapine Fumarate (Seroquel) 100 mg PO [facility] Last Admin: 03/09/17 22:41 Dose: 100 mg Tiotropium [place] (Spiriva) 18 mcg INH RQ24 [facility] Last Admin: 03/10/17 08:33 Dose: Not Given - Labs Labs: 03/10/17 07:26 03/10/17 07:26 PT 9.6 SECONDS (9.7-12.2) L 03/09/17 00:00 INR 0.9 03/09/17 00:00 APTT 25 SECONDS (21-34) 03/09/17 00:00 - Constitutional Appears: Non-toxic, No Acute Distress, Cachectic, Chronically Ill - Eye Exam Eye Exam: EOMI, Normal appearance - ENT Exam ENT Exam: Mucous Membranes Moist - Respiratory Exam Respiratory Exam: Clear to Ausculation Bilateral, NORMAL BREATHING PATTERN - Cardiovascular Exam Cardiovascular Exam: REGULAR RHYTHM - GI/Abdominal Exam GI & Abdominal Exam: Soft, Tenderness. absent: Distended, Firm, Guarding, Rigid - Neurological Exam Neurological Exam: Alert, Awake, Oriented x3 Neuro motor strength exam: Left Upper Extremity: 5, Right Upper Extremity: 5, Left Lower Extremity: 5, Right Lower Extremity: 5 - Psychiatric Exam Psychiatric exam: Depressed, Flat Affect - Skin Skin Exam: Normal Color, Warm Assessment and Plan - Assessment and Plan (Free Text) Assessment: Assessment & Plan (1) Rectal bleeding Assessment and Plan: 03/10: Earlier this morning the patient had EGD, acute colitis/C Diff - now started on IV flagyl. Stool studies sent She did not need a blood transfusion. Hgb was higher today 11,6. Also moving to isolation room, increasing IVF to 125 FOBT positive Consult GI, Dr Pierre, help appreciated. NPO for possible colonoscopy. holding heparin and lovonox holding aspirin holding BP meds CT abd/pelvis, f/u official read from radiologist (2) COPD (chronic obstructive pulmonary disease) Assessment and Plan: 03/10: Recent hospitalization with COPD, complicated with narcotic use. Try to avoid narcotics if possible Pulmicort 0.5 INH Q12 (home med) SPiriva 18mcg ING Q24 (home med) Tiotropium [place] 1 inhaler INH once (3) Depression with anxiety Assessment and Plan: 03/10: As mentioned before, the patient is semi-homeless. She reports recent of family members. She has been asking for large quanities of narcotics recently and wants to go to [place] later. I frankly explained to her that we are following the State monitoring program Xanax 0.5mg PO TID PRN Lexapro 10mg PO Daily (home med) Remeron 7.5mg PO HS (home med) (4) HTN (hypertension) Assessment and Plan: holding Norvasc 5mg PO daily (home med) holding Lisinopril 5mg PO daily (home med) Monitor BP Heart healthy diet, 2Na diet (5) Prophylactic measure Assessment and Plan: SCDs hold ASA 81mg daily Pepcid IV 20mg BID hold Heparin 5,000 SC BID Activity as tolerated
[2017-03-10 12:39] LABS: C DIFF TOXIN A B NEGATIVE (NEGATIVE)
[2017-03-10 14:52] LABS: FECAL LEUKOCYTES POSITIVE (NEGATIVE)
[2017-03-11] MEDS: Sodium Chloride 0.9% 1,000 ML IV SCH ×3 (05:00→11:45)
[2017-03-11 07:22] LABS: BASO % 0.1 % (0.0-2.0); EOS # 0.1 K/uL (0.0-0.7); EOS % 0.7 % (0.0-4.0); HEMOGLOBIN 9.8 g/dL (11.0-16.0); LYMPH # 1.7 K/uL (1.0-4.3); MEAN CORPUSCULAR HEMOGLOBIN 30.8 pg (27.0-31.0); MEAN CORPUSCULAR HGB CONC 32.8 g/dL (33.0-37.0); MEAN PLATELET VOLUME 7.6 fL (7.2-11.7); MONO # 0.8 K/uL (0.0-0.8); MONO % 7.5 % (0.0-10.0); NEUT # 7.9 K/uL (1.8-7.0); NEUT % 75.7 % (50.0-75.0); RBC 3.18 Mil/uL (3.80-5.20); RED CELL DISTRIBUTION WIDTH 17.2 % (11.5-14.5); WHITE BLOOD COUNT 10.5 K/uL (4.8-10.8)
[2017-03-11] MEDS: Tiotropium 18 mcg Cap For Inhalation INH SCH (07:29)
[2017-03-11] MEDS: Budesonide 0.5 mg/2 ml Inhal Susp UD INH SCH (07:29)
[2017-03-11 07:33] LABS: ALBUMIN 2.5 g/dL (3.5-5.0)
[2017-03-11 07:35] LABS: GFR AFRICAN-AMERICAN > 60; GFR NON-AFRICAN AMERICAN > 60
[2017-03-11 07:36] LABS: ALT/SGPT 37 U/L (9-52); AST/SGOT 17 U/L (14-36); BLOOD UREA NITROGEN 6 mg/dL (7-17); CALCIUM 7.8 mg/dl (8.6-10.4)
[2017-03-11 07:37] LABS: MAGNESIUM 1.7 mg/dL (1.6-2.3)
--- NOTE | 2017-03-11 08:34 | CP.PCM.PN ---
Subjective - Date & Time of Evaluation Date of Evaluation: 03/11/17 Time of Evaluation: 08:30 - Subjective Subjective: No bleeding or diarrhea, stools forming. c/o diffuse abdominal pain disproportionate to physical findings Tolerating regular diet Objective - Vital Signs/Intake and Output Vital Signs (last 24 hours): Temp Pulse Resp BP Pulse Ox 98.3 F 83 20 146/70 95 03/11/17 07:03 03/11/17 07:03 03/11/17 07:03 03/11/17 07:03 03/11/17 07:03 - Medications Medications: Current Medications Acetaminophen (Tylenol 325mg Tab) 650 mg PO Q6 PRN PRN Reason: Fever >100.4 F Last Admin: 03/11/17 07:02 Dose: 650 mg Albuterol (Ventolin Hfa 90 Mcg/Actuation (8 G)) 1 puff IH RQ4 PRN PRN Reason: Shortness of Breath Last Admin: 03/09/17 07:45 Dose: 1 puff Budesonide (Pulmicort Respules) 0.5 mg INH RQ12 [facility] Last Admin: 03/11/17 07:29 Dose: 0.5 mg Escitalopram Oxalate (Lexapro) 20 mg PO DAILY [facility] Last Admin: 03/10/17 11:00 Dose: 20 mg Famotidine (Pepcid) 20 mg IVP Q12 [facility] Last Admin: 03/10/17 21:16 Dose: 20 mg Gabapentin (Neurontin) 100 mg PO TID [facility] Last Admin: 03/10/17 17:44 Dose: 100 mg Hydroxyzine HCl (Atarax) 25 mg PO BID [facility] Last Admin: 03/10/17 17:44 Dose: 25 mg Sodium Chloride (Sodium Chloride 0.9%) 1,000 mls @ 125 mls/hr IV .Q8H [facility] Last Admin: 03/11/17 05:02 Dose: Not Given Ibuprofen (Motrin Tab) 800 mg PO BID [facility] Last Admin: 03/10/17 17:45 Dose: Not Given Metronidazole (Flagyl) 500 mg PO Q8 [facility] Last Admin: 03/11/17 05:00 Dose: 500 mg Mirtazapine (Remeron) 30 mg PO [facility] Last Admin: 03/10/17 21:16 Dose: 30 mg Quetiapine Fumarate (Seroquel) 100 mg PO HS [facility] Last Admin: 03/10/17 21:16 Dose: 100 mg Tiotropium [place] (Spiriva) 18 mcg INH RQ24 [facility] Last Admin: 03/11/17 07:29 Dose: 18 mcg - Labs Labs: 03/11/17 07:09 03/11/17 07:09 PT 9.6 SECONDS (9.7-12.2) L 03/09/17 00:00 INR 0.9 03/09/17 00:00 APTT 25 SECONDS (21-34) 03/09/17 00:00 - Constitutional Appears: No Acute Distress - Head Exam Head Exam: ATRAUMATIC, NORMOCEPHALIC - Eye Exam Eye Exam: EOMI, PERRL - Respiratory Exam Respiratory Exam: NORMAL BREATHING PATTERN - Cardiovascular Exam Cardiovascular Exam: REGULAR RHYTHM, +S1 - GI/Abdominal Exam GI & Abdominal Exam: Soft, Tenderness, Normal Bowel Sounds. absent: Rigid, Mass , Rebound Additional comments: diffusely tender across upper and lower abdomen, no masses - Rectal Exam Rectal Exam: Deferred - Extremities Exam Extremities Exam: Normal Inspection Assessment and Plan (1) Hematochezia Status: Resolved (2) Acute blood loss anemia Status: Acute (3) H/O malignant neoplasm of rectum Status: Inactive (4) Acute colitis Assessment & Plan: colonoscopy findings revealed acute colitis suspicious for C diff though toxin was negative (patient had been on antibiotic therapy prior to sending stools including Flagyl) No further bleeding and diet being tolerated with formed stools. Consider discharge planning to outpatient follow up with GI clinic. Continue Flagyl po. Follow up stools and biopsy results from flex sig exam. Status: Acute
[2017-03-11] MEDS ORDERED: Potassium Chloride 20 mEq ER Tab PO ONE ×2 (08:35→11:41)
--- NOTE | 2017-03-11 14:04 | CARD ---
APPROVED REPORT EKG Measurement Heart [id number] ID [id number] <Conclusion> Normal sinus rhythm Septal infarct, age undetermined Abnormal ECG
[2017-03-11 17:09] VITALS: O2SAT 96
[2017-03-11 17:10] VITALS: BP 81/45; PULSE 80; RESP 16; TEMP 98.7
--- NOTE | 2017-03-11 21:35 | CP.PCM.DIS ---
<Payam Myles E - Last Filed: 03/11/17 21:35> Provider - Provider Date of Admission: 03/09/17 03:49 Attending physician: Dougie Calderon MD Time Spent in preparation of Discharge (in minutes): 45 Hospital Course - Lab Results Lab Results: Most Recent Lab Values WBC 10.5 K/uL (4.8-10.8) 03/11/17 07:09 RBC 3.18 Mil/uL (3.80-5.20) L 03/11/17 07:09 Hgb 9.8 g/dL (11.0-16.0) L 03/11/17 07:09 Hct 29.9 % (34.0-47.0) L 03/11/17 07:09 MCV 94.0 fL (81.0-99.0) 03/11/17 07:09 MCH 30.8 pg (27.0-31.0) 03/11/17 07:09 MCHC 32.8 g/dL (33.0-37.0) L 03/11/17 07:09 RDW 17.2 % (11.5-14.5) H 03/11/17 07:09 Plt Count 145 K/uL (130-400) 03/11/17 07:09 MPV 7.6 fL (7.2-11.7) 03/11/17 07:09 Neut % (Auto) 75.7 % (50.0-75.0) H 03/11/17 07:09 Lymph % (Auto) 16.0 % (20.0-40.0) L 03/11/17 07:09 Lynn % (Auto) 7.5 % (0.0-10.0) 03/11/17 07:09 Eos % (Auto) 0.7 % (0.0-4.0) 03/11/17 07:09 Baso % (Auto) 0.1 % (0.0-2.0) 03/11/17 07:09 Neut # 7.9 K/uL (1.8-7.0) H 03/11/17 07:09 Lymph # 1.7 K/uL (1.0-4.3) 03/11/17 07:09 Lynn # 0.8 K/uL (0.0-0.8) 03/11/17 07:09 Eos # 0.1 K/uL (0.0-0.7) 03/11/17 07:09 Baso # 0.0 K/uL (0.0-0.2) 03/11/17 07:09 Neutrophils % (Manual) 63 % (50-75) 03/09/17 07:44 Band Neutrophils % 9 % (0-2) H 03/09/17 07:44 Lymphocytes % (Manual) 19 % (20-40) L 03/09/17 07:44 Monocytes % (Manual) 8 % (0-10) 03/09/17 07:44 Eosinophils % (Manual) 1 % (0-4) 03/09/17 07:44 Platelet Estimate Normal (NORMAL) 03/09/17 07:44 Hypochromasia (manual) Slight 03/09/17 07:44 Anisocytosis (manual) Slight 03/09/17 07:44 PT 9.6 SECONDS (9.7-12.2) L 03/09/17 00:00 INR 0.9 03/09/17 00:00 APTT 25 SECONDS (21-34) 03/09/17 00:00 Puncture Site Lb 03/09/17 09:00 pCO2 35 mm/Hg (35-45) 03/09/17 09:00 pO2 86 mm/Hg (80-100) 03/09/17 09:00 HCO3 18.3 mmol/L (21-28) L 03/09/17 09:00 ABG pH 7.30 (7.35-7.45) L 03/09/17 09:00 ABG Total CO2 18.3 mmol/L (22-28) L 03/09/17 09:00 ABG O2 Saturation 99.7 % (95-98) H 03/09/17 09:00 ABG Base Excess -8.4 mmol/L (-2.0-3.0) L 03/09/17 09:00 Reyes Test Yes 03/09/17 09:00 VBG pH 7.15 (7.32-7.43) L* 03/09/17 01:28 VBG pCO2 55 mmHg (40-60) 03/09/17 01:28 VBG HCO3 15.1 mmol/L 03/09/17 01:28 VBG Total CO2 20.9 mmol/L (22-28) L 03/09/17 01:28 VBG O2 Sat (Calc) 40.7 % (40-65) 03/09/17 01:28 VBG Base Excess -10.0 mmol/L (0.0-2.0) L 03/09/17 01:28 VBG Potassium 4.2 mmol/L (3.6-5.2) 03/09/17 01:28 Sodium 141.0 mmol/l (132-148) 03/09/17 01:28 Chloride 115.0 mmol/L (98-107) H 03/09/17 01:28 Glucose 69 mg/dl (65-105) 03/09/17 01:28 Lactate 1.0 mmol/L (0.7-2.1) 03/09/17 01:28 Liter Flow 2.0 03/09/17 09:00 Crit Value Called To Dr arias 03/09/17 01:28 Crit Value Called By Taya salazar rt 03/09/17 01:28 Crit Value Read Back Y 03/09/17 01:28 Blood Gas Notified Time 134 03/09/17 01:28 Sodium 142 mmol/L (132-148) 03/11/17 07:09 Potassium 3.0 mmol/L (3.6-5.2) L 03/11/17 07:09 Chloride 114 mmol/L (98-107) H 03/11/17 07:09 Carbon Dioxide 21 mmol/L (22-30) L 03/11/17 07:09 Anion Gap 10 (10-20) 03/11/17 07:09 BUN 6 mg/dL (7-17) L 03/11/17 07:09 Creatinine 0.5 MG/DL (0.7-1.2) L 03/11/17 07:09 Est GFR ( Amer) > 60 03/11/17 07:09 Est GFR (Non-Af Amer) > 60 03/11/17 07:09 POC Glucose (mg/dL) 91 mg/dL (65-110) 03/09/17 07:27 Random Glucose 92 mg/dL (65-105) 03/11/17 07:09 Calcium 7.8 mg/dl (8.6-10.4) L 03/11/17 07:09 Phosphorus 1.9 mg/dL (2.5-4.5) L 03/11/17 07:09 Magnesium 1.7 mg/dL (1.6-2.3) 03/11/17 07:09 Total Bilirubin 0.6 mg/dL (0.2-1.3) 03/11/17 07:09 AST 17 U/L (14-36) 03/11/17 07:09 ALT 37 U/L (9-52) 03/11/17 07:09 Alkaline Phosphatase 53 U/L (38-126) 03/11/17 07:09 Total Creatine Kinase 51 U/L (30-135) 03/09/17 00:00 CK-MB (Mass) 2.52 ng/mL (0.0-3.38) 03/09/17 00:00 Troponin I < 0.0120 ng/mL (0.00-0.120) 03/09/17 00:00 C-React Prot High Sens > 15.00 mg/L (1.00-3.00) H 03/11/17 07:09 Total Protein 5.0 g/dL (6.3-8.3) L 03/11/17 07:09 Albumin 2.5 g/dL (3.5-5.0) L 03/11/17 07:09 Globulin 2.5 gm/dL (2.2-3.9) 03/11/17 07:09 Albumin/Globulin Ratio 1.0 (1.0-2.1) 03/11/17 07:09 Procalcitonin 2.59 NG/ML (0.19-0.49) H 03/09/17 11:00 Venous Blood Potassium 4.2 mmol/L (3.6-5.2) 03/09/17 01:28 Urine Color Yellow (YELLOW) 03/09/17 11:12 Urine Clarity Clear (Clear) 03/09/17 11:12 Urine pH 6.0 (5.0-8.0) 03/09/17 11:12 Ur Specific [place] 1.009 (1.003-1.030) 03/09/17 11:12 Urine Protein 1+ mg/dL (NEGATIVE) H 03/09/17 11:12 Urine Glucose (UA) Normal mg/dL (Normal) 03/09/17 11:12 Urine Ketones Negative mg/dL (NEGATIVE) 03/09/17 11:12 Urine Blood 3+ (NEGATIVE) H 03/09/17 11:12 Urine Nitrate Negative (NEGATIVE) 03/09/17 11:12 Urine Bilirubin Negative (NEGATIVE) 03/09/17 11:12 Urine Urobilinogen Normal mg/dL (0.2-1.0) 03/09/17 11:12 Ur Leukocyte Esterase 3+ Jessica/uL (Negative) H 03/09/17 11:12 Urine WBC (Auto) 51 /hpf (0-5) H 03/09/17 11:12 Urine RBC (Auto) 33 /hpf (0-3) H 03/09/17 11:12 Ur Squamous Epith Cells 2 /hpf (0-5) 03/09/17 11:12 Urine Bacteria Rare (<OCC) 03/09/17 11:12 Stool Occult Blood Positive (NEGATIVE) H 03/09/17 00:00 Stool Leukocytes, Qual Positive (NEGATIVE) H 03/10/17 10:00 Urine Opiates Screen Positive (NEGATIVE) H 03/09/17 11:12 Urine Methadone Screen Negative (NEGATIVE) 03/09/17 11:12 Ur Barbiturates Screen Negative (NEGATIVE) 03/09/17 11:12 Ur Phencyclidine Scrn Negative (NEGATIVE) 03/09/17 11:12 Ur Amphetamines Screen Negative (NEGATIVE) 03/09/17 11:12 U Benzodiazepines Scrn Negative (NEGATIVE) 03/09/17 11:12 U Oth Cocaine Metabols Negative (NEGATIVE) 03/09/17 11:12 U Cannabinoids Screen Negative (NEGATIVE) 03/09/17 11:12 Alcohol, Quantitative < 10 mg/dl (0-10) 03/09/17 01:46 C. difficile Ag & Toxin Negative (NEGATIVE) 03/10/17 10:00 Blood Type O POSITIVE 03/08/17 00:03 Antibody Screen Negative 03/08/17 00:03 - Hospital Course Hospital Course: As per admission: HPI: Mrs Escalona is a 61 yo F who presents to the ED for bright red blood per rectum. She states that she went to the bathroom yesterday around 4pm and noticed a large amount of blood in the toilet bowl. She says she went to the bathroom another 10-12x and had blood in the toilet every time. She admits to dysuria, shortness of breath, urinary retention, lower abdominal pain, fatigue, body aches, joint pain, palpitations, nausea. She denies chest pain, headaches, blurry vision, leg pain, vomiting Hospital Course: Patient is s 61 year old female with past medical history of COPD, Asthma, HTN, Sciatic and depression who presents to the ED on 03/09/17 with complaints of bright red blood per rectum with fecal occult test positive and a hemoglobin drop from 14-10.7 over the course of two days. Patient was then admitted and GI consult was placed and patient was evaluated by Dr. Graves, who recommended a colonscopy, while being medically managed. Patient had a colonoscopy on 03/10/17 , which showed acute colitis with edema, ulceration and possible pseudomembranes. Stool for C diff toxin was negative. Patient was then started on antibiotics. Patient started to improve and stated that she wants to go home. Patient was discharge and was instructed to complete her course of antibiotics as prescribed. Pertinent imaging: CT scan of the abdomen and pelvis: fluid filled small bowel loops and colon without evidence of bowel wall thickening or bowel obstruction. Left posterolateral abdominal wall hernia with herniation of portion of proximal descending colon. No evidence of incarceration This is a brief summary of events. For a complete course, refer to medical record. Discharge Exam - Head Exam Head Exam: ATRAUMATIC, NORMAL INSPECTION Discharge Plan - Discharge Medications Prescriptions: metroNIDAZOLE [Flagyl] 500 mg PO Q8 #21 tab - Follow Up Plan Condition: FAIR Disposition: HOME/ ROUTINE Instructions: Metronidazole (By mouth), Rectal Bleeding (DC), Colorectal Polyps (DC), Acute Urinary Retention in Women (GEN), Anemia (DC), Infectious Colitis (GEN) Additional Instructions: Please discharge patient home as per Dr. Cadena Please start this new medication: 1. Metronidazole 500mg PO q8h ( for 7 days). Patient will complete antibiotics on March 18, 2017 Please continue all home medications as prescribed. Please stop taking Ibuprofen 800mg PRN. Please follow up with your primary care of choice or [facility] Please follow up with GI (Stomach) physician, Dr. Graves within one week Please return to the hospital if symptoms resume. Referrals: Clinic,Med Surg [Non-Staff] - Kerwin Graves MD [Staff Provider] - <Santi Cadena M - Last Filed: 03/12/17 10:49> Provider - Provider Date of Admission: 03/09/17 03:49 Attending physician: Dougie Calderon MD Hospital Course - Lab Results Lab Results: Most Recent Lab Values WBC 10.5 K/uL (4.8-10.8) 03/11/17 07:09 RBC 3.18 Mil/uL (3.80-5.20) L 03/11/17 07:09 Hgb 9.8 g/dL (11.0-16.0) L 03/11/17 07:09 Hct 29.9 % (34.0-47.0) L 03/11/17 07:09 MCV 94.0 fL (81.0-99.0) 03/11/17 07:09 MCH 30.8 pg (27.0-31.0) 03/11/17 07:09 MCHC 32.8 g/dL (33.0-37.0) L 03/11/17 07:09 RDW 17.2 % (11.5-14.5) H 03/11/17 07:09 Plt Count 145 K/uL (130-400) 03/11/17 07:09 MPV 7.6 fL (7.2-11.7) 03/11/17 07:09 Neut % (Auto) 75.7 % (50.0-75.0) H 03/11/17 07:09 Lymph % (Auto) 16.0 % (20.0-40.0) L 03/11/17 07:09 Lynn % (Auto) 7.5 % (0.0-10.0) 03/11/17 07:09 Eos % (Auto) 0.7 % (0.0-4.0) 03/11/17 07:09 Baso % (Auto) 0.1 % (0.0-2.0) 03/11/17 07:09 Neut # 7.9 K/uL (1.8-7.0) H 03/11/17 07:09 Lymph # 1.7 K/uL (1.0-4.3) 03/11/17 07:09 Lynn # 0.8 K/uL (0.0-0.8) 03/11/17 07:09 Eos # 0.1 K/uL (0.0-0.7) 03/11/17 07:09 Baso # 0.0 K/uL (0.0-0.2) 03/11/17 07:09 Neutrophils % (Manual) 63 % (50-75) 03/09/17 07:44 Band Neutrophils % 9 % (0-2) H 03/09/17 07:44 Lymphocytes % (Manual) 19 % (20-40) L 03/09/17 07:44 Monocytes % (Manual) 8 % (0-10) 03/09/17 07:44 Eosinophils % (Manual) 1 % (0-4) 03/09/17 07:44 Platelet Estimate Normal (NORMAL) 03/09/17 07:44 Hypochromasia (manual) Slight 03/09/17 07:44 Anisocytosis (manual) Slight 03/09/17 07:44 PT 9.6 SECONDS (9.7-12.2) L 03/09/17 00:00 INR 0.9 03/09/17 00:00 APTT 25 SECONDS (21-34) 03/09/17 00:00 Puncture Site Lb 03/09/17 09:00 pCO2 35 mm/Hg (35-45) 03/09/17 09:00 pO2 86 mm/Hg (80-100) 03/09/17 09:00 HCO3 18.3 mmol/L (21-28) L 03/09/17 09:00 ABG pH 7.30 (7.35-7.45) L 03/09/17 09:00 ABG Total CO2 18.3 mmol/L (22-28) L 03/09/17 09:00 ABG O2 Saturation 99.7 % (95-98) H 03/09/17 09:00 ABG Base Excess -8.4 mmol/L (-2.0-3.0) L 03/09/17 09:00 Reyes Test Yes 03/09/17 09:00 VBG pH 7.15 (7.32-7.43) L* 03/09/17 01:28 VBG pCO2 55 mmHg (40-60) 03/09/17 01:28 VBG HCO3 15.1 mmol/L 03/09/17 01:28 VBG Total CO2 20.9 mmol/L (22-28) L 03/09/17 01:28 VBG O2 Sat (Calc) 40.7 % (40-65) 03/09/17 01:28 VBG Base Excess -10.0 mmol/L (0.0-2.0) L 03/09/17 01:28 VBG Potassium 4.2 mmol/L (3.6-5.2) 03/09/17 01:28 Sodium 141.0 mmol/l (132-148) 03/09/17 01:28 Chloride 115.0 mmol/L (98-107) H 03/09/17 01:28 Glucose 69 mg/dl (65-105) 03/09/17 01:28 Lactate 1.0 mmol/L (0.7-2.1) 03/09/17 01:28 Liter Flow 2.0 03/09/17 09:00 Crit Value Called To Dr arias 03/09/17 01:28 Crit Value Called By Taya salazar rt 03/09/17 01:28 Crit Value Read Back Y 03/09/17 01:28 Blood Gas Notified Time 134 03/09/17 01:28 Sodium 142 mmol/L (132-148) 03/11/17 07:09 Potassium 3.0 mmol/L (3.6-5.2) L 03/11/17 07:09 Chloride 114 mmol/L (98-107) H 03/11/17 07:09 Carbon Dioxide 21 mmol/L (22-30) L 03/11/17 07:09 Anion Gap 10 (10-20) 03/11/17 07:09 BUN 6 mg/dL (7-17) L 03/11/17 07:09 Creatinine 0.5 MG/DL (0.7-1.2) L 03/11/17 07:09 Est GFR ( Amer) > 60 03/11/17 07:09 Est GFR (Non-Af Amer) > 60 03/11/17 07:09 POC Glucose (mg/dL) 91 mg/dL (65-110) 03/09/17 07:27 Random Glucose 92 mg/dL (65-105) 03/11/17 07:09 Calcium 7.8 mg/dl (8.6-10.4) L 03/11/17 07:09 Phosphorus 1.9 mg/dL (2.5-4.5) L 03/11/17 07:09 Magnesium 1.7 mg/dL (1.6-2.3) 03/11/17 07:09 Total Bilirubin 0.6 mg/dL (0.2-1.3) 03/11/17 07:09 AST 17 U/L (14-36) 03/11/17 07:09 ALT 37 U/L (9-52) 03/11/17 07:09 Alkaline Phosphatase 53 U/L (38-126) 03/11/17 07:09 Total Creatine Kinase 51 U/L (30-135) 03/09/17 00:00 CK-MB (Mass) 2.52 ng/mL (0.0-3.38) 03/09/17 00:00 Troponin I < 0.0120 ng/mL (0.00-0.120) 03/09/17 00:00 C-React Prot High Sens > 15.00 mg/L (1.00-3.00) H 03/11/17 07:09 Total Protein 5.0 g/dL (6.3-8.3) L 03/11/17 07:09 Albumin 2.5 g/dL (3.5-5.0) L 03/11/17 07:09 Globulin 2.5 gm/dL (2.2-3.9) 03/11/17 07:09 Albumin/Globulin Ratio 1.0 (1.0-2.1) 03/11/17 07:09 Procalcitonin 2.59 NG/ML (0.19-0.49) H 03/09/17 11:00 Venous Blood Potassium 4.2 mmol/L (3.6-5.2) 03/09/17 01:28 Urine Color Yellow (YELLOW) 03/09/17 11:12 Urine Clarity Clear (Clear) 03/09/17 11:12 Urine pH 6.0 (5.0-8.0) 03/09/17 11:12 Ur Specific [place] 1.009 (1.003-1.030) 03/09/17 11:12 Urine Protein 1+ mg/dL (NEGATIVE) H 03/09/17 11:12 Urine Glucose (UA) Normal mg/dL (Normal) 03/09/17 11:12 Urine Ketones Negative mg/dL (NEGATIVE) 03/09/17 11:12 Urine Blood 3+ (NEGATIVE) H 03/09/17 11:12 Urine Nitrate Negative (NEGATIVE) 03/09/17 11:12 Urine Bilirubin Negative (NEGATIVE) 03/09/17 11:12 Urine Urobilinogen Normal mg/dL (0.2-1.0) 03/09/17 11:12 Ur Leukocyte Esterase 3+ Jessica/uL (Negative) H 03/09/17 11:12 Urine WBC (Auto) 51 /hpf (0-5) H 03/09/17 11:12 Urine RBC (Auto) 33 /hpf (0-3) H 03/09/17 11:12 Ur Squamous Epith Cells 2 /hpf (0-5) 03/09/17 11:12 Urine Bacteria Rare (<OCC) 03/09/17 11:12 Stool Occult Blood Positive (NEGATIVE) H 03/09/17 00:00 Stool Leukocytes, Qual Positive (NEGATIVE) H 03/10/17 10:00 Urine Opiates Screen Positive (NEGATIVE) H 03/09/17 11:12 Urine Methadone Screen Negative (NEGATIVE) 03/09/17 11:12 Ur Barbiturates Screen Negative (NEGATIVE) 03/09/17 11:12 Ur Phencyclidine Scrn Negative (NEGATIVE) 03/09/17 11:12 Ur Amphetamines Screen Negative (NEGATIVE) 03/09/17 11:12 U Benzodiazepines Scrn Negative (NEGATIVE) 03/09/17 11:12 U Oth Cocaine Metabols Negative (NEGATIVE) 03/09/17 11:12 U Cannabinoids Screen Negative (NEGATIVE) 03/09/17 11:12 Alcohol, Quantitative < 10 mg/dl (0-10) 03/09/17 01:46 C. difficile Ag & Toxin Negative (NEGATIVE) 03/10/17 10:00 Blood Type O POSITIVE 03/08/17 00:03 Antibody Screen Negative 03/08/17 00:03 Attending/Attestation - Attestation I have personally seen and examined this patient.: Yes I have fully participated in the care of the patient.: Yes I have reviewed all pertinent clinical information, including history, physical exam and plan: Yes Notes (Text): 03/12/17 10:48 Patient was seen and examined at bedside with the resident Patient stated that she is feeling much better No complaint of diarrhea or hematochezia. We will discharge patient to home I agree with the discharge note by the resident.
== END 2017-03-11 16:40 | disposition home or self-care (01) | DRG 372 ==
LOC: C.ER 23:11 → C.6T 03-09 03:49
PROVIDERS: ADMIT Family Medicine; ATTEND Family Medicine
PROC: 0DBE8ZX Excision of Large Intestine, Via Natural or Artificial Opening Endoscopic, Diagnostic (ICD-10-PCS; principal; 2017-03-10 09:00)
DX: A04.7 Enterocolitis due to Clostridium difficile (principal); D62 Acute posthemorrhagic anemia; I10 Essential (primary) hypertension; J44.9 Chronic obstructive pulmonary disease, unspecified; R33.9 Retention of urine, unspecified; M54.30 Sciatica, unspecified side; F41.8 Other specified anxiety disorders; K64.2 Third degree hemorrhoids; Z85.048 Personal history of other malignant neoplasm of rectum, rectosigmoid junction, and anus; Z79.52 Long term (current) use of systemic steroids; Z86.73 Personal history of transient ischemic attack (TIA), and cerebral infarction without residual deficits; Z87.891 Personal history of nicotine dependence; K43.9 Ventral hernia without obstruction or gangrene; I25.2 Old myocardial infarction